=== PATIENT | male | born 1940 | race Caucasian/White ===

== ENCOUNTER 2018-10-04 06:52 | Day surgery (SDC) | payer BC ==
[2018-10-04] VITALS (17 sets, daily range): BP systolic 102–164; BP diastolic 51–99
[~2018-10-04] VITALS: Ht 175.3 cm; Wt 89.5 kg
[2018-10-04] MEDS ORDERED: normal saline 1000ml 1,000 ML IV SCH (07:10)
[2018-10-04] MEDS ORDERED: losartan (07:56)
[2018-10-04] MEDS ORDERED: LEVO150T PO (07:57)
[2018-10-04] MEDS ORDERED: ATOR10TA70 PO (07:58)
[2018-10-04 08:17] LABS: BASOPHILS % (AUTO) 0.3 % (0-1); EOSINOPHILS # (AUTO) 0.1 X10'3 (0-0.9); EOSINOPHILS % (AUTO) 1.5 % (0-6); HEMATOCRIT 40.9 % (42.0-52.0); HEMOGLOBIN 13.9 g/dl (14.0-17.9); LYMPHOCYTES # (AUTO) 0.3 X10'3 (1.1-4.8); LYMPHOCYTES % (AUTO) 6.4 % (21-51); MEAN CORPUSCULAR VOLUME 105.8 FL (78-98); MEAN PLATELET VOLUME 8.4 FL (7.4-10.4); MONOCYTES # (AUTO) 0.4 X10'3 (0-0.9); MONOCYTES % (AUTO) 10.1 % (2-12); NEUTROPHILS # (AUTO) 3.4 X10'3 (1.8-7.7); NEUTROPHILS % (AUTO) 81.7 % (42-75); PLATELET COUNT 233 X10'3 (140-440); RED BLOOD COUNT 3.86 X10'6 (4.70-6.10); WHITE BLOOD COUNT 4.1 X10'3 (4.5-11.0)
[2018-10-04] MEDS ORDERED: midazolam 2 mg/2 ml injection ONE (09:05)
[2018-10-04] MEDS ORDERED: fentaNYL/PF 50MCG/1 ML 2ML syringe ONE ×2 (09:05→09:12)
[2018-10-04] MEDS ORDERED: LIDOcaine 1%/PF 5ML 10 MG/ML VIAL SQ ONE (09:45)
[2018-10-04] MEDS ORDERED: fentaNYL/PF 50MCG/1 ML 2ML syringe IV PRN (09:45)
[2018-10-04 09:49] LABS: ALBUMIN 4.6 G/DL (3.4-5.0); ANION GAP 13 (8-16); BLOOD UREA NITROGEN 21 MG/DL (7-18); CALCIUM 10.5 MG/DL (8.5-10.1); CHLORIDE 98 MMOL/L (99-107); CREATININE 1.05 MG/DL (0.60-1.10); GLUCOSE 103 MG/DL (70-104); POTASSIUM 4.2 MMOL/L (3.5-5.1); SODIUM 135 MMOL/L (135-145); TOTAL CARBON DIOXIDE 23.7 MMOL/L (24-32); eGFR 68 ML/MIN
== END 2018-10-04 11:20 | disposition home or self-care (01) ==
LOC: SSTAY O 06:52
PROVIDERS: ATTEND Radiology Vascular & Interventional Radiology
DX: M89.8X8 Other specified disorders of bone, other site (principal); Z85.46 Personal history of malignant neoplasm of prostate; Z98.890 Other specified postprocedural states; Z98.49 Cataract extraction status, unspecified eye
CPT/HCPCS: 20225; 36415; 77012; 80048; 85025; 87070; J2250; J3010; J7030

== ENCOUNTER 2018-10-13 08:33 | Emergency (ER) | payer BC ==
[~2018-10-13] VITALS: Ht 175.3 cm; Wt 72.4 kg
[~2018-10-13 08:33] MED LIST: ATOR10TA70 PO; LEVO150T PO; losartan
[2018-10-13 08:43] VITALS: BP 135/84
[2018-10-13] MEDS ORDERED: METH4TAB81 PO (09:55)
[2018-10-13] MEDS ORDERED: DOXY100C43 PO (09:55)
== END 2018-10-13 10:09 | disposition home or self-care (01) ==
LOC: ER 08:33
DX: M79.672 Pain in left foot (principal); R22.42 Localized swelling, mass and lump, left lower limb; I10 Essential (primary) hypertension; G89.29 Other chronic pain; Z85.46 Personal history of malignant neoplasm of prostate; Z98.890 Other specified postprocedural states; Z79.899 Other long term (current) drug therapy
CPT/HCPCS: 73610; 99283

== ENCOUNTER 2019-02-02 09:19 | Emergency (ER) | payer BC, MEDICARE ==
[~2019-02-02] VITALS: Ht 175.3 cm; Wt 73.5 kg
[~2019-02-02 09:19] MED LIST changes: +METH4TAB81 PO
[2019-02-02] MEDS ORDERED: morphine 4 MG/ML inj SYRINge IV PRN (09:25)
[2019-02-02] MEDS ORDERED: normal saline 1000ML IV soln IVB ONE (09:25)
[2019-02-02] MEDS ORDERED: ondansetron/PF 4mg/2ml inj IV ONE (09:25)
[2019-02-02 10:06] LABS: CLARITY,URINE CLEAR (Clear); COLOR,URINE YELLOW (Yellow); GLUCOSE, URINE NEGATIVE (Neg); KETONES,URINE TRACE mg/dl (Neg); LEUKOCYTE ESTERASE ,URINE NEGATIVE (Neg); NITRITES, URINE NEGATIVE (Neg); OCCULT BLOOD,URINE NEGATIVE (Neg); PROTEIN,URINE TRACE mg/dl (Neg); UROBILINOGEN,URINE 0.2 E.U/dL (0.2-1.0)
[2019-02-02 10:08] LABS: UA COLLECTION TYPE CLN CATCH MIDSTREAM
[2019-02-02 10:11] LABS: BASOPHILS % (AUTO) 0.3 % (0-1); EOSINOPHILS % (AUTO) 0.4 % (0-6); HEMATOCRIT 38.1 % (42.0-52.0); HEMOGLOBIN 13.1 g/dl (14.0-17.9); LYMPHOCYTES # (AUTO) 0.3 X10'3 (1.1-4.8); LYMPHOCYTES % (AUTO) 5.2 % (21-51); MEAN CORPUSCULAR HEMOGLOBIN 36.2 PG (27.0-31.0); MEAN CORPUSCULAR HGB CONC 34.3 g/dL (33.0-36.5); MEAN CORPUSCULAR VOLUME 105.3 FL (78-98); MEAN PLATELET VOLUME 8.6 FL (7.4-10.4); MONOCYTES # (AUTO) 0.7 X10'3 (0-0.9); MONOCYTES % (AUTO) 11.1 % (2-12); NEUTROPHILS # (AUTO) 5.2 X10'3 (1.8-7.7); PLATELET COUNT 241 X10'3 (140-440); RED BLOOD COUNT 3.62 X10'6 (4.70-6.10); RED CELL DISTRIBUTION WIDTH 13.6 % (11.5-14.5); WHITE BLOOD COUNT 6.3 X10'3 (4.5-11.0)
[2019-02-02 10:17] LABS: HYALINE CASTS 0-3 /LPF (NEGATIVE)
[2019-02-02 10:18] LABS: BACTERIA,URINE FEW /HPF (Neg); RBC,URINE 0-2 /HPF (0-2); SQUAMOUS EPITHELIAL CELL,UR FEW /LPF (FEW); WBC,URINE 0-4 /HPF (0-4)
--- NOTE | 2019-02-02 10:22 | NUR ---
Covering Primary RN for break. Pt complains of tight spots in his chest over the last couple of minutes. EKG performed and Dr Ross notified. No new orders at this time.
[2019-02-02 10:24] LABS: ALANINE AMINOTRANSFERASE 30 U/L (12-78); ALBUMIN/GLOBULIN RATIO 1.2 (1.1-1.5); ALKALINE PHOSPHATASE 72 IU/L (46-116); ANION GAP 9 (8-16); ASPARTATE AMINO TRANSFERASE 20 U/L (10-37); BILIRUBIN,TOTAL 1.5 MG/DL (0.1-1.0); BLOOD UREA NITROGEN 20 MG/DL (7-18); BUN/CREATININE RATIO 17.1 (5.4-32.0); CHLORIDE 96 MMOL/L (99-107); CREATININE 1.17 MG/DL (0.60-1.10); GLUCOSE 105 MG/DL (70-104); LIPASE 85 U/L (73-393); POTASSIUM 4.1 MMOL/L (3.5-5.1); SODIUM 129 MMOL/L (135-145); TOTAL CARBON DIOXIDE 24.1 MMOL/L (24-32); TOTAL PROTEIN 7.4 G/DL (6.4-8.2); eGFR 60 ML/MIN
[2019-02-02 10:25] VITALS: BP 147/105
--- NOTE | 2019-02-02 10:26 | NUR ---
Pt states he is not having chest tightness at this time.
== END 2019-02-02 10:41 | disposition home or self-care (01) ==
LOC: ER 09:19
DX: E87.1 Hypo-osmolality and hyponatremia (principal); R10.9 Unspecified abdominal pain; M54.9 Dorsalgia, unspecified; I10 Essential (primary) hypertension; G89.29 Other chronic pain; Z98.890 Other specified postprocedural states; Z79.899 Other long term (current) drug therapy
CPT/HCPCS: 36415; 74176; 80053; 81001; 83690; 85025; 93005; 99284; J7030

== ENCOUNTER 2019-04-14 07:52 | Day surgery (SDC) | payer BC, MEDICARE ==
[~2019-04-14] VITALS: Ht 175.3 cm; Wt 88.9 kg
[2019-04-14] VITALS (8 sets, daily range): BP systolic 118–144; BP diastolic 56–77
[2019-04-14] MEDS ORDERED: normal saline 1000ml 1,000 ML IV PRN (08:20)
[2019-04-14] MEDS ORDERED: AMLO10TA13 PO (08:35)
[2019-04-14] MEDS ORDERED: DULO30CA52 PO (08:35)
[2019-04-14] MEDS ORDERED: FLO0.4C PO (08:35)
[2019-04-14] MEDS ORDERED: CLON0.5T5 PO (08:35)
[2019-04-14] MEDS ORDERED: ALEN70TA37 PO (08:35)
[2019-04-14 09:09] LABS: BASOPHILS % (AUTO) 0.3 % (0-1); EOSINOPHILS % (AUTO) 0.5 % (0-6); HEMATOCRIT 45.1 % (42.0-52.0); HEMOGLOBIN 15.6 g/dl (14.0-17.9); LYMPHOCYTES # (AUTO) 0.3 X10'3 (1.1-4.8); LYMPHOCYTES % (AUTO) 6.6 % (21-51); MEAN CORPUSCULAR HGB CONC 34.6 g/dL (33.0-36.5); MEAN CORPUSCULAR VOLUME 104.2 FL (78-98); MEAN PLATELET VOLUME 8.1 FL (7.4-10.4); MONOCYTES # (AUTO) 0.5 X10'3 (0-0.9); MONOCYTES % (AUTO) 11.9 % (2-12); NEUTROPHILS # (AUTO) 3.6 X10'3 (1.8-7.7); NEUTROPHILS % (AUTO) 80.7 % (42-75); PLATELET COUNT 254 X10'3 (140-440); RED BLOOD COUNT 4.32 X10'6 (4.70-6.10); RED CELL DISTRIBUTION WIDTH 13.9 % (11.5-14.5); WHITE BLOOD COUNT 4.5 X10'3 (4.5-11.0)
[2019-04-14 09:22] LABS: ALBUMIN 4.6 G/DL (3.4-5.0); ANION GAP 8 (8-16); BLOOD UREA NITROGEN 18 MG/DL (7-18); BUN/CREATININE RATIO 15.9 (5.4-32.0); CALCIUM 9.8 MG/DL (8.5-10.1); CHLORIDE 99 MMOL/L (99-107); CREATININE 1.13 MG/DL (0.60-1.10); GLUCOSE 114 MG/DL (70-104); POTASSIUM 4.4 MMOL/L (3.5-5.1); SODIUM 134 MMOL/L (135-145); TOTAL CARBON DIOXIDE 27.2 MMOL/L (24-32); eGFR 63 ML/MIN
[2019-04-14] MEDS ORDERED: LIDOcaine 1%/PF 5ML 10 MG/ML VIAL SQ ONE (10:10)
[2019-04-14] MEDS ORDERED: fentaNYL/PF 50MCG/1 ML 2ML syringe IV PRN (10:10)
[2019-04-14] MEDS ORDERED: fentaNYL/PF 50MCG/1 ML 2ML syringe ONE ×2 (10:13→10:34)
[2019-04-14] MEDS ORDERED: LIDOcaine 1%/PF 5ML 10 MG/ML VIAL ONE (10:15)
[2019-04-14] MEDS ORDERED: LIDOcaine 1% 30ml preserv. free vial SQ ONE (10:40)
[2019-04-14] MEDS ORDERED: midazolam 2 mg/2 ml injection ONE (10:52)
[2019-04-14] MEDS ORDERED: normal saline 1000ml 1,000 ML IV SCH (12:06)
[2019-04-14] MEDS ORDERED: HYDROcodone/acetaminophen 5mg/325mg tablet PO PRN (12:10)
[2019-04-14] MEDS ORDERED: morphine 4 MG/ML inj SYRINge IV PRN (12:10)
== END 2019-04-14 13:00 | disposition home or self-care (01) ==
LOC: SSTAY O 07:52
PROVIDERS: ATTEND Radiology Diagnostic Radiology
DX: R93.89 Abnormal findings on diagnostic imaging of other specified body structures (principal); E03.9 Hypothyroidism, unspecified; E78.00 Pure hypercholesterolemia, unspecified; I10 Essential (primary) hypertension; Z85.46 Personal history of malignant neoplasm of prostate; Z98.890 Other specified postprocedural states; Z98.1 Arthrodesis status; Z79.899 Other long term (current) drug therapy
CPT/HCPCS: 20225; 36415; 77002; 80048; 85025; 99152; 99153; J2250; J3010; J7030

== ENCOUNTER 2019-12-15 08:18 | Emergency (ER) | payer BC ==
[~2019-12-15] VITALS: Ht 175.3 cm; Wt 87.7 kg
[~2019-12-15 08:18] MED LIST changes: +ALEN70TA37 PO; +AMLO10TA13 PO; +CLON0.5T5 PO; +DULO30CA52 PO; +FLO0.4C PO; -METH4TAB81 PO
[2019-12-15 09:31] VITALS: BP 149/98
[2019-12-15] MEDS ORDERED: ketorolac tromethamine 15mg/ml inj. IM ONE (09:35)
[2019-12-15] MEDS ORDERED: orphenadrine citrate 60mg/2ml inj. IM ONE (09:35)
[2019-12-15] MEDS ORDERED: GABA300C PO (09:36)
[2019-12-15] MEDS ORDERED: METH-360 PO (09:36)
== END 2019-12-15 09:55 | disposition home or self-care (01) ==
LOC: ER 08:19
DX: M54.31 Sciatica, right side (principal); M54.32 Sciatica, left side; I10 Essential (primary) hypertension; G89.29 Other chronic pain; Z85.9 Personal history of malignant neoplasm, unspecified; Z98.890 Other specified postprocedural states; Z79.899 Other long term (current) drug therapy
CPT/HCPCS: 96372; 99284; J1885; J2360

== ENCOUNTER 2019-12-19 07:03 | Emergency (ER) | payer BC ==
[~2019-12-19] VITALS: Ht 175.3 cm; Wt 70.0 kg
[~2019-12-19 07:03] MED LIST changes: +GABA300C PO; +METH-360 PO
[2019-12-19 07:06] VITALS: BP 116/68
[2019-12-19] MEDS ORDERED: LIDOcaine 2% 10ml TOPICAL JELLY (Urojet) TP ONE (07:30)
--- NOTE | 2019-12-19 08:05 | NUR ---
PT STATES HE WOULD NOT LIKE TO HAVE THE F/C AT THIS TIME AND WOULD LIKE TO ATTEMPT IN THE URINAL. UNABLE TO VOID AT THIS TIME. MD NOTIFED AND OKAY FOR PT TO WAIT UNTIL AFTER MRI BUT ADVISE HIM HE WILL HAVE TO VOID PRIOR TO D/C. PT ADVISED. WAITING MRI.
--- NOTE | 2019-12-19 08:44 | NUR ---
TO CT VIA W/C
[2019-12-19 08:45] LABS: CLARITY,URINE CLEAR (Clear); COLOR,URINE YELLOW (Yellow); GLUCOSE, URINE NEGATIVE (Neg); KETONES,URINE 15 mg/dl (Neg); LEUKOCYTE ESTERASE ,URINE NEGATIVE (Neg); NITRITES, URINE NEGATIVE (Neg); OCCULT BLOOD,URINE NEGATIVE (Neg); PROTEIN,URINE 30 mg/dl (Neg)
[2019-12-19 08:54] LABS: UA COLLECTION TYPE CLN CATCH MIDSTREAM
[2019-12-19 08:55] LABS: BACTERIA,URINE NONE SEEN /HPF (Neg); COARSE GRANULAR CAST 0-3 /LPF (NEGATIVE); MUCUS STRANDS FEW /LPF (Neg); RBC,URINE NONE SEEN /HPF (0-2); SQUAMOUS EPITHELIAL CELL,UR FEW /LPF (FEW); WBC,URINE 0-4 /HPF (0-4)
--- NOTE | 2019-12-19 10:22 | NUR ---
PT IS ABLE TO URINATE INTO URINAL AT FREQUENT INTERVALS WITH @100CC AT A TIME. PT VERBALIZING HE IS READY TO GO HOME TO HAVE BREAKFAST AND FEED HIS ANIMALS. ADVISED.
[2019-12-19] MEDS ORDERED: SENN-263 PO (10:41)
== END 2019-12-19 10:49 | disposition home or self-care (01) ==
LOC: ER 07:03
DX: M54.5 Low back pain (principal); K59.00 Constipation, unspecified; G89.29 Other chronic pain; R33.9 Retention of urine, unspecified; I10 Essential (primary) hypertension; Z98.890 Other specified postprocedural states; Z79.899 Other long term (current) drug therapy
CPT/HCPCS: 72148; 81001; 99284

== ENCOUNTER 2019-12-27 01:17 | Emergency (ER) | payer BC ==
[~2019-12-27] VITALS: Ht 175.3 cm; Wt 85.9 kg
[~2019-12-27 01:17] MED LIST changes: +SENN-263 PO
[2019-12-27 01:21] VITALS: BP 101/60
[2019-12-27 01:47] LABS: BASOPHILS % (AUTO) 0.3 % (0-1); EOSINOPHILS # (AUTO) 0.1 X10'3 (0-0.9); EOSINOPHILS % (AUTO) 0.8 % (0-6); HEMATOCRIT 36.4 % (42.0-52.0); HEMOGLOBIN 12.2 g/dl (14.0-17.9); LYMPHOCYTES # (AUTO) 0.3 X10'3 (1.1-4.8); LYMPHOCYTES % (AUTO) 3.7 % (21-51); MEAN CORPUSCULAR HEMOGLOBIN 35.7 PG (27.0-31.0); MEAN CORPUSCULAR HGB CONC 33.6 g/dL (33.0-36.5); MEAN CORPUSCULAR VOLUME 106.3 FL (78-98); MEAN PLATELET VOLUME 7.9 FL (7.4-10.4); MONOCYTES # (AUTO) 0.7 X10'3 (0-0.9); MONOCYTES % (AUTO) 10.3 % (2-12); NEUTROPHILS % (AUTO) 84.9 % (42-75); PLATELET COUNT 338 X10'3 (140-440); RED BLOOD COUNT 3.42 X10'6 (4.70-6.10); RED CELL DISTRIBUTION WIDTH 13.6 % (11.5-14.5)
[2019-12-27 02:09] LABS: CLARITY,URINE CLEAR (Clear); COLOR,URINE YELLOW (Yellow); GLUCOSE, URINE NEGATIVE (Neg); KETONES,URINE NEGATIVE (Neg); LEUKOCYTE ESTERASE ,URINE NEGATIVE (Neg); NITRITES, URINE NEGATIVE (Neg); OCCULT BLOOD,URINE TRACE-INTACT (Neg); PH,URINE 6.5 (4.8-8.0); PROTEIN,URINE NEGATIVE (Neg); UROBILINOGEN,URINE 0.2 E.U/dL (0.2-1.0)
[2019-12-27 02:14] LABS: UA COLLECTION TYPE CLN CATCH MIDSTREAM
[2019-12-27 02:15] LABS: BACTERIA,URINE NONE SEEN /HPF (Neg); RBC,URINE 0-2 /HPF (0-2); SQUAMOUS EPITHELIAL CELL,UR FEW /LPF (FEW); WBC,URINE NONE SEEN /HPF (0-4)
[2019-12-27 02:19] LABS: ALANINE AMINOTRANSFERASE 23 U/L (12-78); ALBUMIN 3.3 G/DL (3.4-5.0); ALBUMIN/GLOBULIN RATIO 0.9 (1.1-1.5); ALKALINE PHOSPHATASE 105 IU/L (46-116); ANION GAP 9 (8-16); ASPARTATE AMINO TRANSFERASE 19 U/L (10-37); BILIRUBIN,TOTAL 0.7 MG/DL (0.1-1.0); BLOOD UREA NITROGEN 12 MG/DL (7-18); BUN/CREATININE RATIO 9.2 (5.4-32.0); CALCIUM 8.7 MG/DL (8.5-10.1); CHLORIDE 99 MMOL/L (99-107); GLUCOSE 136 MG/DL (70-104); POTASSIUM 4.3 MMOL/L (3.5-5.1); SODIUM 133 MMOL/L (135-145); TOTAL CARBON DIOXIDE 24.8 MMOL/L (24-32); TOTAL PROTEIN 6.8 G/DL (6.4-8.2); eGFR 53 ML/MIN
[2019-12-27] MEDS ORDERED: dexamethasone sod phosphate 10mg/ml inj IM STA (02:33)
--- NOTE | 2019-12-27 02:43 | NUR ---
CALLED [facility] FOR ROUND TRIP TO [facility] AND BACK FOR MRI AT 02:43. ETA FOR PAUL 15 MINS
--- NOTE | 2019-12-27 03:06 | NUR ---
PT PICKED UP BY [facility] FOR TRANSPORT TO [facility] MRI.
== END 2019-12-27 04:09 | disposition short-term general hospital (02) ==
LOC: ER 01:18
DX: R33.9 Retention of urine, unspecified (principal); R10.2 Pelvic and perineal pain; K59.00 Constipation, unspecified; I10 Essential (primary) hypertension; G89.29 Other chronic pain; Z85.9 Personal history of malignant neoplasm, unspecified; Z98.890 Other specified postprocedural states; Z79.899 Other long term (current) drug therapy
CPT/HCPCS: 36415; 51702; 80053; 81001; 85025; 96372; 99285; J1100; 99284

== ENCOUNTER 2020-04-25 21:34 | Emergency (ER) | payer BC ==
[~2020-04-25] VITALS: Ht 175.3 cm; Wt 86.4 kg
[2020-04-25] MEDS ORDERED: LIDOcaine 2% 10ml TOPICAL JELLY (Urojet) TP ONE (22:00)
[2020-04-26 00:26] VITALS: BP 168/93
== END 2020-04-26 00:15 | disposition home or self-care (01) ==
LOC: ER 21:34
DX: T83.011A Breakdown (mechanical) of indwelling urethral catheter, initial encounter (principal); R33.9 Retention of urine, unspecified; N48.89 Other specified disorders of penis; G89.29 Other chronic pain; Z98.890 Other specified postprocedural states; Z79.899 Other long term (current) drug therapy; Y69 Unspecified misadventure during surgical and medical care; Y92.89 Other specified places as the place of occurrence of the external cause
CPT/HCPCS: 51702; 99284

== ENCOUNTER 2020-05-29 10:08 | Inpatient (IN) | payer BC ==
[~2020-05-29] VITALS: Ht 175.3 cm; Wt 81.0 kg
[2020-05-29] MEDS ORDERED: nitroGLYCERIN 0.4mg/hour patch TD ONE (11:50)
[2020-05-29] MEDS ORDERED: normal saline 1000ML IV soln IVB ONE (11:50)
[2020-05-29 11:56] LABS: BASOPHILS % (AUTO) 0.1 % (0-1); EOSINOPHILS % (AUTO) 0.1 % (0-6); HEMATOCRIT 36.6 % (42.0-52.0); HEMOGLOBIN 12.6 g/dl (14.0-17.9); LYMPHOCYTES # (AUTO) 0.3 X10'3 (1.1-4.8); LYMPHOCYTES % (AUTO) 3.2 % (21-51); MEAN CORPUSCULAR HEMOGLOBIN 35.9 PG (27.0-31.0); MEAN CORPUSCULAR HGB CONC 34.4 g/dL (33.0-36.5); MEAN CORPUSCULAR VOLUME 104.3 FL (78-98); MEAN PLATELET VOLUME 8.5 FL (7.4-10.4); MONOCYTES # (AUTO) 0.7 X10'3 (0-0.9); NEUTROPHILS # (AUTO) 7.2 X10'3 (1.8-7.7); NEUTROPHILS % (AUTO) 88.6 % (42-75); PLATELET COUNT 247 X10'3 (140-440); RED BLOOD COUNT 3.51 X10'6 (4.70-6.10); RED CELL DISTRIBUTION WIDTH 14.8 % (11.5-14.5); WHITE BLOOD COUNT 8.2 X10'3 (4.5-11.0)
[2020-05-29 12:18] LABS: ALANINE AMINOTRANSFERASE 35 U/L (12-78); ALBUMIN 3.6 G/DL (3.4-5.0); ALKALINE PHOSPHATASE 114 IU/L (46-116); ANION GAP 9 (8-16); ASPARTATE AMINO TRANSFERASE 26 U/L (10-37); BILIRUBIN,TOTAL 1.3 MG/DL (0.1-1.0); BLOOD UREA NITROGEN 25 MG/DL (7-18); BUN/CREATININE RATIO 17.7 (5.4-32.0); CALCIUM 9.4 MG/DL (8.5-10.1); CHLORIDE 99 MMOL/L (99-107); CREATININE 1.41 MG/DL (0.60-1.10); GLUCOSE 124 MG/DL (70-104); POTASSIUM 4.1 MMOL/L (3.5-5.1); SODIUM 133 MMOL/L (135-145); TOTAL CARBON DIOXIDE 25.3 MMOL/L (24-32); TOTAL PROTEIN 7.1 G/DL (6.4-8.2); eGFR 48 ML/MIN
[2020-05-29 13:01] LABS: CLARITY,URINE CLEAR (Clear); COLOR,URINE YELLOW (Yellow); GLUCOSE, URINE NEGATIVE (Neg); KETONES,URINE NEGATIVE (Neg); LEUKOCYTE ESTERASE ,URINE NEGATIVE (Neg); NITRITES, URINE NEGATIVE (Neg); OCCULT BLOOD,URINE NEGATIVE (Neg); PROTEIN,URINE NEGATIVE (Neg); UROBILINOGEN,URINE 0.2 E.U/dL (0.2-1.0)
[2020-05-29 13:08] LABS: UA COLLECTION TYPE CLN CATCH MIDSTREAM
[2020-05-29] MEDS ORDERED: ondansetron/PF 4mg/2ml inj IV PRN (15:00)
[2020-05-29] MEDS ORDERED: normal saline 1000ml 1,000 ML IV SCH (15:00)
[2020-05-29] MEDS ORDERED: magnesium 2GM in 50ml NS 50 ML IV PRN (15:00)
[2020-05-29] MEDS ORDERED: potassium CL 10mEq/100ml bag 100 ML IV PRN ×2 (15:00)
[2020-05-29] MEDS ORDERED: magnesium Cl slow-release 64mg tablet PO PRN (15:00)
[2020-05-29] MEDS ORDERED: acetaminophen 325mg tablet PO PRN ×2 (15:00)
[2020-05-29] MEDS ORDERED: magnesium 4gm in 100ml NS 100 ML IV PRN (15:00)
[2020-05-29] MEDS ORDERED: morphine 2 MG/ML inj. syringe IV PRN (15:00)
[2020-05-29] MEDS ORDERED: HYDROcodone/acetaminophen 5mg/325mg tablet PO PRN (15:00)
[2020-05-29] MEDS ORDERED: potassium Cl 20 mEq SR tablet PO PRN ×2 (15:00)
[2020-05-29] MEDS ORDERED: HYDR-3686 PO (15:17)
[2020-05-29] MEDS ORDERED: LOSA100T57 PO (15:17)
[2020-05-29] MEDS ORDERED: ACET-1 PO (15:18)
[2020-05-29] MEDS ORDERED: TRAZ-251 PO (15:18)
[2020-05-29 15:38] LABS: HEMOGLOBIN A1C 5.6 % (4.5-6.2)
[2020-05-29] MEDS ORDERED: DUTA1CPM4 PO (15:52)
[2020-05-29] MEDS ORDERED: LEVO500T89 PO (19:00)
--- NOTE | 2020-05-29 19:01 | NUR ---
Patient in room ED 5. I have received report from Jay PEARSON and had the opportunity to ask questions and assume patient care.
[2020-05-29 19:35] VITALS: BP 141/83
[2020-05-29] MEDS: K and/or MAG REPLACEMENT MC SCH (20:00)
[2020-05-29] MEDS ORDERED: hydrOXYzine 25 MG tablet PO SCH (21:00)
[2020-05-29] MEDS ORDERED: traZODone 50mg tablet PO SCH (21:00)
[2020-05-29] MEDS: docusate sod 100mg capsule PO SCH (21:40)
[2020-05-29] MEDS: heparin, porcine 5000 units/ml vial SQ SCH (21:40)
[2020-05-29 22:00] VITALS: BP 117/60
[2020-05-30 02:00] VITALS: BP 115/70
--- NOTE | 2020-05-30 06:30 | NUR ---
received report from eric james
[2020-05-30 06:51] LABS: BASOPHILS % (AUTO) 0.5 % (0-1); EOSINOPHILS % (AUTO) 0.7 % (0-6); HEMOGLOBIN 10.8 g/dl (14.0-17.9); LYMPHOCYTES # (AUTO) 0.4 X10'3 (1.1-4.8); LYMPHOCYTES % (AUTO) 8.4 % (21-51); MEAN CORPUSCULAR HEMOGLOBIN 35.1 PG (27.0-31.0); MEAN CORPUSCULAR HGB CONC 33.8 g/dL (33.0-36.5); MEAN CORPUSCULAR VOLUME 103.8 FL (78-98); MEAN PLATELET VOLUME 7.9 FL (7.4-10.4); MONOCYTES # (AUTO) 0.6 X10'3 (0-0.9); MONOCYTES % (AUTO) 12.9 % (2-12); NEUTROPHILS # (AUTO) 3.6 X10'3 (1.8-7.7); NEUTROPHILS % (AUTO) 77.5 % (42-75); PLATELET COUNT 205 X10'3 (140-440); RED BLOOD COUNT 3.08 X10'6 (4.70-6.10); RED CELL DISTRIBUTION WIDTH 14.9 % (11.5-14.5); WHITE BLOOD COUNT 4.6 X10'3 (4.5-11.0)
[2020-05-30 06:54] LABS: ALANINE AMINOTRANSFERASE 27 U/L (12-78); ALKALINE PHOSPHATASE 95 IU/L (46-116); ANION GAP 8 (8-16); ASPARTATE AMINO TRANSFERASE 18 U/L (10-37); BILIRUBIN,TOTAL 0.9 MG/DL (0.1-1.0); BLOOD UREA NITROGEN 20 MG/DL (7-18); BUN/CREATININE RATIO 19.4 (5.4-32.0); CALCIUM 8.1 MG/DL (8.5-10.1); CHLORIDE 104 MMOL/L (99-107); CHOL/HDL RATIO 1.3 (0.00-4.99); CHOLESTEROL 161 MG/DL (0-200); CREATININE 1.03 MG/DL (0.60-1.10); GLUCOSE 92 MG/DL (70-104); HDL CHOLESTEROL 122 MG/DL (35-60); LDL CHOLESTEROL 36 MG/DL (50-100); POTASSIUM 3.8 MMOL/L (3.5-5.1); SODIUM 136 MMOL/L (135-145); TOTAL CARBON DIOXIDE 23.8 MMOL/L (24-32); TRIGLYCERIDES 52 MG/DL (20-135); eGFR 69 ML/MIN
[2020-05-30 07:00] VITALS: BP 119/65
[2020-05-30] MEDS ORDERED: amLODIPine 5mg tablet PO SCH (08:00)
[2020-05-30] MEDS ORDERED: dutasteride 0.5 MG capsule PO SCH (08:00)
[2020-05-30] MEDS ORDERED: atorvastatin 20mg tablet PO SCH (08:00)
[2020-05-30] MEDS: K and/or MAG REPLACEMENT MC SCH (08:00)
[2020-05-30] MEDS ORDERED: sennosides 8.6mg tablet PO SCH (08:00)
[2020-05-30] MEDS ORDERED: tamsulosin 0.4mg capsule PO SCH (08:00)
[2020-05-30] MEDS ORDERED: losartan 50mg tablet PO SCH (08:00)
[2020-05-30] MEDS ORDERED: levoFLOXACIN 250mg tablet PO SCH (08:00)
[2020-05-30] MEDS ORDERED: levoTHYROXINE 75mcg tablet PO SCH (08:00)
[2020-05-30] MEDS: docusate sod 100mg capsule PO SCH (09:28)
[2020-05-30] MEDS: heparin, porcine 5000 units/ml vial SQ SCH (09:32)
[2020-05-30 10:00] VITALS: BP 146/75
--- NOTE | 2020-05-30 13:00 | NUR ---
pt d/c with instructions, understanding of instructions and w/all belongings in wheelchair accompanied by nursing staff to private vehicle to go home and f/u w/pcp
== END 2020-05-30 13:33 | disposition home or self-care (01) | DRG 948 ==
LOC: ER 10:08 → ED HOLD 14:58 → ORTHO 4S 19:25
PROVIDERS: ADMIT Internal Medicine; ATTEND Internal Medicine
DX: R53.1 Weakness (principal); E03.9 Hypothyroidism, unspecified; E78.00 Pure hypercholesterolemia, unspecified; E78.5 Hyperlipidemia, unspecified; G89.4 Chronic pain syndrome; I12.9 Hypertensive chronic kidney disease with stage 1 through stage 4 chronic kidney disease, or unspecified chronic kidney disease; M19.90 Unspecified osteoarthritis, unspecified site; N18.30 Chronic kidney disease, stage 3 unspecified; M54.9 Dorsalgia, unspecified; Z91.81 History of falling; Z87.891 Personal history of nicotine dependence
CPT/HCPCS: 36415; 70450; 70544; 70551; 71045; 80053; 80061; 81003; 83036; 83735; 84443; 84484; 85025; 85610; 87081; 93005; 93306; 93880; 97161; 97530; G0378; J1644; J7030; Q0177

== ENCOUNTER → 2020-09-26 | Emergency (ER) | payer BC ==
[~2020-09-26] VITALS: Ht 177.8 cm; Wt 90.0 kg
[~2020-09-26] MED LIST changes: -CLON0.5T5 PO; +DUTA1CPM4 PO; +FINA5TAB12 PO; +HYDR-3686 PO; +LIDOcaine 2% 10ml TOPICAL JELLY (Urojet) TP ONE; +LOSA100T57 PO; -METH-360 PO; +TRAZ-251 PO; -losartan; +normal saline 1000ml 1,000 ML IV ONE
[2020-09-26 07:40] VITALS: BP 162/74
[2020-09-26 10:15] LABS: BASOPHILS % (AUTO) 0.3 % (0-1); EOSINOPHILS % (AUTO) 0.8 % (0-6); HEMATOCRIT 37.2 % (42.0-52.0); HEMOGLOBIN 12.5 g/dl (14.0-17.9); LYMPHOCYTES # (AUTO) 0.3 X10'3 (1.1-4.8); LYMPHOCYTES % (AUTO) 10.5 % (21-51); MEAN CORPUSCULAR HGB CONC 33.5 g/dL (33.0-36.5); MEAN CORPUSCULAR VOLUME 104.4 FL (78-98); MEAN PLATELET VOLUME 8.6 FL (7.4-10.4); MONOCYTES # (AUTO) 0.4 X10'3 (0-0.9); MONOCYTES % (AUTO) 12.9 % (2-12); NEUTROPHILS # (AUTO) 2.4 X10'3 (1.8-7.7); NEUTROPHILS % (AUTO) 75.5 % (42-75); PLATELET COUNT 222 X10'3 (140-440); RED BLOOD COUNT 3.56 X10'6 (4.70-6.10); RED CELL DISTRIBUTION WIDTH 14.2 % (11.5-14.5); WHITE BLOOD COUNT 3.1 X10'3 (4.5-11.0)
[2020-09-26 10:25] LABS: ALANINE AMINOTRANSFERASE 35 U/L (12-78); ALBUMIN 3.9 G/DL (3.4-5.0); ALBUMIN/GLOBULIN RATIO 1.1 (1.1-1.5); ALKALINE PHOSPHATASE 101 IU/L (46-116); ANION GAP 7 (8-16); ASPARTATE AMINO TRANSFERASE 39 U/L (10-37); BILIRUBIN,TOTAL 0.5 MG/DL (0.1-1.0); BLOOD UREA NITROGEN 14 MG/DL (7-18); BUN/CREATININE RATIO 16.1 (5.4-32.0); CALCIUM 9.2 MG/DL (8.5-10.1); CHLORIDE 97 MMOL/L (99-107); CREATININE 0.87 MG/DL (0.60-1.10); GLUCOSE 115 MG/DL (70-104); POTASSIUM 4.6 MMOL/L (3.5-5.1); SODIUM 131 MMOL/L (135-145); TOTAL CARBON DIOXIDE 26.7 MMOL/L (24-32); TOTAL PROTEIN 7.4 G/DL (6.4-8.2); eGFR 84 ML/MIN
== END | disposition home or self-care (01) ==
LOC: ER 07:38
DX: R34 Anuria and oliguria (principal); R33.9 Retention of urine, unspecified; E78.00 Pure hypercholesterolemia, unspecified; I10 Essential (primary) hypertension; E03.9 Hypothyroidism, unspecified; M19.90 Unspecified osteoarthritis, unspecified site; G89.29 Other chronic pain; Z72.89 Other problems related to lifestyle; Z98.890 Other specified postprocedural states; Z79.899 Other long term (current) drug therapy
CPT/HCPCS: 36415; 80053; 85025; 99283

== ENCOUNTER 2020-09-27 03:47 | Emergency (ER) | payer BC ==
[~2020-09-27] VITALS: Ht 175.3 cm; Wt 87.3 kg
[~2020-09-27 03:47] MED LIST changes: -FINA5TAB12 PO; -FLO0.4C PO; -LIDOcaine 2% 10ml TOPICAL JELLY (Urojet) TP ONE; -normal saline 1000ml 1,000 ML IV ONE
[2020-09-27 03:57] VITALS: BP 126/70
[2020-09-27] MEDS ORDERED: LIDOcaine 2% 10ml TOPICAL JELLY (Urojet) TP ONE (04:10)
--- NOTE | 2020-09-27 05:46 | NUR ---
Bladder scan reveals 628 mls urine in bladder with Renae in place. Approx. 300 ml yellow, cloudy urine in leg bag. Pt Renae DC'd per MD order. 5 mls fluid drawn out of balloon and Renae removed. Pt was able to void approx 400 ml urine w/ gross hematuria and clots into urinal. Pt stated relief of pain after Renae removal. Pt refused to have another Renae placed. MD discussed risks and benefits w/ patient.
[2020-09-28] MEDS ORDERED: FLO0.4C PO ×2 (13:24→16:24)
[2020-09-28] MEDS ORDERED: FINA5TAB12 PO (13:24)
== END 2020-09-27 05:59 | disposition left against medical advice (07) ==
LOC: ER 03:48
DX: Z53.29 Procedure and treatment not carried out because of patient's decision for other reasons (principal); R33.9 Retention of urine, unspecified; R10.30 Lower abdominal pain, unspecified; R31.0 Gross hematuria; E78.00 Pure hypercholesterolemia, unspecified; I10 Essential (primary) hypertension; E03.9 Hypothyroidism, unspecified; M19.90 Unspecified osteoarthritis, unspecified site; G89.29 Other chronic pain; Z87.440 Personal history of urinary (tract) infections; Z85.9 Personal history of malignant neoplasm, unspecified; Z98.890 Other specified postprocedural states; Z72.89 Other problems related to lifestyle; Z79.899 Other long term (current) drug therapy
CPT/HCPCS: 99284

== ENCOUNTER 2020-09-28 09:07 | Inpatient (IN) | payer BC ==
[~2020-09-28] VITALS: Ht 182.9 cm; Wt 94.0 kg
--- NOTE | 2020-09-28 09:20 | NUR ---
Respond to stroke alert bed 4, pt has stroke sympoms of left arm, and leg weakness. He is unable to remember when this started. He was in our ed yesterday for urine retention and left ama. I have call in to caregiver Guillermo who found him this morning. Left message. Pt is has multiple abrasions on right side, and under both arms. Will go to CT as soon as it is available.
[2020-09-28] MEDS ORDERED: iohexol 350MG/ML 100ml bottle IV ONE (09:32)
[2020-09-28 09:34] LABS: BASOPHILS % (AUTO) 0.1 % (0-1); EOSINOPHILS % (AUTO) 0 % (0-6); HEMATOCRIT 36.4 % (42.0-52.0); HEMOGLOBIN 12.2 g/dl (14.0-17.9); LYMPHOCYTES # (AUTO) 0.2 X10'3 (1.1-4.8); LYMPHOCYTES % (AUTO) 0.9 % (21-51); MEAN CORPUSCULAR HEMOGLOBIN 34.9 PG (27.0-31.0); MEAN CORPUSCULAR HGB CONC 33.5 g/dL (33.0-36.5); MEAN CORPUSCULAR VOLUME 104.4 FL (78-98); MEAN PLATELET VOLUME 9.1 FL (7.4-10.4); MONOCYTES # (AUTO) 0.6 X10'3 (0-0.9); MONOCYTES % (AUTO) 2.4 % (2-12); NEUTROPHILS # (AUTO) 25.5 X10'3 (1.8-7.7); NEUTROPHILS % (AUTO) 96.6 % (42-75); PLATELET COUNT 125 X10'3 (140-440); RED BLOOD COUNT 3.48 X10'6 (4.70-6.10); RED CELL DISTRIBUTION WIDTH 14.7 % (11.5-14.5)
[2020-09-28] MEDS ORDERED: normal saline 1000ML IV soln IVB ONE (09:35)
[2020-09-28 09:37] LABS: WHITE BLOOD COUNT 26.4 X10'3 (4.5-11.0)
[2020-09-28] MEDS ORDERED: levoFLOXACIN-Levaquin 750MG/D5 150 ML IV ONE (09:40)
[2020-09-28 09:51] LABS: PARTIAL THROMBOPLASTIN TIME 35 SECONDS (22-32)
[2020-09-28 09:54] LABS: PLATELET ESTIMATE DECREASED; TOTAL CELLS COUNTED 100
--- NOTE | 2020-09-28 09:57 | NUR ---
CRITICAL FROM LAB, LACTIC ACID 4.6, NOTIFIED
--- NOTE | 2020-09-28 10:00 | NUR ---
Pt back from CT, Dr. wilcox via SOC for telemedicine consult. NIHSS 9
[2020-09-28 10:02] LABS: ALANINE AMINOTRANSFERASE 255 U/L (12-78); ALBUMIN/GLOBULIN RATIO 0.8 (1.1-1.5); ALKALINE PHOSPHATASE 96 IU/L (46-116); ANION GAP 14 (8-16); ASPARTATE AMINO TRANSFERASE 903 U/L (10-37); BILIRUBIN,TOTAL 1.6 MG/DL (0.1-1.0); BLOOD UREA NITROGEN 33 MG/DL (7-18); BUN/CREATININE RATIO 16.2 (5.4-32.0); CALCIUM 8.3 MG/DL (8.5-10.1); CHLORIDE 92 MMOL/L (99-107); CREATININE 2.04 MG/DL (0.60-1.10); ETHANOL < 0.010 GM/DL (0.0-0.010); GLUCOSE 139 MG/DL (70-104); SODIUM 126 MMOL/L (135-145); TROPONIN I < 0.04 NG/ML (0.0-0.05); eGFR 32 ML/MIN
[2020-09-28 10:03] LABS: POTASSIUM 6.2 MMOL/L (3.5-5.1)
[2020-09-28] MEDS ORDERED: insulin regular, human U-100 3ml vial - multi-dose IV ONE (10:20)
[2020-09-28] MEDS ORDERED: CALCIUM GLUC 1gm/50ml NACL,iso 100 ML IV ONE (10:20)
[2020-09-28] MEDS ORDERED: dextrose 50%-water 50ml dispensing syringe IV ONE (10:20)
[2020-09-28] MEDS ORDERED: albuterol 2.5 MG/3 ML nebule NEB ONE (10:20)
[2020-09-28] MEDS ORDERED: normal saline 1000ML IV soln IV ONE (10:25)
--- NOTE | 2020-09-28 10:30 | NUR ---
Guillermo client care representative returns call, he discovered pt wedged between bed and wall this morning, he saw him last at 5pm yesterday. Dr. Soriano and Dr. De Los Santos updated. Dr. Soriano aware of labs, GFR and potential renal impairment. CTA ordered to rule out LVO .
--- NOTE | 2020-09-28 11:00 | NUR ---
Pt does now report he remembers falling to floor due to weakness, this was some time prior to midnight.
--- NOTE | 2020-09-28 11:08 | NUR ---
rn attempted to place muñoz for urine. cannot get past prostate. md notified.
[2020-09-28] MEDS ORDERED: TETanus/Pertussis (Acell)/Diphther VAC/PF (Tdap-Adult) 0.5ml syringe IMVAC ONE (11:50)
--- NOTE | 2020-09-28 12:00 | NUR ---
Pt is currently in CT for CTA head and neck.
[2020-09-28] MEDS ORDERED: LIDOcaine 2% 10ml TOPICAL JELLY (Urojet) MM ONE (12:05)
[2020-09-28] MEDS ORDERED: mag hydrox/Alum hydrox/simeth 30ml oral suspension PO PRN (12:20)
[2020-09-28] MEDS: normal saline 1000ml 1,000 ML IV SCH ×2 (12:20→23:17)
[2020-09-28] MEDS ORDERED: magnesium hydroxide 30ml (MOM) UD suspension PO PRN (12:20)
[2020-09-28] MEDS ORDERED: acetaminophen 325mg tablet PO PRN ×2 (12:20)
[2020-09-28] MEDS ORDERED: morphine 2 MG/ML inj. syringe IV PRN (12:20)
[2020-09-28 12:59] LABS: CHOL/HDL RATIO 1.3 (0.00-4.99); CHOLESTEROL 181 MG/DL (0-200); HDL CHOLESTEROL 135 MG/DL (35-60); LDL CHOLESTEROL 28 MG/DL (50-100); TRIGLYCERIDES 97 MG/DL (20-135)
--- NOTE | 2020-09-28 13:00 | NUR ---
REPORT CALLED TO MICHEL MINER
--- NOTE | 2020-09-28 13:02 | NUR ---
Patient in room . I have received report from Katie PEARSON and had the opportunity to ask questions and assume patient care.
--- NOTE | 2020-09-28 13:19 | NUR ---
PER EMS PATIENT LIVING IN VERY POOR CONDITIONS. PATIENT COVERED IN DIRT LIKE HE FELL OUTSIDE. PER EMS PATIENT WAS INSIDE. PATIENT BEING TAKEN UPSTAIRS AND REPORTS HE WOULD LIKE TO LEAVE. RN TRIED TO EXPLAIN PATIETN TOO SICK TO LEAVE AND NOT APPROPRIATE LIVING CONDITIONS.
[2020-09-28] MEDS ORDERED: FLO0.4C PO ×2 (13:24→16:24)
[2020-09-28] MEDS ORDERED: FINA5TAB12 PO (13:24)
[2020-09-28 13:45] LABS: URINE AMPHETAMINE SCREEN NEGATIVE (Neg); URINE BARBITUATE SCREEN NEGATIVE (Neg); URINE BENZODIAZEPINES SCREEN NEGATIVE (Neg); URINE CANNABINOID SCREEN NEGATIVE (Neg); URINE COCAINE SCREEN NEGATIVE (Neg); URINE METHADONE SCREEN NEGATIVE (Neg); URINE OPIATE SCREEN NEGATIVE (Neg); URINE PHENCYCLIDINE SCREEN NEGATIVE (Neg)
[2020-09-28 13:47] LABS: CLARITY,URINE BLOODY (Clear); COLOR,URINE RED (Yellow); UA COLLECTION TYPE FOLEY CATH
[2020-09-28 13:53] LABS: BACTERIA,URINE 3+ /HPF (Neg); RBC,URINE TNTC /HPF (0-2)
[2020-09-28 13:54] LABS: MUCUS STRANDS MODERATE /LPF (Neg); SQUAMOUS EPITHELIAL CELL,UR FEW /LPF (FEW); TRANSITIONAL EPI CELLS,URINE MANY /HPF
[2020-09-28 13:55] LABS: HYALINE CASTS 0-3 /LPF (NEGATIVE)
[2020-09-28 13:56] LABS: WBC,URINE 50-100 /HPF (0-4)
[2020-09-28 14:02] LABS: POTASSIUM 4.4 MMOL/L (3.5-5.1)
[2020-09-28 14:15] LABS: WBC CLUMPS,URINE MANY /HPF (NEGATIVE)
--- NOTE | 2020-09-28 14:16 | NUR ---
PAGER ID: [phone] MESSAGE: [phone] Doni Thomas. His left upper arm is more swollen than the right and his sensation is decrease. Do you want a vascular study? also has 3+ bacteria in urine only on Zosyn. Alessandra ext [phone]
[2020-09-28 14:25] VITALS: BP 106/67
[2020-09-28 15:03] LABS: CREATINE KINASE 92568 U/L (39-308)
--- NOTE | 2020-09-28 15:18 | NUR ---
promotional table spacer PAGER ID: [phone] MESSAGE: [place] [id number]. Alessandra ext [phone]
--- NOTE | 2020-09-28 16:15 | NUR ---
PAGER ID: [phone] MESSAGE: [phone] William concern for compartment syndrome secondary to rhabdo. ZAIN [phone]
--- NOTE | 2020-09-28 16:20 | NUR ---
Spoke with Dr. Martinez about possibility of compartment syndrome in the patients left arm due to decreased pulse in his left radius and the need to doppler it with increased upper extremity swelling. He asked to make sure a CPK is ordered for the next couple of days and that he will consult ortho. Addendum: 09/28/20 at 1637 by Alessandra Gresham RN Spoke to Dr. Martinez and he consulted Dr. Nuno Silverio and he said to keep an eye on his Left upper extremity and if it is soft swelling it is OK. But if it becomes rock hard than to page him or call Dr. Nuno Silverio
[2020-09-28] MEDS ORDERED: aspirin 300mg supp.rect RC ONE (16:40)
[2020-09-28] MEDS: piperacillin/tazo 4.5gm/100ml 100 ML IV SCH ×2 (16:47→23:14)
[2020-09-28] MEDS: morphine 2 MG/ML inj. syringe IV PRN ×2 (17:38→21:14)
--- NOTE | 2020-09-28 17:51 | NUR ---
patient is being transported to mri
--- NOTE | 2020-09-28 18:32 | NUR ---
Patient in room ORTHO 4006. I have received report from Theresa PEARSON and had the opportunity to ask questions and assume patient care. Addendum: 09/28/20 at 1832 by Alessandra Gresham RN Problems reprioritized. Patient report given, Theresa PEARSON questions answered & plan of care reviewed with .
[2020-09-28] MEDS: finasteride 5mg tablet PO SCH (21:00)
[2020-09-28] MEDS: traZODone 50mg tablet PO SCH (21:04)
[2020-09-28] MEDS: duloxetine 30mg CAPSULE.DR PO SCH (21:04)
[2020-09-28 22:00] VITALS: BP 96/56
[2020-09-29] VITALS (7 sets, daily range): BP systolic 88–120; BP diastolic 47–62
--- NOTE | 2020-09-29 06:36 | NUR ---
Problems reprioritized. Patient report given, questions answered & plan of care reviewed with MICHEL GALVAN AND MICHEL SANCHEZ.
--- NOTE | 2020-09-29 06:38 | NUR ---
Patient in room ORTHO 4006. I have received report from Alvina PEARSON and had the opportunity to ask questions and assume patient care.
[2020-09-29 06:55] LABS: BASOPHILS % (AUTO) 0.3 % (0-1); EOSINOPHILS # (AUTO) 0.1 X10'3 (0-0.9); EOSINOPHILS % (AUTO) 0.4 % (0-6); HEMATOCRIT 38.8 % (42.0-52.0); HEMOGLOBIN 12.9 g/dl (14.0-17.9); LYMPHOCYTES # (AUTO) 0.1 X10'3 (1.1-4.8); LYMPHOCYTES % (AUTO) 0.8 % (21-51); MEAN CORPUSCULAR HEMOGLOBIN 35.4 PG (27.0-31.0); MEAN CORPUSCULAR HGB CONC 33.2 g/dL (33.0-36.5); MEAN CORPUSCULAR VOLUME 106.6 FL (78-98); MEAN PLATELET VOLUME 9.3 FL (7.4-10.4); MONOCYTES # (AUTO) 0.7 X10'3 (0-0.9); MONOCYTES % (AUTO) 4.6 % (2-12); NEUTROPHILS # (AUTO) 13.3 X10'3 (1.8-7.7); NEUTROPHILS % (AUTO) 93.9 % (42-75); PLATELET COUNT 79 X10'3 (140-440); RED BLOOD COUNT 3.64 X10'6 (4.70-6.10); RED CELL DISTRIBUTION WIDTH 15.1 % (11.5-14.5); WHITE BLOOD COUNT 14.2 X10'3 (4.5-11.0)
--- NOTE | 2020-09-29 06:57 | NUR ---
Patient in room ORTHO 4006. I have received report from MICHEL Cardenas and had the opportunity to ask questions and assume patient care. Gema Harkins RN will provide care for pt. I will monitor all care and assist when needed.
[2020-09-29] MEDS: normal saline 1000ml 1,000 ML IV SCH ×2 (08:20→20:01)
[2020-09-29 08:46] LABS: TOTAL CELLS COUNTED 100
[2020-09-29 08:47] LABS: PLATELET ESTIMATE DECREASED
[2020-09-29 09:03] LABS: ALANINE AMINOTRANSFERASE 654 U/L (12-78); ALBUMIN 2.2 G/DL (3.4-5.0); ALBUMIN/GLOBULIN RATIO 0.6 (1.1-1.5); ALKALINE PHOSPHATASE 73 IU/L (46-116); ANION GAP 15 (8-16); BILIRUBIN,TOTAL 1.2 MG/DL (0.1-1.0); BLOOD UREA NITROGEN 48 MG/DL (7-18); CALCIUM 6.8 MG/DL (8.5-10.1); CHLORIDE 98 MMOL/L (99-107); CREATININE 2.53 MG/DL (0.60-1.10); GLUCOSE 111 MG/DL (70-104); POTASSIUM 5.6 MMOL/L (3.5-5.1); SODIUM 129 MMOL/L (135-145); TOTAL PROTEIN 5.9 G/DL (6.4-8.2); eGFR 25 ML/MIN
[2020-09-29] MEDS: levoTHYROXINE 75mcg tablet PO SCH (09:31)
[2020-09-29] MEDS: duloxetine 30mg CAPSULE.DR PO SCH ×2 (09:31→20:02)
[2020-09-29] MEDS: piperacillin/tazo 4.5gm/100ml 100 ML IV SCH ×3 (09:47→23:48)
[2020-09-29 09:50] LABS: ASPARTATE AMINO TRANSFERASE 3212 U/L (10-37); CREATINE KINASE > 100000 U/L (39-308)
[2020-09-29] MEDS: atorvastatin 10mg tablet PO SCH (09:52)
--- NOTE | 2020-09-29 11:07 | NUR ---
Cj Consult: Cj Anne; skin intact per EMR. Addendum: 09/29/20 at [address] Amended: Links added.
--- NOTE | 2020-09-29 11:55 | NUR ---
Page Sent PAGER ID: [phone] MESSAGE: LAURA PEARSON [phone] RE: GAIL CADE 4006... POSITIVE BLOOD CULTURE, 09/28/20 [id number] ANEROBIC GRAM - SUHAS
[2020-09-29] MEDS: sodium bicarbonate (8.4%) inj. 50 MEQ in dextrose 5%-water 1,000 ML IV SCH ×2 (12:52→23:48)
[2020-09-29] MEDS: morphine 2 MG/ML inj. syringe IV PRN (13:08)
--- NOTE | 2020-09-29 13:08 | NUR ---
PT C/O PAIN 03/25. SPOKE WITH MD WHO RECOMMENDED 2MG MORPHINE. PULL MEDICATIONS OUT OF OMNICELL AND PT REFUSED MORPHINE. PT STATED HE WANTED NORCO INSTEAD. RETURNED MORPHINE AND PULLED NORCO OUT OF OMNICELL. PT THEN CHANGED HIS MIND AND STATED HE WANTED THE MORPHINE AND NOT THE NORCO. RETURNED THE NORCO AND PULLED MORPHINE OUT OF OMNICELL. ADMINISTERED MORPHINE PER MD ORDER.
--- NOTE | 2020-09-29 18:30 | NUR ---
Patient in room ORTHO 4006. I have received report from Shahana PEARSON & Vale RN and had the opportunity to ask questions and assume patient care. 1800 VS not done, pt was in imaging
--- NOTE | 2020-09-29 18:46 | NUR ---
Problems reprioritized. Patient report given, questions answered & plan of care reviewed with Maria D PEARSON.
--- NOTE | 2020-09-29 18:48 | NUR ---
Orientee documentation: I have reviewed and agree with all interventions, assessments performed and documented by Hanna Harkins.
--- NOTE | 2020-09-29 18:49 | NUR ---
Orientee documentation: I have reviewed and agree with all interventions, assessments performed and documented by Hanna Harkins.
[2020-09-29] MEDS: finasteride 5mg tablet PO SCH (20:02)
[2020-09-29] MEDS: traZODone 50mg tablet PO SCH (20:02)
[2020-09-29] MEDS: lactobacillus rhamnosus 10,000 MMU CELLS/CAPSULE PO SCH (20:02)
[2020-09-30] VITALS (7 sets, daily range): BP systolic 100–118; BP diastolic 50–62
[2020-09-30] MEDS: normal saline 1000ml 1,000 ML IV SCH ×2 (04:20→14:20)
--- NOTE | 2020-09-30 06:38 | NUR ---
Problems reprioritized. Patient report given, questions answered & plan of care reviewed with Maritza PEARSON & Robin Student RN.
--- NOTE | 2020-09-30 06:59 | NUR ---
Patient in room ORTHO 4006. I have received report from Andi PEARSON and had the opportunity to ask questions and assume patient care.
[2020-09-30] MEDS: levoTHYROXINE 75mcg tablet PO SCH (07:15)
[2020-09-30] MEDS: duloxetine 30mg CAPSULE.DR PO SCH ×2 (07:56→21:12)
[2020-09-30] MEDS: atorvastatin 10mg tablet PO SCH (07:57)
[2020-09-30] MEDS: lactobacillus rhamnosus 10,000 MMU CELLS/CAPSULE PO SCH ×2 (07:57→21:12)
[2020-09-30] MEDS: piperacillin/tazo 4.5gm/100ml 100 ML IV SCH ×2 (07:57→16:40)
[2020-09-30 08:37] LABS: BASOPHILS % (AUTO) 0.2 % (0-1); EOSINOPHILS % (AUTO) 0.2 % (0-6); HEMATOCRIT 31.5 % (42.0-52.0); HEMOGLOBIN 10.6 g/dl (14.0-17.9); LYMPHOCYTES # (AUTO) 0.2 X10'3 (1.1-4.8); LYMPHOCYTES % (AUTO) 1.2 % (21-51); MEAN CORPUSCULAR HEMOGLOBIN 34.9 PG (27.0-31.0); MEAN CORPUSCULAR HGB CONC 33.7 g/dL (33.0-36.5); MEAN CORPUSCULAR VOLUME 103.7 FL (78-98); MEAN PLATELET VOLUME 9.6 FL (7.4-10.4); MONOCYTES # (AUTO) 0.5 X10'3 (0-0.9); MONOCYTES % (AUTO) 2.7 % (2-12); NEUTROPHILS # (AUTO) 17.9 X10'3 (1.8-7.7); NEUTROPHILS % (AUTO) 95.7 % (42-75); PLATELET COUNT 85 X10'3 (140-440); RED BLOOD COUNT 3.04 X10'6 (4.70-6.10); RED CELL DISTRIBUTION WIDTH 14.7 % (11.5-14.5); WHITE BLOOD COUNT 18.7 X10'3 (4.5-11.0)
[2020-09-30 08:47] LABS: ALBUMIN 1.9 G/DL (3.4-5.0); BLOOD UREA NITROGEN 61 MG/DL (7-18); BUN/CREATININE RATIO 15.1 (5.4-32.0); CALCIUM 6.2 MG/DL (8.5-10.1); CREATININE 4.05 MG/DL (0.60-1.10); GLUCOSE 150 MG/DL (70-104); eGFR 14 ML/MIN
[2020-09-30 08:48] LABS: ANION GAP 15 (8-16); CHLORIDE 91 MMOL/L (99-107); POTASSIUM 5.1 MMOL/L (3.5-5.1); SODIUM 123 MMOL/L (135-145); TOTAL CARBON DIOXIDE 17.3 MMOL/L (24-32)
[2020-09-30 09:37] LABS: ALANINE AMINOTRANSFERASE 555 U/L (12-78); ALBUMIN/GLOBULIN RATIO 0.5 (1.1-1.5); ALKALINE PHOSPHATASE 97 IU/L (46-116); BILIRUBIN,TOTAL 0.8 MG/DL (0.1-1.0); TOTAL PROTEIN 5.7 G/DL (6.4-8.2)
[2020-09-30 09:39] LABS: ASPARTATE AMINO TRANSFERASE 1977 U/L (10-37)
[2020-09-30] MEDS: sodium bicarbonate (8.4%) inj. 50 MEQ in dextrose 5%-water 1,000 ML IV SCH (09:43)
[2020-09-30] MEDS: sodium bicarbonate (8.4%) inj. 150 MEQ in dextrose 5%-water 1,000 ML IV SCH ×2 (10:00→19:54)
[2020-09-30 10:13] LABS: PLATELET ESTIMATE DECREASED; TOTAL CELLS COUNTED 100; TOXIC GRANULATION 1+; TOXIC VACUOLATION FEW
[2020-09-30 10:35] LABS: CREATINE KINASE 73225 U/L (39-308)
[2020-09-30] MEDS: linezolid 600mg/300ml PREMIX 300 ML IV SCH ×2 (11:32→19:54)
--- NOTE | 2020-09-30 12:00 | NUR ---
observed patients urine output of only 75 mls, paged Juan RYAN and apprised him of the situation.
[2020-09-30] MEDS: HYDROcodone/acetaminophen 5mg/325mg tablet PO PRN (13:10)
[2020-09-30 15:07] LABS: CLARITY,URINE TURBID (Clear); COLOR,URINE YELLOW (Yellow); GLUCOSE, URINE NEGATIVE (Neg); KETONES,URINE TRACE mg/dl (Neg); LEUKOCYTE ESTERASE ,URINE SMALL (Neg); NITRITES, URINE NEGATIVE (Neg); OCCULT BLOOD,URINE LARGE (Neg); PH,URINE 6.5 (4.8-8.0); PROTEIN,URINE >=300 mg/dl (Neg)
--- NOTE | 2020-09-30 15:19 | NUR ---
PAGER ID: [phone] MESSAGE: Robin larios [phone] PT William, 4009 clarifying if Bicarb and NS should both be running at 100mls an hour, both ordered in eMAR...OK to D/C NS?
[2020-09-30 15:44] LABS: UA COLLECTION TYPE FOLEY CATH
[2020-09-30 15:48] LABS: MUCUS STRANDS FEW /LPF (Neg); SQUAMOUS EPITHELIAL CELL,UR FEW /LPF (FEW); TRANSITIONAL EPI CELLS,URINE FEW /HPF
[2020-09-30 15:49] LABS: BACTERIA,URINE FEW /HPF (Neg)
[2020-09-30 15:50] LABS: RBC,URINE 20-50 /HPF (0-2)
[2020-09-30 15:51] LABS: AMORPHOUS URATES 3+
[2020-09-30 16:13] LABS: UA EOSINOPHILS NO EOS /HPF
[2020-09-30 16:22] LABS: WBC,URINE 50-100 /HPF (0-4)
--- NOTE | 2020-09-30 18:15 | NUR ---
Patient in room ORTHO 4006. I have received report from MICHEL Salas and had the opportunity to ask questions and assume patient care.
--- NOTE | 2020-09-30 18:32 | NUR ---
patient seen by Dr Huynh, made aware of patients low urinary out put of 75mls. Order given to increase bicarb. Bladder scanned 8mls observed. Patient otherwise appears stable. Report given to Amber PEARSON
[2020-09-30] MEDS: finasteride 5mg tablet PO SCH (21:12)
[2020-09-30] MEDS: traZODone 50mg tablet PO SCH (21:12)
--- NOTE | 2020-09-30 23:00 | NUR ---
Informed Antonio Fernandes RN about need for NIH scale.
[2020-10-01] MEDS: normal saline 1000ml 1,000 ML IV SCH (00:20)
[2020-10-01] MEDS: piperacillin/tazo 4.5gm/100ml 100 ML IV SCH ×2 (00:24→10:49)
[2020-10-01] MEDS: sodium bicarbonate (8.4%) inj. 150 MEQ in dextrose 5%-water 1,000 ML IV SCH ×3 (03:33→19:36)
--- NOTE | 2020-10-01 04:12 | NUR ---
Bladder scan zero
[2020-10-01 06:00] VITALS: BP 107/62
--- NOTE | 2020-10-01 06:38 | NUR ---
Problems reprioritized. Patient report given, questions answered & plan of care reviewed with MICHEL Saldaña.
--- NOTE | 2020-10-01 06:51 | NUR ---
Patient in room ORTHO 4014. I have received report from Amber and had the opportunity to ask questions and assume patient care.
--- NOTE | 2020-10-01 06:53 | NUR ---
Patient in room ORTHO 4014. I have received report from Amber and had the opportunity to ask questions and assume patient care.
[2020-10-01 07:18] LABS: BASOPHILS % (AUTO) 0.1 % (0-1); EOSINOPHILS # (AUTO) 0.1 X10'3 (0-0.9); EOSINOPHILS % (AUTO) 0.6 % (0-6); HEMATOCRIT 29.6 % (42.0-52.0); LYMPHOCYTES # (AUTO) 0.3 X10'3 (1.1-4.8); LYMPHOCYTES % (AUTO) 1.7 % (21-51); MEAN CORPUSCULAR HGB CONC 33.9 g/dL (33.0-36.5); MEAN CORPUSCULAR VOLUME 103.3 FL (78-98); MEAN PLATELET VOLUME 10.1 FL (7.4-10.4); MONOCYTES # (AUTO) 0.4 X10'3 (0-0.9); MONOCYTES % (AUTO) 2.9 % (2-12); NEUTROPHILS # (AUTO) 14.3 X10'3 (1.8-7.7); NEUTROPHILS % (AUTO) 94.7 % (42-75); PLATELET COUNT 73 X10'3 (140-440); RED BLOOD COUNT 2.86 X10'6 (4.70-6.10); RED CELL DISTRIBUTION WIDTH 14.5 % (11.5-14.5); WHITE BLOOD COUNT 15.1 X10'3 (4.5-11.0)
[2020-10-01] MEDS: ondansetron/PF 4mg/2ml inj IV PRN (07:25)
[2020-10-01] MEDS: atorvastatin 10mg tablet PO SCH (07:30)
[2020-10-01] MEDS: levoTHYROXINE 75mcg tablet PO SCH (07:31)
[2020-10-01] MEDS: duloxetine 30mg CAPSULE.DR PO SCH ×2 (07:31→19:36)
[2020-10-01] MEDS: lactobacillus rhamnosus 10,000 MMU CELLS/CAPSULE PO SCH ×2 (07:31→19:36)
[2020-10-01] MEDS: linezolid 600mg/300ml PREMIX 300 ML IV SCH ×2 (07:36→19:35)
[2020-10-01 07:48] LABS: ALANINE AMINOTRANSFERASE 501 U/L (12-78); ALBUMIN 1.8 G/DL (3.4-5.0); ALBUMIN/GLOBULIN RATIO 0.5 (1.1-1.5); ALKALINE PHOSPHATASE 175 IU/L (46-116); ANION GAP 16 (8-16); BILIRUBIN,TOTAL 0.9 MG/DL (0.1-1.0); BLOOD UREA NITROGEN 63 MG/DL (7-18); BUN/CREATININE RATIO 12.7 (5.4-32.0); CHLORIDE 85 MMOL/L (99-107); CREATININE 4.96 MG/DL (0.60-1.10); GLUCOSE 130 MG/DL (70-104); POTASSIUM 4.9 MMOL/L (3.5-5.1); SODIUM 121 MMOL/L (135-145); TOTAL CARBON DIOXIDE 19.8 MMOL/L (24-32); TOTAL PROTEIN 5.5 G/DL (6.4-8.2); eGFR 11 ML/MIN
[2020-10-01 07:53] LABS: ASPARTATE AMINO TRANSFERASE 1459 U/L (10-37)
--- NOTE | 2020-10-01 08:23 | NUR ---
Patient has critical lab Calcium 6.0 this am. Discussed with Dr Martinez on the floor and no action to be taken at this time.
[2020-10-01 08:37] LABS: CREATINE KINASE 39383 U/L (39-308)
[2020-10-01] MEDS: HYDROcodone/acetaminophen 5mg/325mg tablet PO PRN ×3 (09:05→19:36)
[2020-10-01 10:00] VITALS: BP 123/64
[2020-10-01] MEDS ORDERED: levoFLOXACIN-Levaquin 250mg/D5 50 ML IV SCH (14:30)
--- NOTE | 2020-10-01 15:09 | NUR ---
Pt receiving routine Zyvox, will f/u for low tyramine nutrition therapy education. Will continue to follow. Addendum: 10/01/20 at [address] Amended: Links added.
--- NOTE | 2020-10-01 18:32 | NUR ---
Orientee documentation: I have reviewed and agree with all interventions, assessments performed and documented by MICHEL Gonzalez . Orientee Medication Administration: For this medication-pass time frame, all medication were reviewed, dispensed, administered and documented per hospital policy by MICHEL Gonzalez.
--- NOTE | 2020-10-01 18:46 | NUR ---
Problems reprioritized. Patient report given, questions answered & plan of care reviewed with MICHEL Carbajal.
[2020-10-01] MEDS: traZODone 50mg tablet PO SCH (19:36)
[2020-10-01] MEDS: finasteride 5mg tablet PO SCH (19:36)
[2020-10-01 22:00] VITALS: BP 109/60
[2020-10-02] MEDS: sodium bicarbonate (8.4%) inj. 150 MEQ in dextrose 5%-water 1,000 ML IV SCH (02:35)
[2020-10-02 06:00] VITALS: BP 98/66
[2020-10-02 06:25] LABS: BASOPHILS % (AUTO) 0.1 % (0-1); EOSINOPHILS # (AUTO) 0.1 X10'3 (0-0.9); EOSINOPHILS % (AUTO) 1.1 % (0-6); HEMATOCRIT 28.7 % (42.0-52.0); LYMPHOCYTES # (AUTO) 0.3 X10'3 (1.1-4.8); LYMPHOCYTES % (AUTO) 2.3 % (21-51); MEAN CORPUSCULAR HEMOGLOBIN 34.9 PG (27.0-31.0); MEAN CORPUSCULAR HGB CONC 34.8 g/dL (33.0-36.5); MEAN CORPUSCULAR VOLUME 100.4 FL (78-98); MEAN PLATELET VOLUME 10.2 FL (7.4-10.4); MONOCYTES # (AUTO) 0.4 X10'3 (0-0.9); MONOCYTES % (AUTO) 3.4 % (2-12); NEUTROPHILS # (AUTO) 10.5 X10'3 (1.8-7.7); NEUTROPHILS % (AUTO) 93.1 % (42-75); PLATELET COUNT 79 X10'3 (140-440); RED BLOOD COUNT 2.85 X10'6 (4.70-6.10); RED CELL DISTRIBUTION WIDTH 14.5 % (11.5-14.5); WHITE BLOOD COUNT 11.3 X10'3 (4.5-11.0)
--- NOTE | 2020-10-02 06:40 | NUR ---
Patient in room ORTHO 4014. I have received report from Solomon PEARSON and had the opportunity to ask questions and assume patient care.
[2020-10-02] MEDS: HYDROcodone/acetaminophen 5mg/325mg tablet PO PRN ×3 (06:53→21:46)
[2020-10-02 06:56] LABS: ALANINE AMINOTRANSFERASE 458 U/L (12-78); ALBUMIN 1.7 G/DL (3.4-5.0); ALBUMIN/GLOBULIN RATIO 0.5 (1.1-1.5); ALKALINE PHOSPHATASE 183 IU/L (46-116); ANION GAP 12 (8-16); BILIRUBIN,TOTAL 0.8 MG/DL (0.1-1.0); BLOOD UREA NITROGEN 68 MG/DL (7-18); BUN/CREATININE RATIO 11.7 (5.4-32.0); CHLORIDE 81 MMOL/L (99-107); CREATININE 5.82 MG/DL (0.60-1.10); GLUCOSE 119 MG/DL (70-104); POTASSIUM 4.5 MMOL/L (3.5-5.1); TOTAL CARBON DIOXIDE 26.9 MMOL/L (24-32); TOTAL PROTEIN 5.3 G/DL (6.4-8.2); eGFR 9 ML/MIN
[2020-10-02 07:05] LABS: ASPARTATE AMINO TRANSFERASE 1212 U/L (10-37)
[2020-10-02 07:11] LABS: CREATINE KINASE 28939 U/L (39-308)
[2020-10-02 07:13] LABS: CALCIUM 5.8 MG/DL (8.5-10.1); SODIUM 120 MMOL/L (135-145)
--- NOTE | 2020-10-02 07:23 | NUR ---
PAGER ID: [phone] MESSAGE: Brad Suggs [phone] [id number] William Marion. Patient labs came back with Na 120 and Calcium 5.8 thanks
[2020-10-02] MEDS: duloxetine 30mg CAPSULE.DR PO SCH ×2 (07:39→20:52)
[2020-10-02] MEDS: lactobacillus rhamnosus 10,000 MMU CELLS/CAPSULE PO SCH ×2 (07:39→20:52)
[2020-10-02] MEDS: levoTHYROXINE 75mcg tablet PO SCH (07:40)
[2020-10-02] MEDS: atorvastatin 10mg tablet PO SCH (07:41)
[2020-10-02] MEDS: linezolid 600mg/300ml PREMIX 300 ML IV SCH (07:46)
[2020-10-02] MEDS ORDERED: calcium chloride inj. 1,000 MG in normal saline 100ml IV soln 100 ML IV ONE (08:30)
[2020-10-02] MEDS: morphine 2 MG/ML inj. syringe IV PRN ×2 (09:01→22:20)
[2020-10-02] MEDS ORDERED: furosemide 40mg/4ml inj IV ONE (09:15)
[2020-10-02 10:00] VITALS: BP 112/59
[2020-10-02] MEDS: TOLVAPTAN 30 MG TABLET PO SCH (11:02)
--- NOTE | 2020-10-02 15:21 | NUR ---
Initial: Pt admit for possible CVA, which has now been ruled out. Pt with rhabdomyolysis, TRACIE, hyponatremia, transaminitis, and sepsis secondary to UTI per MD note. MD notified by RN of low serum Na per RN notes. Electrical Assistant following. Pt s/p BSS with ST recs minced and moist food with thin liquids. Pt with fluctuating PO intake, documented with 50% and 100% PO intake with meal refusals, down to 0% PO intake x 2 meals today. Pt seen at bedside for written and verbal low tyramine nutrition therapy education, though noted that pt now no longer receiving Zyvox. Pt reports a low appetite since admit and denies any food preferences at this time. RD encouraged PO intake. Pt denies food allergies. Pt with c/o constipation with LBM 09/28, currently not receiving any bowel care. Pt agrees to prune juice with next meal, d/w dietary. Pt provided with RD contact information and encouraged to reach out for food preferences. Constipation likely impacting appetite and PO intake. RD d/w RN regarding recommendation for bowel care and mag/phos lab draws with MD approval since no mag/phos lab draws since admit. Will continue to follow closely and make recommendations as appropriate. Recommendations: 1) Continue MM5 diet with thin liquids per ST recs 2) Encourage PO intake; monitor need for ONS 3) Monitor renal labs 4) Routine bowel care 5) Scaled weights per rx Addendum: 10/02/20 at [address] Amended: Links added.
[2020-10-02 18:00] VITALS: BP 130/67
--- NOTE | 2020-10-02 18:00 | NUR ---
Patient in room ORTHO 4014. I have received report from MICHEL Salinas and had the opportunity to ask questions and assume patient care.
--- NOTE | 2020-10-02 18:30 | NUR ---
Patient in room ORTHO 4014. I have received report from MICHEL Salinas and had the opportunity to ask questions and assume patient care.
[2020-10-02] MEDS: ondansetron/PF 4mg/2ml inj IV PRN (18:53)
--- NOTE | 2020-10-02 19:07 | NUR ---
Problems reprioritized. Patient report given, questions answered & plan of care reviewed with Litzy PEARSON.
[2020-10-02] MEDS: traZODone 50mg tablet PO SCH (20:52)
[2020-10-02] MEDS: furosemide 40mg/4ml inj IV SCH (21:34)
[2020-10-02] MEDS: finasteride 5mg tablet PO SCH (21:40)
[2020-10-02 22:00] VITALS: BP 110/45
[2020-10-02] MEDS: heparin, porcine 5000 units/ml vial SQ SCH (23:40)
[2020-10-03 03:53] LABS: BASOPHILS % (AUTO) 0.1 % (0-1); EOSINOPHILS # (AUTO) 0.1 X10'3 (0-0.9); EOSINOPHILS % (AUTO) 0.5 % (0-6); HEMATOCRIT 27.7 % (42.0-52.0); HEMOGLOBIN 9.6 g/dl (14.0-17.9); LYMPHOCYTES # (AUTO) 0.2 X10'3 (1.1-4.8); LYMPHOCYTES % (AUTO) 1.8 % (21-51); MEAN CORPUSCULAR HGB CONC 34.4 g/dL (33.0-36.5); MEAN CORPUSCULAR VOLUME 101.7 FL (78-98); MEAN PLATELET VOLUME 9.7 FL (7.4-10.4); MONOCYTES # (AUTO) 0.1 X10'3 (0-0.9); MONOCYTES % (AUTO) 0.5 % (2-12); NEUTROPHILS # (AUTO) 10.2 X10'3 (1.8-7.7); NEUTROPHILS % (AUTO) 97.1 % (42-75); PLATELET COUNT 72 X10'3 (140-440); RED BLOOD COUNT 2.73 X10'6 (4.70-6.10); RED CELL DISTRIBUTION WIDTH 14.3 % (11.5-14.5); WHITE BLOOD COUNT 10.5 X10'3 (4.5-11.0)
[2020-10-03 04:51] LABS: ALANINE AMINOTRANSFERASE 345 U/L (12-78); ALBUMIN 1.3 G/DL (3.4-5.0); ALBUMIN/GLOBULIN RATIO 0.5 (1.1-1.5); ALKALINE PHOSPHATASE 151 IU/L (46-116); ANION GAP 14 (8-16); ASPARTATE AMINO TRANSFERASE 779 U/L (10-37); BILIRUBIN,TOTAL 0.7 MG/DL (0.1-1.0); BLOOD UREA NITROGEN 58 MG/DL (7-18); BUN/CREATININE RATIO 11.4 (5.4-32.0); CHLORIDE 94 MMOL/L (99-107); CREATININE 5.07 MG/DL (0.60-1.10); GLUCOSE 71 MG/DL (70-104); POTASSIUM 3.8 MMOL/L (3.5-5.1); SODIUM 130 MMOL/L (135-145); TOTAL CARBON DIOXIDE 22.5 MMOL/L (24-32); TOTAL PROTEIN 4.1 G/DL (6.4-8.2); eGFR 11 ML/MIN
[2020-10-03 05:04] LABS: CALCIUM < 5.0 MG/DL (8.5-10.1)
[2020-10-03 05:20] LABS: PLATELET ESTIMATE DECREASED; TOTAL CELLS COUNTED 100
[2020-10-03] MEDS ORDERED: calcium chloride inj. 1,000 MG in normal saline 100ml IV soln 100 ML IV ONE (05:25)
[2020-10-03] MEDS ORDERED: calcium chloride inj. 1,000 MG in normal saline 100ml IV soln 90 ML IV ONE (05:30)
[2020-10-03 05:33] LABS: CREATINE KINASE 16115 U/L (39-308)
[2020-10-03] MEDS: morphine 2 MG/ML inj. syringe IV PRN ×3 (05:42→15:16)
[2020-10-03 05:54] VITALS: BP 119/56
[2020-10-03 06:00] VITALS: BP 98/48
--- NOTE | 2020-10-03 06:00 | NUR ---
Problems reprioritized. Patient report given, questions answered & plan of care reviewed with MICHEL Salinas.
--- NOTE | 2020-10-03 06:30 | NUR ---
Patient in room ORTHO 4014. I have received report from Dena PEARSON and had the opportunity to ask questions and assume patient care.
[2020-10-03] MEDS: levoFLOXACIN-Levaquin 250mg/D5 50 ML IV SCH (08:34)
[2020-10-03] MEDS: levoTHYROXINE 75mcg tablet PO SCH (08:37)
[2020-10-03] MEDS: duloxetine 30mg CAPSULE.DR PO SCH ×2 (08:37→20:38)
[2020-10-03] MEDS: lactobacillus rhamnosus 10,000 MMU CELLS/CAPSULE PO SCH ×2 (08:37→20:38)
[2020-10-03] MEDS: atorvastatin 10mg tablet PO SCH (08:38)
[2020-10-03] MEDS: TOLVAPTAN 30 MG TABLET PO SCH (08:39)
[2020-10-03] MEDS: heparin, porcine 5000 units/ml vial SQ SCH (08:40)
[2020-10-03] MEDS: furosemide 40mg/4ml inj IV SCH ×2 (08:40→20:51)
[2020-10-03 10:00] VITALS: BP 122/47
--- NOTE | 2020-10-03 10:51 | NUR ---
Brad Suggs 4014b William, Brandin patient had another draw of the Na and it was 119 again. Critical result Thanks Brad.
[2020-10-03 12:14] LABS: HBSAG SCREEN Negative (Negative); HEP B CORE AB, TOT Negative (Negative)
--- NOTE | 2020-10-03 15:48 | NUR ---
CRITICAL SODIUM 120, DR GARTH AWAITING CALL BACK
[2020-10-03 18:00] VITALS: BP 123/54
--- NOTE | 2020-10-03 18:04 | NUR ---
Dressing changed with wound care photo taken.
--- NOTE | 2020-10-03 18:48 | NUR ---
Problems reprioritized. Patient report given, questions answered & plan of care reviewed with SYLVIE PEARSON.
[2020-10-03 20:30] VITALS: BP 103/54
[2020-10-03] MEDS: traZODone 50mg tablet PO SCH (20:38)
[2020-10-03 22:00] VITALS: BP 107/47
--- NOTE | 2020-10-03 22:06 | NUR ---
MD Thayer notified of Critical Lab result received for NA of 120. No new orders at this time.
[2020-10-03] MEDS: finasteride 5mg tablet PO SCH (22:53)
[2020-10-04] MEDS: morphine 2 MG/ML inj. syringe IV PRN ×4 (01:12→20:30)
[2020-10-04 06:46] LABS: SODIUM 122 MMOL/L (135-145)
[2020-10-04 07:09] VITALS: BP 145/52
[2020-10-04] MEDS: levoTHYROXINE 75mcg tablet PO SCH (07:43)
[2020-10-04] MEDS: furosemide 40mg/4ml inj IV SCH ×2 (07:43→20:18)
[2020-10-04] MEDS: duloxetine 30mg CAPSULE.DR PO SCH ×2 (07:43→20:18)
[2020-10-04] MEDS: lactobacillus rhamnosus 10,000 MMU CELLS/CAPSULE PO SCH ×2 (07:43→20:18)
[2020-10-04] MEDS: atorvastatin 10mg tablet PO SCH (07:43)
[2020-10-04] MEDS: levoFLOXACIN-Levaquin 250mg/D5 50 ML IV SCH (07:44)
[2020-10-04] MEDS: TOLVAPTAN 30 MG TABLET PO SCH (07:44)
[2020-10-04 08:01] LABS: ALBUMIN 1.7 G/DL (3.4-5.0); BLOOD UREA NITROGEN 87 MG/DL (7-18); CALCIUM 6.3 MG/DL (8.5-10.1); CREATININE 7.92 MG/DL (0.60-1.10); GLUCOSE 73 MG/DL (70-104); TOTAL CARBON DIOXIDE 20.8 MMOL/L (24-32); eGFR 7 ML/MIN
[2020-10-04 08:07] LABS: CREATINE KINASE 17504 U/L (39-308)
[2020-10-04 08:10] LABS: ANION GAP 20 (8-16); CHLORIDE 80 MMOL/L (99-107); POTASSIUM 5.2 MMOL/L (3.5-5.1)
[2020-10-04 10:00] VITALS: BP 122/56
[2020-10-04] MEDS ORDERED: heparin 1,000unit/ml 10ml vial 10 ML IV ONE (10:15)
[2020-10-04] MEDS ORDERED: epoetin 20,000 units/ml inj IV ONE (10:15)
[2020-10-04] MEDS ORDERED: heparin 1,000 units/ml 10ml inj HE ONE ×2 (10:15)
[2020-10-04] MEDS ORDERED: LIDOcaine 1%/PF 5ML 10 MG/ML VIAL ONE (11:29)
[2020-10-04] MEDS ORDERED: fentaNYL/PF 50MCG/1 ML 2ML syringe ONE ×2 (11:43→12:01)
[2020-10-04] MEDS ORDERED: heparin 1,000unit/ml 10ml vial 10 ML ONE (11:50)
[2020-10-04 18:00] VITALS: BP 137/68
[2020-10-04] MEDS: finasteride 5mg tablet PO SCH (20:18)
[2020-10-04] MEDS: traZODone 50mg tablet PO SCH (20:18)
[2020-10-04 22:00] VITALS: BP 114/58
--- NOTE | 2020-10-05 06:46 | NUR ---
Patient in room ORTHO 4014. I have received report from MICHEL Stein and had the opportunity to ask questions and assume patient care.
[2020-10-05 06:49] VITALS: BP 131/56
[2020-10-05 07:09] LABS: CREATINE KINASE 14728 U/L (39-308)
[2020-10-05] MEDS: duloxetine 30mg CAPSULE.DR PO SCH ×2 (07:20→21:20)
[2020-10-05] MEDS: atorvastatin 10mg tablet PO SCH (07:20)
[2020-10-05] MEDS: levoFLOXACIN-Levaquin 250mg/D5 50 ML IV SCH (07:20)
[2020-10-05] MEDS: TOLVAPTAN 30 MG TABLET PO SCH (07:20)
[2020-10-05] MEDS: lactobacillus rhamnosus 10,000 MMU CELLS/CAPSULE PO SCH ×2 (07:20→21:20)
[2020-10-05] MEDS: levoTHYROXINE 75mcg tablet PO SCH (07:20)
[2020-10-05] MEDS: furosemide 40mg/4ml inj IV SCH ×2 (07:20→21:19)
[2020-10-05] MEDS: HYDROcodone/acetaminophen 5mg/325mg tablet PO PRN (07:26)
[2020-10-05 07:32] LABS: ALBUMIN 1.8 G/DL (3.4-5.0); ANION GAP 19 (8-16); BLOOD UREA NITROGEN 85 MG/DL (7-18); BUN/CREATININE RATIO 10.7 (5.4-32.0); CALCIUM 6.9 MG/DL (8.5-10.1); CHLORIDE 88 MMOL/L (99-107); CREATININE 7.94 MG/DL (0.60-1.10); GLUCOSE 94 MG/DL (70-104); POTASSIUM 4.5 MMOL/L (3.5-5.1); SODIUM 127 MMOL/L (135-145); TOTAL CARBON DIOXIDE 19.7 MMOL/L (24-32); eGFR 7 ML/MIN
[2020-10-05] MEDS ORDERED: epoetin 20,000 units/ml inj IV ONE (08:00)
[2020-10-05] MEDS ORDERED: heparin 1,000unit/ml 10ml vial 10 ML IV ONE (08:00)
[2020-10-05] MEDS ORDERED: heparin 1,000 units/ml 10ml inj HE ONE ×2 (08:00)
[2020-10-05] MEDS ORDERED: normal saline 1000ml 250 ML IV PRN (08:00)
[2020-10-05] MEDS: morphine 2 MG/ML inj. syringe IV PRN ×2 (09:33→21:22)
[2020-10-05 10:56] VITALS: BP 110/48
[2020-10-05 12:07] LABS: BASOPHILS % (AUTO) 0.1 % (0-1); EOSINOPHILS % (AUTO) 0.1 % (0-6); HEMATOCRIT 29.1 % (42.0-52.0); LYMPHOCYTES # (AUTO) 0.2 X10'3 (1.1-4.8); LYMPHOCYTES % (AUTO) 1.4 % (21-51); MEAN CORPUSCULAR HEMOGLOBIN 34.9 PG (27.0-31.0); MEAN CORPUSCULAR HGB CONC 34.2 g/dL (33.0-36.5); MEAN PLATELET VOLUME 9.5 FL (7.4-10.4); MONOCYTES # (AUTO) 0.3 X10'3 (0-0.9); MONOCYTES % (AUTO) 2.5 % (2-12); NEUTROPHILS # (AUTO) 11.4 X10'3 (1.8-7.7); NEUTROPHILS % (AUTO) 95.9 % (42-75); PLATELET COUNT 121 X10'3 (140-440); RED BLOOD COUNT 2.86 X10'6 (4.70-6.10); RED CELL DISTRIBUTION WIDTH 14.7 % (11.5-14.5); WHITE BLOOD COUNT 11.9 X10'3 (4.5-11.0)
[2020-10-05] MEDS ORDERED: EPOETIN ALFA-EPBX 20,000 UNIT/ML 1 ML MDV IV ONE (12:50)
[2020-10-05 13:00] LABS: HBSAG SCREEN Negative (Negative)
--- NOTE | 2020-10-05 14:26 | NUR ---
multiple launch rocket system crewmember at bedside.
--- NOTE | 2020-10-05 16:24 | NUR ---
Consult re:"new renal". Pt s/p TDC placement and started on dialysis. Pt to get dialysis tomorrow or the next day if necessary and rhabdomyolysis improving per MD note. Pt with hyponatremia, serum K WNL, and unknown Phos, renal education not appropriate at this time. Pt average PO intake is 0-25% on MM5/dry try, not meeting estimated nutrient needs. Pt on dialysis when RD training intern met with patient at bedside for food preferences. Encouraged pt to focus on protein to meet demands of dialysis. Pt denied Nepro but agreeable to cottage cheese, d/w dietary. Last BM 10/05. Will continue to monitor closely. Recommendations: 1) Continue MM5 diet with thin liquids per ST recs; dry tray per diet order 2) Encourage PO intake; honor pt food preferences; monitor for ONS acceptance, pt declined at this time 3) Monitor renal labs 4) Routine bowel care 5) Scaled weights per rx Addendum: 10/05/20 at [address] Amended: Links added. Addendum: 10/05/20 at [address] I have reviewed and agree with note by Micrographics Services Supervisor. Rosanna Iqbal RD
[2020-10-05 18:05] VITALS: BP 119/60
[2020-10-05] MEDS: ondansetron/PF 4mg/2ml inj IV PRN (18:11)
--- NOTE | 2020-10-05 18:49 | NUR ---
Problems reprioritized. Patient report given, questions answered & plan of care reviewed with MICHEL Ding.
[2020-10-05] MEDS: traZODone 50mg tablet PO SCH (21:20)
[2020-10-05] MEDS: finasteride 5mg tablet PO SCH (21:21)
[2020-10-05 22:00] VITALS: BP 134/62
[2020-10-06 06:06] VITALS: BP 106/51
--- NOTE | 2020-10-06 06:38 | NUR ---
Problems reprioritized. Patient report given, questions answered & plan of care reviewed with Tee PEARSON
[2020-10-06] MEDS: levoTHYROXINE 75mcg tablet PO SCH (07:14)
[2020-10-06 07:58] LABS: CREATINE KINASE 17651 U/L (39-308)
[2020-10-06] MEDS ORDERED: heparin 1,000unit/ml 10ml vial 10 ML IV ONE (08:00)
[2020-10-06] MEDS ORDERED: EPOETIN ALFA-EPBX 20,000 UNIT/ML 1 ML MDV IV ONE (08:00)
[2020-10-06] MEDS: furosemide 40mg/4ml inj IV SCH ×2 (08:00→20:18)
[2020-10-06] MEDS ORDERED: heparin 1,000 units/ml 10ml inj HE ONE ×2 (08:00)
[2020-10-06] MEDS: atorvastatin 20mg tablet PO SCH (08:28)
[2020-10-06] MEDS: lactobacillus rhamnosus 10,000 MMU CELLS/CAPSULE PO SCH ×2 (08:28→20:18)
[2020-10-06] MEDS: duloxetine 30mg CAPSULE.DR PO SCH ×2 (08:28→20:18)
[2020-10-06] MEDS: HYDROcodone/acetaminophen 5mg/325mg tablet PO PRN ×3 (09:15→17:18)
[2020-10-06 10:10] VITALS: BP 130/57
[2020-10-06 10:20] VITALS: BP 119/50
[2020-10-06 12:22] LABS: ALANINE AMINOTRANSFERASE 306 U/L (12-78); ALBUMIN 1.7 G/DL (3.4-5.0); ALBUMIN/GLOBULIN RATIO 0.5 (1.1-1.5); ALKALINE PHOSPHATASE 229 IU/L (46-116); ANION GAP 15 (8-16); ASPARTATE AMINO TRANSFERASE 492 U/L (10-37); BILIRUBIN,TOTAL 0.5 MG/DL (0.1-1.0); BLOOD UREA NITROGEN 67 MG/DL (7-18); BUN/CREATININE RATIO 9.6 (5.4-32.0); CALCIUM 7.2 MG/DL (8.5-10.1); CHLORIDE 97 MMOL/L (99-107); CREATININE 6.98 MG/DL (0.60-1.10); GLUCOSE 129 MG/DL (70-104); PHOSPHORUS 6.3 MG/DL (2.3-4.5); SODIUM 136 MMOL/L (135-145); TOTAL CARBON DIOXIDE 24.1 MMOL/L (24-32); TOTAL PROTEIN 5.1 G/DL (6.4-8.2); eGFR 8 ML/MIN
[2020-10-06 18:00] VITALS: BP 130/59
[2020-10-06] MEDS: traZODone 50mg tablet PO SCH (20:18)
[2020-10-06] MEDS: finasteride 5mg tablet PO SCH (20:21)
[2020-10-06 22:00] VITALS: BP 119/56
[2020-10-06] MEDS: morphine 2 MG/ML inj. syringe IV PRN (23:58)
--- NOTE | 2020-10-07 01:28 | NUR ---
Page Sent-PAGER ID: [phone] [facility] #[id number]-Doni Thomas-new cough, pink sputum, on 2L 97% #[phone] Toña
[2020-10-07 06:00] VITALS: BP 128/59
[2020-10-07 06:26] LABS: BASOPHILS % (AUTO) 0.2 % (0-1); EOSINOPHILS # (AUTO) 0.1 X10'3 (0-0.9); EOSINOPHILS % (AUTO) 0.4 % (0-6); HEMATOCRIT 30.5 % (42.0-52.0); HEMOGLOBIN 10.2 g/dl (14.0-17.9); LYMPHOCYTES # (AUTO) 0.4 X10'3 (1.1-4.8); LYMPHOCYTES % (AUTO) 2.3 % (21-51); MEAN CORPUSCULAR HEMOGLOBIN 34.3 PG (27.0-31.0); MEAN CORPUSCULAR HGB CONC 33.6 g/dL (33.0-36.5); MEAN CORPUSCULAR VOLUME 102.2 FL (78-98); MEAN PLATELET VOLUME 8.9 FL (7.4-10.4); MONOCYTES # (AUTO) 0.7 X10'3 (0-0.9); MONOCYTES % (AUTO) 4.6 % (2-12); NEUTROPHILS % (AUTO) 92.5 % (42-75); PLATELET COUNT 170 X10'3 (140-440); RED BLOOD COUNT 2.98 X10'6 (4.70-6.10); RED CELL DISTRIBUTION WIDTH 14.5 % (11.5-14.5); WHITE BLOOD COUNT 16.2 X10'3 (4.5-11.0)
[2020-10-07 06:47] LABS: ALANINE AMINOTRANSFERASE 320 U/L (12-78); ALBUMIN 1.9 G/DL (3.4-5.0); ALBUMIN/GLOBULIN RATIO 0.5 (1.1-1.5); ALKALINE PHOSPHATASE 224 IU/L (46-116); ANION GAP 12 (8-16); ASPARTATE AMINO TRANSFERASE 546 U/L (10-37); BILIRUBIN,TOTAL 0.8 MG/DL (0.1-1.0); BLOOD UREA NITROGEN 50 MG/DL (7-18); BUN/CREATININE RATIO 8.4 (5.4-32.0); CALCIUM 8.5 MG/DL (8.5-10.1); CHLORIDE 99 MMOL/L (99-107); CREATININE 5.98 MG/DL (0.60-1.10); GLUCOSE 111 MG/DL (70-104); PHOSPHORUS 5.1 MG/DL (2.3-4.5); SODIUM 137 MMOL/L (135-145); TOTAL CARBON DIOXIDE 26.1 MMOL/L (24-32); TOTAL PROTEIN 5.4 G/DL (6.4-8.2); eGFR 9 ML/MIN
[2020-10-07 07:14] LABS: CREATINE KINASE 7498 U/L (39-308)
[2020-10-07 09:41] LABS: LARGE PLATELETS FEW; PLATELET ESTIMATE NORMAL
[2020-10-07] MEDS: levoTHYROXINE 75mcg tablet PO SCH (09:47)
[2020-10-07] MEDS: duloxetine 30mg CAPSULE.DR PO SCH ×2 (09:48→21:15)
[2020-10-07] MEDS: atorvastatin 20mg tablet PO SCH (09:48)
[2020-10-07] MEDS: lactobacillus rhamnosus 10,000 MMU CELLS/CAPSULE PO SCH ×2 (09:48→21:15)
[2020-10-07 10:00] VITALS: BP 129/61
[2020-10-07] MEDS: furosemide 40mg/4ml inj IV SCH ×2 (10:12→20:00)
[2020-10-07] MEDS: levoFLOXACIN 250mg tablet PO SCH (11:51)
--- NOTE | 2020-10-07 12:24 | NUR ---
Report given to MICHEL Du with opportunity to ask questions. Patient report exchanged with Kim FINNEGAN Student and instructor Radha. Addendum: 10/07/20 at [address]26 [address]UDENT [address] Amended: Links added.
--- NOTE | 2020-10-07 16:34 | NUR ---
Renae care provided, and dennis care cleansed, and dry flows replaced. Addendum: 10/07/20 at 1636 by Kim GALAN Amended: Links added.
--- NOTE | 2020-10-07 18:29 | NUR ---
Student documentation: I have reviewed and agree with all interventions, assessments performed and documented by Kim- student services counselor. Report given to Ana Laura PEARSON. Addendum: 10/07/20 at 1829 by Kim Roach [address]UDENT [facility] Amended: Links added.
--- NOTE | 2020-10-07 18:30 | NUR ---
Patient in room ORTHO 4014. I have received report from Jay PEARSON and had the opportunity to ask questions and assume patient care. Addendum: 10/07/20 at 1831 by Nancy Davies RN Entered under wrong patient.
--- NOTE | 2020-10-07 18:35 | NUR ---
Patient in room ORTHO 4014. I have received report from ELVIA PEARSON and had the opportunity to ask questions and assume patient care.
[2020-10-07 19:00] VITALS: BP 155/56
[2020-10-07] MEDS: finasteride 5mg tablet PO SCH (21:15)
[2020-10-07] MEDS: traZODone 50mg tablet PO SCH (21:15)
[2020-10-08] VITALS: BP 134/56
[2020-10-08] MEDS: furosemide 40mg/4ml inj IV SCH ×3 (00:26→21:38)
[2020-10-08 06:00] VITALS: BP 118/54
--- NOTE | 2020-10-08 06:13 | NUR ---
Problems reprioritized. Patient report given, questions answered & plan of care reviewed with ELVIA PEARSON.
[2020-10-08] MEDS ORDERED: heparin 1,000 units/ml 10ml inj HE ONE ×2 (08:00)
[2020-10-08] MEDS ORDERED: heparin 1,000unit/ml 10ml vial 10 ML IV ONE (08:00)
[2020-10-08] MEDS ORDERED: normal saline 1000ml 250 ML IV PRN (08:00)
[2020-10-08] MEDS ORDERED: EPOETIN ALFA-EPBX 20,000 UNIT/ML 1 ML MDV IV ONE (08:00)
[2020-10-08] MEDS: duloxetine 30mg CAPSULE.DR PO SCH ×2 (08:33→21:31)
[2020-10-08] MEDS: lactobacillus rhamnosus 10,000 MMU CELLS/CAPSULE PO SCH ×2 (08:33→21:34)
[2020-10-08] MEDS: levoTHYROXINE 75mcg tablet PO SCH (08:33)
[2020-10-08] MEDS: atorvastatin 20mg tablet PO SCH (08:33)
[2020-10-08] MEDS: HYDROcodone/acetaminophen 5mg/325mg tablet PO PRN (08:34)
[2020-10-08 10:00] VITALS: BP 105/51
[2020-10-08 15:24] LABS: BASOPHILS % (AUTO) 0.2 % (0-1); EOSINOPHILS # (AUTO) 0.1 X10'3 (0-0.9); EOSINOPHILS % (AUTO) 0.4 % (0-6); HEMATOCRIT 29.1 % (42.0-52.0); HEMOGLOBIN 9.5 g/dl (14.0-17.9); LYMPHOCYTES # (AUTO) 0.3 X10'3 (1.1-4.8); MEAN CORPUSCULAR HGB CONC 32.8 g/dL (33.0-36.5); MEAN CORPUSCULAR VOLUME 103.5 FL (78-98); MEAN PLATELET VOLUME 9.6 FL (7.4-10.4); MONOCYTES % (AUTO) 6.3 % (2-12); NEUTROPHILS # (AUTO) 14.9 X10'3 (1.8-7.7); NEUTROPHILS % (AUTO) 91.1 % (42-75); PLATELET COUNT 198 X10'3 (140-440); RED BLOOD COUNT 2.81 X10'6 (4.70-6.10); RED CELL DISTRIBUTION WIDTH 14.7 % (11.5-14.5); WHITE BLOOD COUNT 16.4 X10'3 (4.5-11.0)
[2020-10-08 15:33] LABS: ALANINE AMINOTRANSFERASE 253 U/L (12-78); ALBUMIN 1.9 G/DL (3.4-5.0); ALBUMIN/GLOBULIN RATIO 0.6 (1.1-1.5); ALKALINE PHOSPHATASE 159 IU/L (46-116); ANION GAP 13 (8-16); ASPARTATE AMINO TRANSFERASE 385 U/L (10-37); BILIRUBIN,TOTAL 0.8 MG/DL (0.1-1.0); BLOOD UREA NITROGEN 66 MG/DL (7-18); BUN/CREATININE RATIO 9.2 (5.4-32.0); CALCIUM 8.3 MG/DL (8.5-10.1); CHLORIDE 99 MMOL/L (99-107); CREATININE 7.16 MG/DL (0.60-1.10); GLUCOSE 100 MG/DL (70-104); MAGNESIUM 1.9 MG/DL (1.5-2.4); PHOSPHORUS 5.2 MG/DL (2.3-4.5); POTASSIUM 3.5 MMOL/L (3.5-5.1); SODIUM 138 MMOL/L (135-145); TOTAL CARBON DIOXIDE 25.8 MMOL/L (24-32); TOTAL PROTEIN 5.2 G/DL (6.4-8.2); eGFR 7 ML/MIN
--- NOTE | 2020-10-08 16:15 | NUR ---
Reassessment: Pt PO intake 0-25% with 75% intake of carbohydrate this lunch on MM5/thin dry tray. Pt is not meeting estimated nutrient needs. RD civil engineering intern unable to visit pt to obtain food preferences given AOx1 and confused. Pt documented with a sitter at bedside and receiving assistance with meals. Recommend Nepro TIDWM to optimize PO intake, pending MD approval in EMR. May benefit from enteral nutrition given prolonged poor PO intake for 10 days. Last BM 10/08. Noted Phos 5.2H, may benefit from a phosphate binder with MD approval. Will continue to monitor closely. Recommendations: 1) Continue MM5 diet with thin liquids per ST recs; dry tray per diet order 2) Encourage PO intake; recommend Nepro TIDWM pending MD approval in EMR 3) Monitor renal labs, Phosphate binder if MD agreeable 4) Routine bowel care 5) Scaled weights per rx 6) Consider nutrition support given prolonged poor PO intake Addendum: 10/08/20 at [address] Amended: Links added. Addendum: 10/08/20 at [address] I have reviewed and agree with note by Big Data Analytics Lead. Rosanna Iqbal RD
[2020-10-08 16:17] LABS: HYPERSEGMENTED NEUTROPHILS FEW; PLATELET ESTIMATE NORMAL; POLYCHROMASIA 1+; TOTAL CELLS COUNTED 100
[2020-10-08 16:35] LABS: CREATINE KINASE 3635 U/L (39-308)
[2020-10-08 18:00] VITALS: BP 131/52
[2020-10-08] MEDS: finasteride 5mg tablet PO SCH (21:34)
[2020-10-08] MEDS: traZODone 50mg tablet PO SCH (21:34)
[2020-10-09 03:56] LABS: CLARITY,URINE SLIGHTLY CLOUDY (Clear); COLOR,URINE YELLOW (Yellow); GLUCOSE, URINE NEGATIVE (Neg); KETONES,URINE NEGATIVE (Neg); LEUKOCYTE ESTERASE ,URINE NEGATIVE (Neg); NITRITES, URINE NEGATIVE (Neg); OCCULT BLOOD,URINE LARGE (Neg); PH,URINE 5.5 (4.8-8.0); PROTEIN,URINE 100 mg/dl (Neg); UROBILINOGEN,URINE 0.2 E.U/dL (0.2-1.0)
[2020-10-09 04:02] LABS: UA COLLECTION TYPE FOLEY CATH
[2020-10-09 04:03] LABS: WBC,URINE 0-4 /HPF (0-4)
[2020-10-09 04:04] LABS: BACTERIA,URINE FEW /HPF (Neg); RENAL CELLS, URINE FEW /HPF; SQUAMOUS EPITHELIAL CELL,UR MODERATE /LPF (FEW)
[2020-10-09 04:05] LABS: AMORPHOUS URATES 1+
[2020-10-09 06:00] VITALS: BP 141/55
--- NOTE | 2020-10-09 06:34 | NUR ---
Problems reprioritized. Patient report given, questions answered & plan of care reviewed with ELVIA PEARSON.
[2020-10-09 07:06] LABS: BASOPHILS % (AUTO) 0.2 % (0-1); EOSINOPHILS # (AUTO) 0.1 X10'3 (0-0.9); EOSINOPHILS % (AUTO) 0.4 % (0-6); HEMATOCRIT 29.2 % (42.0-52.0); HEMOGLOBIN 9.7 g/dl (14.0-17.9); LYMPHOCYTES # (AUTO) 0.3 X10'3 (1.1-4.8); LYMPHOCYTES % (AUTO) 2.4 % (21-51); MEAN CORPUSCULAR HEMOGLOBIN 34.5 PG (27.0-31.0); MEAN CORPUSCULAR HGB CONC 33.3 g/dL (33.0-36.5); MEAN CORPUSCULAR VOLUME 103.5 FL (78-98); MEAN PLATELET VOLUME 9.3 FL (7.4-10.4); MONOCYTES # (AUTO) 1.4 X10'3 (0-0.9); MONOCYTES % (AUTO) 9.8 % (2-12); NEUTROPHILS # (AUTO) 12.1 X10'3 (1.8-7.7); NEUTROPHILS % (AUTO) 87.2 % (42-75); PLATELET COUNT 228 X10'3 (140-440); RED BLOOD COUNT 2.82 X10'6 (4.70-6.10); RED CELL DISTRIBUTION WIDTH 14.7 % (11.5-14.5); WHITE BLOOD COUNT 13.9 X10'3 (4.5-11.0)
[2020-10-09 07:36] LABS: ALBUMIN 1.9 G/DL (3.4-5.0); ANION GAP 14 (8-16); BLOOD UREA NITROGEN 45 MG/DL (7-18); BUN/CREATININE RATIO 8.8 (5.4-32.0); CALCIUM 8.6 MG/DL (8.5-10.1); CHLORIDE 107 MMOL/L (99-107); CREATININE 5.11 MG/DL (0.60-1.10); GLUCOSE 99 MG/DL (70-104); PHOSPHORUS 4.5 MG/DL (2.3-4.5); POTASSIUM 3.6 MMOL/L (3.5-5.1); SODIUM 146 MMOL/L (135-145); TOTAL CARBON DIOXIDE 25.1 MMOL/L (24-32); eGFR 11 ML/MIN
[2020-10-09 07:55] LABS: CREATINE KINASE 1694 U/L (39-308)
[2020-10-09] MEDS: furosemide 40mg/4ml inj IV SCH ×2 (08:11→21:00)
[2020-10-09] MEDS: levoTHYROXINE 75mcg tablet PO SCH (08:11)
[2020-10-09] MEDS: duloxetine 30mg CAPSULE.DR PO SCH ×2 (08:11→21:02)
[2020-10-09] MEDS: lactobacillus rhamnosus 10,000 MMU CELLS/CAPSULE PO SCH ×2 (08:11→21:01)
[2020-10-09] MEDS: atorvastatin 20mg tablet PO SCH (08:11)
[2020-10-09 08:40] VITALS: BP 147/80
[2020-10-09 10:00] VITALS: BP 133/57
[2020-10-09] MEDS: levoFLOXACIN 250mg tablet PO SCH (11:19)
[2020-10-09] MEDS: HYDROcodone/acetaminophen 5mg/325mg tablet PO PRN (11:28)
[2020-10-09] MEDS: NUT.TX.IMP.RENAL FXN,LAC-REDUC (Nepro) 237 ML VANILLA PO SCH ×2 (12:52→18:01)
--- NOTE | 2020-10-09 12:58 | NUR ---
PAGER ID: [phone] MESSAGE: Ana Laura [id number] carlos Doni Thomas- I gave Larimer 5 for spine pain, it was ineffective. Can I give him something else? Morphine? LFT's elevated, switch existing Larimer to oxy IR 5 and 10 to avoid Tylenol? Please advise, thanks Addendum: 10/09/20 at 1307 by Katy Palmer RN MD Martinez returned my call, orders received.
--- NOTE | 2020-10-09 13:01 | NUR ---
Pt has become more confused throughout the day. He is alert and appropriate to self, place, and reason he is here, knows it is September but not the year. However he has been saying that he wants "to be buried in [place] with his son" and that we are "going to kill him today". Wants to know what position he will be in when he dies. I have reassured him multiple times that we are not trying to kill him and we are trying to heal him. I asked if he believed me and he said, "no".
[2020-10-09] MEDS: morphine 2 MG/ML inj. syringe IV PRN (15:33)
[2020-10-09 18:00] VITALS: BP 115/54
--- NOTE | 2020-10-09 18:57 | NUR ---
Patient in room ORTHO 4009. I have received report from ELVIA PEARSON and had the opportunity to ask questions and assume patient care.
[2020-10-09] MEDS: traZODone 50mg tablet PO SCH (21:01)
[2020-10-09] MEDS: oxyCODONE IR 5mg (immed. release) tablet PO PRN (21:01)
[2020-10-09] MEDS: finasteride 5mg tablet PO SCH (21:02)
[2020-10-09 22:04] VITALS: BP 132/65
[2020-10-10 06:00] VITALS: BP 130/64
--- NOTE | 2020-10-10 06:28 | NUR ---
Problems reprioritized. Patient report given, questions answered & plan of care reviewed with EUSEBIO PEARSON.
--- NOTE | 2020-10-10 06:28 | NUR ---
Patient in room ORTHO 4009. I have received report from MICHEL Donaldson and had the opportunity to ask questions and assume patient care.
[2020-10-10] MEDS: furosemide 40mg/4ml inj IV SCH ×2 (07:16→19:52)
[2020-10-10] MEDS: atorvastatin 20mg tablet PO SCH (07:17)
[2020-10-10] MEDS: levoTHYROXINE 75mcg tablet PO SCH (07:17)
[2020-10-10] MEDS: lactobacillus rhamnosus 10,000 MMU CELLS/CAPSULE PO SCH ×2 (07:17→19:52)
[2020-10-10] MEDS: duloxetine 30mg CAPSULE.DR PO SCH ×2 (07:18→19:53)
[2020-10-10 07:21] LABS: BASOPHILS % (AUTO) 0.2 % (0-1); EOSINOPHILS # (AUTO) 0.2 X10'3 (0-0.9); EOSINOPHILS % (AUTO) 1.4 % (0-6); HEMATOCRIT 27.1 % (42.0-52.0); HEMOGLOBIN 8.9 g/dl (14.0-17.9); LYMPHOCYTES # (AUTO) 0.3 X10'3 (1.1-4.8); LYMPHOCYTES % (AUTO) 2.3 % (21-51); MEAN CORPUSCULAR HEMOGLOBIN 34.2 PG (27.0-31.0); MEAN CORPUSCULAR HGB CONC 32.8 g/dL (33.0-36.5); MEAN CORPUSCULAR VOLUME 104.3 FL (78-98); MEAN PLATELET VOLUME 8.9 FL (7.4-10.4); MONOCYTES # (AUTO) 1.4 X10'3 (0-0.9); MONOCYTES % (AUTO) 10.5 % (2-12); NEUTROPHILS # (AUTO) 11.2 X10'3 (1.8-7.7); NEUTROPHILS % (AUTO) 85.6 % (42-75); PLATELET COUNT 227 X10'3 (140-440); RED CELL DISTRIBUTION WIDTH 14.9 % (11.5-14.5); WHITE BLOOD COUNT 13.1 X10'3 (4.5-11.0)
[2020-10-10] MEDS: oxyCODONE IR 5mg (immed. release) tablet PO PRN ×2 (07:25→12:23)
[2020-10-10 07:49] LABS: ALBUMIN 1.8 G/DL (3.4-5.0); ANION GAP 11 (8-16); BLOOD UREA NITROGEN 56 MG/DL (7-18); BUN/CREATININE RATIO 9.2 (5.4-32.0); CALCIUM 8.2 MG/DL (8.5-10.1); CHLORIDE 106 MMOL/L (99-107); CREATININE 6.09 MG/DL (0.60-1.10); GLUCOSE 104 MG/DL (70-104); MAGNESIUM 1.9 MG/DL (1.5-2.4); PHOSPHORUS 4.4 MG/DL (2.3-4.5); POTASSIUM 3.5 MMOL/L (3.5-5.1); SODIUM 143 MMOL/L (135-145); eGFR 9 ML/MIN
[2020-10-10] MEDS: NUT.TX.IMP.RENAL FXN,LAC-REDUC (Nepro) 237 ML VANILLA PO SCH ×3 (08:00→18:00)
[2020-10-10] MEDS: morphine 2 MG/ML inj. syringe IV PRN ×3 (09:14→19:53)
[2020-10-10 11:00] VITALS: BP 118/51
[2020-10-10 13:24] LABS: ALANINE AMINOTRANSFERASE 172 U/L (12-78); ALBUMIN/GLOBULIN RATIO 0.6 (1.1-1.5); ALKALINE PHOSPHATASE 138 IU/L (46-116); ASPARTATE AMINO TRANSFERASE 209 U/L (10-37); BILIRUBIN,DIRECT 0.2 MG/DL (0-0.3); BILIRUBIN,TOTAL 0.7 MG/DL (0.1-1.0)
[2020-10-10 18:00] VITALS: BP 127/57
--- NOTE | 2020-10-10 18:21 | NUR ---
Problems reprioritized. Patient report given, questions answered & plan of care reviewed with MICHEL Cardenas.
--- NOTE | 2020-10-10 18:30 | NUR ---
Patient in room ORTHO 4009. I have received report from MICHEL KAPLAN and had the opportunity to ask questions and assume patient care.
[2020-10-10] MEDS: heparin, porcine 5000 units/ml vial SQ SCH (19:52)
[2020-10-10] MEDS: traZODone 50mg tablet PO SCH (19:52)
[2020-10-10] MEDS: finasteride 5mg tablet PO SCH (19:53)
[2020-10-10 22:00] VITALS: BP 94/55
--- NOTE | 2020-10-11 06:35 | NUR ---
Problems reprioritized. Patient report given, questions answered & plan of care reviewed with MICHEL HAGER.
[2020-10-11] MEDS ORDERED: heparin 1,000 units/ml 10ml inj HE ONE ×2 (08:00)
[2020-10-11] MEDS ORDERED: EPOETIN ALFA-EPBX 20,000 UNIT/ML 1 ML MDV IV ONE (08:00)
[2020-10-11] MEDS ORDERED: normal saline 1000ml 250 ML IV PRN (08:00)
[2020-10-11] MEDS ORDERED: heparin 1,000unit/ml 10ml vial 10 ML IV ONE (08:00)
[2020-10-11] MEDS: NUT.TX.IMP.RENAL FXN,LAC-REDUC (Nepro) 237 ML VANILLA PO SCH ×3 (08:19→17:27)
[2020-10-11] MEDS: levoTHYROXINE 75mcg tablet PO SCH (08:27)
[2020-10-11] MEDS: atorvastatin 20mg tablet PO SCH (08:27)
[2020-10-11] MEDS: duloxetine 30mg CAPSULE.DR PO SCH ×2 (08:27→20:13)
[2020-10-11] MEDS: furosemide 40mg/4ml inj IV SCH ×2 (08:27→20:12)
[2020-10-11] MEDS: lactobacillus rhamnosus 10,000 MMU CELLS/CAPSULE PO SCH ×2 (08:27→20:13)
[2020-10-11] MEDS: oxyCODONE IR 5mg (immed. release) tablet PO PRN ×3 (08:28→20:15)
[2020-10-11] MEDS: heparin, porcine 5000 units/ml vial SQ SCH ×2 (08:30→20:12)
[2020-10-11 09:30] LABS: BASOPHILS # (AUTO) 0.1 X10'3 (0-0.2); BASOPHILS % (AUTO) 0.4 % (0-1); EOSINOPHILS # (AUTO) 0.2 X10'3 (0-0.9); EOSINOPHILS % (AUTO) 1.3 % (0-6); HEMATOCRIT 27.8 % (42.0-52.0); LYMPHOCYTES # (AUTO) 0.3 X10'3 (1.1-4.8); LYMPHOCYTES % (AUTO) 1.7 % (21-51); MEAN CORPUSCULAR HEMOGLOBIN 33.5 PG (27.0-31.0); MEAN CORPUSCULAR HGB CONC 32.2 g/dL (33.0-36.5); MEAN CORPUSCULAR VOLUME 103.9 FL (78-98); MEAN PLATELET VOLUME 8.8 FL (7.4-10.4); MONOCYTES # (AUTO) 1.4 X10'3 (0-0.9); MONOCYTES % (AUTO) 8.5 % (2-12); NEUTROPHILS # (AUTO) 14.5 X10'3 (1.8-7.7); NEUTROPHILS % (AUTO) 88.1 % (42-75); PLATELET COUNT 228 X10'3 (140-440); RED BLOOD COUNT 2.68 X10'6 (4.70-6.10); RED CELL DISTRIBUTION WIDTH 14.7 % (11.5-14.5); WHITE BLOOD COUNT 16.5 X10'3 (4.5-11.0)
[2020-10-11 09:40] LABS: ALANINE AMINOTRANSFERASE 142 U/L (12-78); ALBUMIN 1.8 G/DL (3.4-5.0); ALBUMIN/GLOBULIN RATIO 0.5 (1.1-1.5); ALKALINE PHOSPHATASE 136 IU/L (46-116); ANION GAP 11 (8-16); ASPARTATE AMINO TRANSFERASE 157 U/L (10-37); BILIRUBIN,TOTAL 0.7 MG/DL (0.1-1.0); BLOOD UREA NITROGEN 43 MG/DL (7-18); BUN/CREATININE RATIO 10.2 (5.4-32.0); CALCIUM 8.4 MG/DL (8.5-10.1); CHLORIDE 107 MMOL/L (99-107); GLUCOSE 105 MG/DL (70-104); MAGNESIUM 1.8 MG/DL (1.5-2.4); PHOSPHORUS 3.1 MG/DL (2.3-4.5); POTASSIUM 3.6 MMOL/L (3.5-5.1); SODIUM 146 MMOL/L (135-145); TOTAL CARBON DIOXIDE 28.2 MMOL/L (24-32); TOTAL PROTEIN 5.2 G/DL (6.4-8.2); eGFR 14 ML/MIN
[2020-10-11 10:00] VITALS: BP 126/53
[2020-10-11] MEDS: levoFLOXACIN 250mg tablet PO SCH (13:26)
--- NOTE | 2020-10-11 14:26 | NUR ---
Reassessment: Pt PO intake fluctuating 25-50% at meals on a renal diet and Nepro 50-75% TIDWM past two days; refused breakfast/ONS today and prior PO 0-25% meals with 50% at times. Meeting 70% of estimated nutrient needs past two days. Overall partially meeting needs this admit. Continuing MM5 diet texture modification per MACHINE OPERATOR TRANSPLANTER recs. Last BM 10/09 with no PRN or routine bowel care available. Will continue with current interventions and continue to monitor closely. Recommendations: 1) Continue renal diet, MM5 texture modifications per MACHINE OPERATOR TRANSPLANTER recs 2) Nepro TIDWM; Encourage PO intake 3) Monitor renal labs and need for Phosphate binder; if MD agreeable 4) Routine bowel care 5) Wts with HD Addendum: 10/11/20 at [address] Amended: Links added. Addendum: 10/11/20 at [address] AYAH wade w/ audit intern note.
[2020-10-11 18:00] VITALS: BP 100/47
--- NOTE | 2020-10-11 18:18 | NUR ---
Patient in room ORTHO 4009. I have received report from MICHEL HAGER and had the opportunity to ask questions and assume patient care.
[2020-10-11] MEDS: finasteride 5mg tablet PO SCH (20:12)
[2020-10-11] MEDS: traZODone 50mg tablet PO SCH (20:13)
[2020-10-11 22:00] VITALS: BP 103/47
[2020-10-12] MEDS: oxyCODONE IR 5mg (immed. release) tablet PO PRN ×2 (05:40→10:05)
[2020-10-12 06:00] VITALS: BP 116/53
--- NOTE | 2020-10-12 06:38 | NUR ---
Problems reprioritized. Patient report given, questions answered & plan of care reviewed with MICHEL MERCADO.
[2020-10-12 07:19] LABS: BASOPHILS # (AUTO) 0.1 X10'3 (0-0.2); BASOPHILS % (AUTO) 0.8 % (0-1); EOSINOPHILS # (AUTO) 0.2 X10'3 (0-0.9); EOSINOPHILS % (AUTO) 1.8 % (0-6); HEMATOCRIT 26.6 % (42.0-52.0); HEMOGLOBIN 8.9 g/dl (14.0-17.9); LYMPHOCYTES # (AUTO) 0.3 X10'3 (1.1-4.8); LYMPHOCYTES % (AUTO) 3.4 % (21-51); MEAN CORPUSCULAR HEMOGLOBIN 34.5 PG (27.0-31.0); MEAN CORPUSCULAR HGB CONC 33.3 g/dL (33.0-36.5); MEAN CORPUSCULAR VOLUME 103.6 FL (78-98); MEAN PLATELET VOLUME 8.9 FL (7.4-10.4); MONOCYTES # (AUTO) 1.2 X10'3 (0-0.9); MONOCYTES % (AUTO) 13.1 % (2-12); NEUTROPHILS # (AUTO) 7.6 X10'3 (1.8-7.7); NEUTROPHILS % (AUTO) 80.9 % (42-75); PLATELET COUNT 225 X10'3 (140-440); RED BLOOD COUNT 2.56 X10'6 (4.70-6.10); RED CELL DISTRIBUTION WIDTH 14.6 % (11.5-14.5); WHITE BLOOD COUNT 9.4 X10'3 (4.5-11.0)
[2020-10-12] MEDS: levoTHYROXINE 75mcg tablet PO SCH (07:29)
[2020-10-12] MEDS: lactobacillus rhamnosus 10,000 MMU CELLS/CAPSULE PO SCH ×2 (07:30→19:30)
[2020-10-12] MEDS: duloxetine 30mg CAPSULE.DR PO SCH ×2 (07:31→19:30)
[2020-10-12] MEDS: atorvastatin 20mg tablet PO SCH (07:31)
[2020-10-12] MEDS: heparin, porcine 5000 units/ml vial SQ SCH ×2 (07:34→19:26)
--- NOTE | 2020-10-12 07:42 | NUR ---
Patient in room ORTHO 4009. I have received report from Nuria PEARSON and had the opportunity to ask questions and assume patient care.
[2020-10-12 07:48] LABS: ALANINE AMINOTRANSFERASE 120 U/L (12-78); ALBUMIN 1.8 G/DL (3.4-5.0); ALBUMIN/GLOBULIN RATIO 0.5 (1.1-1.5); ALKALINE PHOSPHATASE 167 IU/L (46-116); ANION GAP 12 (8-16); ASPARTATE AMINO TRANSFERASE 127 U/L (10-37); BILIRUBIN,TOTAL 0.6 MG/DL (0.1-1.0); BLOOD UREA NITROGEN 46 MG/DL (7-18); BUN/CREATININE RATIO 10.1 (5.4-32.0); CALCIUM 8.6 MG/DL (8.5-10.1); CHLORIDE 111 MMOL/L (99-107); CREATININE 4.56 MG/DL (0.60-1.10); GLUCOSE 107 MG/DL (70-104); MAGNESIUM 1.8 MG/DL (1.5-2.4); PHOSPHORUS 3.6 MG/DL (2.3-4.5); POTASSIUM 3.8 MMOL/L (3.5-5.1); SODIUM 150 MMOL/L (135-145); TOTAL CARBON DIOXIDE 26.8 MMOL/L (24-32); TOTAL PROTEIN 5.2 G/DL (6.4-8.2); eGFR 12 ML/MIN
[2020-10-12] MEDS: NUT.TX.IMP.RENAL FXN,LAC-REDUC (Nepro) 237 ML VANILLA PO SCH ×3 (08:00→18:02)
--- NOTE | 2020-10-12 08:48 | NUR ---
SCANNER ON COMPUTER NOT SCANNING MEDS INTO [employer]. CHECKED ALL MEDS PRIOR TO ADMINISTRATION.
[2020-10-12 09:08] VITALS: BP 106/48
[2020-10-12] MEDS: furosemide 40mg/4ml inj IV SCH ×2 (09:25→19:30)
[2020-10-12 10:00] VITALS: BP 91/49
--- NOTE | 2020-10-12 10:31 | NUR ---
acting as clinical instructor, i reviewed certified nursing assistant documentation
--- NOTE | 2020-10-12 11:52 | NUR ---
Reported off to Holly PEARSON. Pt currently sleeping.
[2020-10-12] MEDS: morphine 2 MG/ML inj. syringe IV PRN ×2 (12:24→19:26)
[2020-10-12 18:00] VITALS: BP 121/57
--- NOTE | 2020-10-12 18:23 | NUR ---
Problems reprioritized. Patient report given, questions answered & plan of care reviewed with MICHEL MERCADO.
[2020-10-12] MEDS: traZODone 50mg tablet PO SCH (21:09)
[2020-10-12] MEDS: finasteride 5mg tablet PO SCH (21:09)
[2020-10-12 22:00] VITALS: BP 142/46
[2020-10-13] MEDS: oxyCODONE IR 5mg (immed. release) tablet PO PRN ×4 (05:19→21:46)
[2020-10-13 06:00] VITALS: BP 120/57
--- NOTE | 2020-10-13 06:25 | NUR ---
Problems reprioritized. Patient report given, questions answered & plan of care reviewed with MICHEL PAGE.
[2020-10-13 06:50] LABS: BASOPHILS % (AUTO) 0.5 % (0-1); EOSINOPHILS # (AUTO) 0.2 X10'3 (0-0.9); EOSINOPHILS % (AUTO) 2.6 % (0-6); HEMATOCRIT 25.3 % (42.0-52.0); HEMOGLOBIN 8.5 g/dl (14.0-17.9); LYMPHOCYTES # (AUTO) 0.3 X10'3 (1.1-4.8); LYMPHOCYTES % (AUTO) 3.5 % (21-51); MEAN CORPUSCULAR HEMOGLOBIN 34.9 PG (27.0-31.0); MEAN CORPUSCULAR HGB CONC 33.6 g/dL (33.0-36.5); MEAN CORPUSCULAR VOLUME 103.8 FL (78-98); MEAN PLATELET VOLUME 8.9 FL (7.4-10.4); MONOCYTES # (AUTO) 0.9 X10'3 (0-0.9); MONOCYTES % (AUTO) 11.9 % (2-12); NEUTROPHILS # (AUTO) 6.5 X10'3 (1.8-7.7); NEUTROPHILS % (AUTO) 81.5 % (42-75); PLATELET COUNT 223 X10'3 (140-440); RED BLOOD COUNT 2.44 X10'6 (4.70-6.10); RED CELL DISTRIBUTION WIDTH 14.8 % (11.5-14.5)
[2020-10-13 07:16] LABS: ALANINE AMINOTRANSFERASE 107 U/L (12-78); ALBUMIN 1.8 G/DL (3.4-5.0); ALBUMIN/GLOBULIN RATIO 0.5 (1.1-1.5); ALKALINE PHOSPHATASE 189 IU/L (46-116); ANION GAP 11 (8-16); ASPARTATE AMINO TRANSFERASE 110 U/L (10-37); BILIRUBIN,TOTAL 0.8 MG/DL (0.1-1.0); BLOOD UREA NITROGEN 59 MG/DL (7-18); BUN/CREATININE RATIO 12.1 (5.4-32.0); CALCIUM 8.9 MG/DL (8.5-10.1); CHLORIDE 109 MMOL/L (99-107); CREATININE 4.89 MG/DL (0.60-1.10); GLUCOSE 118 MG/DL (70-104); MAGNESIUM 1.9 MG/DL (1.5-2.4); PHOSPHORUS 4.3 MG/DL (2.3-4.5); POTASSIUM 3.6 MMOL/L (3.5-5.1); SODIUM 147 MMOL/L (135-145); TOTAL CARBON DIOXIDE 27.5 MMOL/L (24-32); TOTAL PROTEIN 5.4 G/DL (6.4-8.2); eGFR 12 ML/MIN
[2020-10-13] MEDS: duloxetine 30mg CAPSULE.DR PO SCH ×2 (07:53→21:45)
[2020-10-13] MEDS: atorvastatin 20mg tablet PO SCH (07:53)
[2020-10-13] MEDS: lactobacillus rhamnosus 10,000 MMU CELLS/CAPSULE PO SCH ×2 (07:53→21:45)
[2020-10-13] MEDS: levoTHYROXINE 75mcg tablet PO SCH (07:53)
[2020-10-13] MEDS: heparin, porcine 5000 units/ml vial SQ SCH ×2 (07:54→21:45)
[2020-10-13] MEDS: furosemide 40mg/4ml inj IV SCH ×2 (07:54→21:45)
[2020-10-13] MEDS: NUT.TX.IMP.RENAL FXN,LAC-REDUC (Nepro) 237 ML VANILLA PO SCH ×3 (08:00→18:40)
--- NOTE | 2020-10-13 09:42 | NUR ---
Daughter, Bethany, called in and requested a change in visitor list. She asked to change list to Bethany Randhawa, and Mehran Estrada. RN called front line supervisor security and had them make the change.
[2020-10-13 10:00] VITALS: BP 119/53
[2020-10-13] MEDS ORDERED: EPOETIN ALFA-EPBX 20,000 UNIT/ML 1 ML MDV IV ONE (10:25)
[2020-10-13] MEDS ORDERED: heparin 1,000unit/ml 10ml vial 10 ML IV ONE (10:25)
[2020-10-13] MEDS ORDERED: heparin 1,000 units/ml 10ml inj HE ONE ×2 (10:30)
[2020-10-13] MEDS: morphine 2 MG/ML inj. syringe IV PRN ×2 (10:48→13:57)
[2020-10-13 18:00] VITALS: BP 104/50
--- NOTE | 2020-10-13 18:15 | NUR ---
Patient in room ORTHO 4016. I have received report from Lam PEARSON and had the opportunity to ask questions and assume patient care.
[2020-10-13 21:45] VITALS: BP 108/56
[2020-10-13] MEDS: traZODone 50mg tablet PO SCH (21:45)
[2020-10-13] MEDS: finasteride 5mg tablet PO SCH (21:46)
[2020-10-14] MEDS: morphine 2 MG/ML inj. syringe IV PRN ×4 (01:08→14:59)
[2020-10-14] MEDS: ondansetron/PF 4mg/2ml inj IV PRN (02:30)
[2020-10-14 02:44] VITALS: BP 106/49
[2020-10-14] MEDS: oxyCODONE IR 5mg (immed. release) tablet PO PRN ×4 (03:45→22:24)
[2020-10-14 06:00] VITALS: BP 94/49
--- NOTE | 2020-10-14 06:13 | NUR ---
Problems reprioritized. Patient report given, questions answered & plan of care reviewed with Lam PEARSON.
[2020-10-14 06:22] LABS: BASOPHILS # (AUTO) 0.1 X10'3 (0-0.2); BASOPHILS % (AUTO) 0.7 % (0-1); EOSINOPHILS # (AUTO) 0.1 X10'3 (0-0.9); HEMATOCRIT 27.2 % (42.0-52.0); HEMOGLOBIN 9.1 g/dl (14.0-17.9); LYMPHOCYTES # (AUTO) 0.3 X10'3 (1.1-4.8); LYMPHOCYTES % (AUTO) 3.5 % (21-51); MEAN CORPUSCULAR HEMOGLOBIN 34.6 PG (27.0-31.0); MEAN CORPUSCULAR HGB CONC 33.4 g/dL (33.0-36.5); MEAN CORPUSCULAR VOLUME 103.7 FL (78-98); MEAN PLATELET VOLUME 9.3 FL (7.4-10.4); MONOCYTES # (AUTO) 0.9 X10'3 (0-0.9); MONOCYTES % (AUTO) 12.1 % (2-12); NEUTROPHILS # (AUTO) 6.2 X10'3 (1.8-7.7); NEUTROPHILS % (AUTO) 81.7 % (42-75); PLATELET COUNT 221 X10'3 (140-440); RED BLOOD COUNT 2.62 X10'6 (4.70-6.10); RED CELL DISTRIBUTION WIDTH 14.8 % (11.5-14.5); WHITE BLOOD COUNT 7.5 X10'3 (4.5-11.0)
[2020-10-14 06:35] LABS: ALANINE AMINOTRANSFERASE 118 U/L (12-78); ALBUMIN 1.9 G/DL (3.4-5.0); ALBUMIN/GLOBULIN RATIO 0.5 (1.1-1.5); ALKALINE PHOSPHATASE 255 IU/L (46-116); ANION GAP 8 (8-16); ASPARTATE AMINO TRANSFERASE 133 U/L (10-37); BILIRUBIN,TOTAL 0.8 MG/DL (0.1-1.0); BLOOD UREA NITROGEN 33 MG/DL (7-18); CALCIUM 8.9 MG/DL (8.5-10.1); CHLORIDE 106 MMOL/L (99-107); CREATININE 3.29 MG/DL (0.60-1.10); GLUCOSE 111 MG/DL (70-104); MAGNESIUM 1.7 MG/DL (1.5-2.4); PHOSPHORUS 3.9 MG/DL (2.3-4.5); POTASSIUM 3.9 MMOL/L (3.5-5.1); SODIUM 143 MMOL/L (135-145); TOTAL CARBON DIOXIDE 28.8 MMOL/L (24-32); TOTAL PROTEIN 5.8 G/DL (6.4-8.2); eGFR 18 ML/MIN
[2020-10-14] MEDS: duloxetine 30mg CAPSULE.DR PO SCH ×2 (07:20→22:22)
[2020-10-14] MEDS: levoTHYROXINE 75mcg tablet PO SCH (07:20)
[2020-10-14] MEDS: lactobacillus rhamnosus 10,000 MMU CELLS/CAPSULE PO SCH ×2 (07:20→22:22)
[2020-10-14] MEDS: furosemide 40mg/4ml inj IV SCH ×2 (07:20→20:00)
[2020-10-14] MEDS: heparin, porcine 5000 units/ml vial SQ SCH ×2 (07:20→22:23)
[2020-10-14] MEDS: atorvastatin 20mg tablet PO SCH (07:20)
[2020-10-14] MEDS: NUT.TX.IMP.RENAL FXN,LAC-REDUC (Nepro) 237 ML VANILLA PO SCH ×3 (08:00→18:00)
[2020-10-14 10:00] VITALS: BP 94/43
--- NOTE | 2020-10-14 14:43 | NUR ---
Reassessment: Pt PO continues to fluctuate. slightly improving 25-50% avg meals; with occasional 0% and 100% meals. Noted 75-100% breakfast and lunch today. PO intake ONS average 75-100%. Partially meeting estimated nutrient needs. Last BM 10/12. Will continue current interventions and continue to monitor. Recommendations: 1) Continue renal diet, MM5 texture modifications per INDUSTRIAL CONTROLS TECHNICIAN recs 2) Nepro TIDWM; Encourage PO intake 3) Routine bowel care 4) Wts with HD Addendum: 10/14/20 at [address] Amended: Links added. Addendum: 10/14/20 at [address] AYAH agrees w/ above music industry internship note.
--- NOTE | 2020-10-14 15:10 | NUR ---
Pt states that he usually gets prednisone shots in his back usually about every six months for back pain. 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
[2020-10-14 18:00] VITALS: BP 107/46
--- NOTE | 2020-10-14 18:45 | NUR ---
Patient in room ORTHO 4016. I have received report from Lam PEARSON and had the opportunity to ask questions and assume patient care.
[2020-10-14 22:00] VITALS: BP 100/45
[2020-10-14] MEDS: finasteride 5mg tablet PO SCH (22:22)
[2020-10-14] MEDS: traZODone 50mg tablet PO SCH (22:22)
[2020-10-15] MEDS: morphine 2 MG/ML inj. syringe IV PRN (01:01)
[2020-10-15 02:00] VITALS: BP 96/43
[2020-10-15 05:30] VITALS: BP 82/37
--- NOTE | 2020-10-15 06:15 | NUR ---
Patient in room ORTHO 4016. I have received report from MICHEL Cruz and had the opportunity to ask questions and assume patient care.
--- NOTE | 2020-10-15 06:34 | NUR ---
Problems reprioritized. Patient report given, questions answered & plan of care reviewed with Radha RN.
[2020-10-15 07:06] LABS: BASOPHILS % (AUTO) 0.4 % (0-1); EOSINOPHILS # (AUTO) 0.1 X10'3 (0-0.9); EOSINOPHILS % (AUTO) 2.2 % (0-6); HEMATOCRIT 27.7 % (42.0-52.0); HEMOGLOBIN 9.1 g/dl (14.0-17.9); LYMPHOCYTES # (AUTO) 0.3 X10'3 (1.1-4.8); LYMPHOCYTES % (AUTO) 4.1 % (21-51); MEAN CORPUSCULAR HEMOGLOBIN 34.3 PG (27.0-31.0); MEAN CORPUSCULAR VOLUME 103.9 FL (78-98); MEAN PLATELET VOLUME 9.4 FL (7.4-10.4); MONOCYTES # (AUTO) 0.7 X10'3 (0-0.9); MONOCYTES % (AUTO) 10.6 % (2-12); NEUTROPHILS # (AUTO) 5.2 X10'3 (1.8-7.7); NEUTROPHILS % (AUTO) 82.7 % (42-75); PLATELET COUNT 211 X10'3 (140-440); RED BLOOD COUNT 2.67 X10'6 (4.70-6.10); RED CELL DISTRIBUTION WIDTH 14.6 % (11.5-14.5); WHITE BLOOD COUNT 6.3 X10'3 (4.5-11.0)
[2020-10-15 07:38] LABS: ALANINE AMINOTRANSFERASE 123 U/L (12-78); ALBUMIN 1.8 G/DL (3.4-5.0); ALBUMIN/GLOBULIN RATIO 0.5 (1.1-1.5); ALKALINE PHOSPHATASE 324 IU/L (46-116); ANION GAP 9 (8-16); ASPARTATE AMINO TRANSFERASE 156 U/L (10-37); BILIRUBIN,TOTAL 0.8 MG/DL (0.1-1.0); BLOOD UREA NITROGEN 48 MG/DL (7-18); BUN/CREATININE RATIO 11.7 (5.4-32.0); CALCIUM 9.1 MG/DL (8.5-10.1); CHLORIDE 105 MMOL/L (99-107); CREATININE 4.11 MG/DL (0.60-1.10); GLUCOSE 110 MG/DL (70-104); MAGNESIUM 1.7 MG/DL (1.5-2.4); PHOSPHORUS 4.7 MG/DL (2.3-4.5); POTASSIUM 3.7 MMOL/L (3.5-5.1); SODIUM 144 MMOL/L (135-145); TOTAL CARBON DIOXIDE 30.5 MMOL/L (24-32); TOTAL PROTEIN 5.8 G/DL (6.4-8.2); eGFR 14 ML/MIN
[2020-10-15] MEDS: furosemide 40mg/4ml inj IV SCH ×2 (07:41→20:19)
[2020-10-15] MEDS: NUT.TX.IMP.RENAL FXN,LAC-REDUC (Nepro) 237 ML VANILLA PO SCH ×3 (07:42→18:24)
[2020-10-15] MEDS ORDERED: heparin 1,000 units/ml 10ml inj IV ONE (08:00)
[2020-10-15] MEDS ORDERED: albumin (human) 25% 100ml IV 100 ML IV PRN (08:00)
[2020-10-15] MEDS ORDERED: EPOETIN ALFA-EPBX 20,000 UNIT/ML 1 ML MDV IV ONE (08:00)
[2020-10-15] MEDS ORDERED: heparin 1,000unit/ml 10ml vial 10 ML IV ONE (08:00)
[2020-10-15] MEDS ORDERED: heparin 1,000 units/ml 10ml inj HE ONE ×2 (08:00)
[2020-10-15] MEDS: lactobacillus rhamnosus 10,000 MMU CELLS/CAPSULE PO SCH ×2 (08:38→20:19)
[2020-10-15] MEDS: duloxetine 30mg CAPSULE.DR PO SCH ×2 (08:38→20:19)
[2020-10-15] MEDS: atorvastatin 20mg tablet PO SCH (08:38)
[2020-10-15] MEDS: levoTHYROXINE 75mcg tablet PO SCH (08:38)
[2020-10-15] MEDS: bisacodyl 10mg suppository rectal RC PRN (08:38)
[2020-10-15] MEDS: heparin, porcine 5000 units/ml vial SQ SCH ×2 (08:39→20:19)
[2020-10-15 10:00] VITALS: BP 111/53
[2020-10-15] MEDS: oxyCODONE IR 5mg (immed. release) tablet PO PRN ×3 (10:34→22:18)
[2020-10-15 18:00] VITALS: BP 86/56
--- NOTE | 2020-10-15 18:15 | NUR ---
Problems reprioritized. Patient report given, questions answered & plan of care reviewed with MICHEL Donaldson.
--- NOTE | 2020-10-15 18:48 | NUR ---
Patient in room ORTHO 4016. I have received report from Radha PEARSON and had the opportunity to ask questions and assume patient care.
[2020-10-15] MEDS: finasteride 5mg tablet PO SCH (20:18)
[2020-10-15] MEDS: traZODone 50mg tablet PO SCH (20:19)
[2020-10-15 22:00] VITALS: BP 94/45
--- NOTE | 2020-10-15 22:27 | NUR ---
Problems reprioritized. Patient report given, questions answered & plan of care reviewed with ZOILA PEARSON.
[2020-10-16 02:00] VITALS: BP 89/44
[2020-10-16] MEDS: oxyCODONE IR 5mg (immed. release) tablet PO PRN ×3 (03:11→15:33)
[2020-10-16 06:00] VITALS: BP 86/56
--- NOTE | 2020-10-16 06:16 | NUR ---
Problems reprioritized. Patient report given, questions answered & plan of care reviewed with MICHEL Du.
[2020-10-16 06:41] LABS: BASOPHILS % (AUTO) 0.6 % (0-1); EOSINOPHILS # (AUTO) 0.2 X10'3 (0-0.9); EOSINOPHILS % (AUTO) 2.6 % (0-6); HEMATOCRIT 24.1 % (42.0-52.0); LYMPHOCYTES # (AUTO) 0.3 X10'3 (1.1-4.8); LYMPHOCYTES % (AUTO) 4.1 % (21-51); MEAN CORPUSCULAR HEMOGLOBIN 34.3 PG (27.0-31.0); MEAN CORPUSCULAR HGB CONC 33.2 g/dL (33.0-36.5); MEAN CORPUSCULAR VOLUME 103.3 FL (78-98); MEAN PLATELET VOLUME 9.8 FL (7.4-10.4); MONOCYTES # (AUTO) 0.8 X10'3 (0-0.9); MONOCYTES % (AUTO) 11.2 % (2-12); NEUTROPHILS # (AUTO) 5.6 X10'3 (1.8-7.7); NEUTROPHILS % (AUTO) 81.5 % (42-75); PLATELET COUNT 200 X10'3 (140-440); RED BLOOD COUNT 2.33 X10'6 (4.70-6.10); RED CELL DISTRIBUTION WIDTH 14.4 % (11.5-14.5); WHITE BLOOD COUNT 6.9 X10'3 (4.5-11.0)
[2020-10-16 06:53] LABS: ALANINE AMINOTRANSFERASE 102 U/L (12-78); ALBUMIN/GLOBULIN RATIO 0.5 (1.1-1.5); ALKALINE PHOSPHATASE 313 IU/L (46-116); ANION GAP 8 (8-16); ASPARTATE AMINO TRANSFERASE 123 U/L (10-37); BILIRUBIN,TOTAL 0.9 MG/DL (0.1-1.0); BLOOD UREA NITROGEN 33 MG/DL (7-18); BUN/CREATININE RATIO 11.2 (5.4-32.0); CALCIUM 9.2 MG/DL (8.5-10.1); CHLORIDE 104 MMOL/L (99-107); CREATININE 2.94 MG/DL (0.60-1.10); GLUCOSE 106 MG/DL (70-104); MAGNESIUM 1.8 MG/DL (1.5-2.4); PHOSPHORUS 3.9 MG/DL (2.3-4.5); POTASSIUM 3.9 MMOL/L (3.5-5.1); SODIUM 142 MMOL/L (135-145); TOTAL PROTEIN 5.8 G/DL (6.4-8.2); eGFR 21 ML/MIN
[2020-10-16] MEDS: levoTHYROXINE 75mcg tablet PO SCH (08:28)
[2020-10-16] MEDS: atorvastatin 20mg tablet PO SCH (08:28)
[2020-10-16] MEDS: lactobacillus rhamnosus 10,000 MMU CELLS/CAPSULE PO SCH ×2 (08:28→20:31)
[2020-10-16] MEDS: furosemide 40mg/4ml inj IV SCH ×2 (08:28→20:31)
[2020-10-16] MEDS: duloxetine 30mg CAPSULE.DR PO SCH ×2 (08:28→20:31)
[2020-10-16] MEDS: heparin, porcine 5000 units/ml vial SQ SCH ×2 (08:29→20:31)
[2020-10-16] MEDS: NUT.TX.IMP.RENAL FXN,LAC-REDUC (Nepro) 237 ML VANILLA PO SCH ×3 (08:29→18:08)
[2020-10-16 08:30] VITALS: BP 103/70
[2020-10-16 10:00] VITALS: BP 92/38
[2020-10-16] MEDS: morphine 2 MG/ML inj. syringe IV PRN (12:17)
[2020-10-16 18:00] VITALS: BP 101/45
[2020-10-16] MEDS: traZODone 50mg tablet PO SCH (20:31)
[2020-10-16] MEDS: finasteride 5mg tablet PO SCH (20:31)
[2020-10-16 22:00] VITALS: BP 119/57
[2020-10-17] MEDS: morphine 2 MG/ML inj. syringe IV PRN ×2 (02:46→07:15)
--- NOTE | 2020-10-17 06:35 | NUR ---
Patient in room ORTHO 4016. I have received report from Anika PEARSON and had the opportunity to ask questions and assume patient care.
--- NOTE | 2020-10-17 06:40 | NUR ---
Problems reprioritized. Patient report given, questions answered & plan of care reviewed with JAMIE PEARSON.
[2020-10-17 06:43] LABS: BASOPHILS % (AUTO) 0.4 % (0-1); EOSINOPHILS # (AUTO) 0.2 X10'3 (0-0.9); EOSINOPHILS % (AUTO) 2.9 % (0-6); HEMATOCRIT 23.8 % (42.0-52.0); LYMPHOCYTES # (AUTO) 0.2 X10'3 (1.1-4.8); LYMPHOCYTES % (AUTO) 4.2 % (21-51); MEAN CORPUSCULAR HEMOGLOBIN 34.3 PG (27.0-31.0); MEAN CORPUSCULAR HGB CONC 33.7 g/dL (33.0-36.5); MEAN CORPUSCULAR VOLUME 101.8 FL (78-98); MEAN PLATELET VOLUME 9.3 FL (7.4-10.4); MONOCYTES # (AUTO) 0.7 X10'3 (0-0.9); MONOCYTES % (AUTO) 12.5 % (2-12); NEUTROPHILS # (AUTO) 4.5 X10'3 (1.8-7.7); PLATELET COUNT 225 X10'3 (140-440); RED BLOOD COUNT 2.34 X10'6 (4.70-6.10); RED CELL DISTRIBUTION WIDTH 14.4 % (11.5-14.5); WHITE BLOOD COUNT 5.6 X10'3 (4.5-11.0)
[2020-10-17 06:53] VITALS: BP 110/45
--- NOTE | 2020-10-17 06:54 | NUR ---
not done by noc shift Addendum: 10/17/20 at 0654 by Alessandra Gresham RN Amended: Links added.
[2020-10-17 07:06] LABS: ALANINE AMINOTRANSFERASE 90 U/L (12-78); ALBUMIN 1.9 G/DL (3.4-5.0); ALBUMIN/GLOBULIN RATIO 0.5 (1.1-1.5); ALKALINE PHOSPHATASE 352 IU/L (46-116); ANION GAP 9 (8-16); ASPARTATE AMINO TRANSFERASE 99 U/L (10-37); BILIRUBIN,TOTAL 0.7 MG/DL (0.1-1.0); BLOOD UREA NITROGEN 45 MG/DL (7-18); BUN/CREATININE RATIO 14.2 (5.4-32.0); CALCIUM 9.7 MG/DL (8.5-10.1); CHLORIDE 105 MMOL/L (99-107); CREATININE 3.16 MG/DL (0.60-1.10); GLUCOSE 117 MG/DL (70-104); MAGNESIUM 1.7 MG/DL (1.5-2.4); PHOSPHORUS 4.6 MG/DL (2.3-4.5); POTASSIUM 3.7 MMOL/L (3.5-5.1); SODIUM 145 MMOL/L (135-145); TOTAL PROTEIN 5.8 G/DL (6.4-8.2); eGFR 19 ML/MIN
[2020-10-17] MEDS: furosemide 40mg/4ml inj IV SCH ×3 (08:00→20:00)
[2020-10-17] MEDS: levoTHYROXINE 75mcg tablet PO SCH (08:20)
[2020-10-17] MEDS: duloxetine 30mg CAPSULE.DR PO SCH ×2 (08:20→20:45)
[2020-10-17] MEDS: oxyCODONE IR 5mg (immed. release) tablet PO PRN ×4 (08:20→20:45)
[2020-10-17] MEDS: atorvastatin 20mg tablet PO SCH (08:21)
[2020-10-17] MEDS: lactobacillus rhamnosus 10,000 MMU CELLS/CAPSULE PO SCH ×2 (08:21→20:45)
[2020-10-17] MEDS: NUT.TX.IMP.RENAL FXN,LAC-REDUC (Nepro) 237 ML VANILLA PO SCH ×3 (08:23→18:00)
[2020-10-17] MEDS: heparin, porcine 5000 units/ml vial SQ SCH ×2 (08:24→20:46)
--- NOTE | 2020-10-17 10:30 | NUR ---
Patient was crying out in pain. Unable to give pain medications at this time as he has had IV morphine and oxy IR. Patient was put back to bed and pain is considerably less at this time.
--- NOTE | 2020-10-17 11:04 | NUR ---
F/u 10/17: Pt PO continues fluctuating 50% and 75% today and yesterday breakfasts but refusing all meals in between w/ PO ~0-25% meals overall. PO 75-100% Nepros TIDWM helping w/ protein/kcal needs on HD. Noted LBM 10/12 w/ anay since 10/09; RD d/w RN regarding routine bowel care and Phos binder if MD agreeable since on HD and likely 7 days constipation. Constipation likely to impact PO; noted pt AOx4 improved from prior intermittent confusion per EMR. Will continue to monitor for additional protein/kcal needs on HD. Recommendations: 1) Continue renal diet, MM5 texture modifications per OIL BURNER JOURNEYMAN recs; encourage PO 2) Nepro TIDWM; Encourage PO intake 3) Routine bowel care 4) Wts with HD Addendum: 10/17/20 at [address] Amended: Links added.
[2020-10-17 11:28] VITALS: BP 119/57
--- NOTE | 2020-10-17 13:53 | NUR ---
Wound care pictures taken and placed in the chart. Met by Dr. Lamas at the bedside and asked if he wanted the patient on a phosphate binder per quality control microbiology supervisor reccomendations. He said he would look into it as he is a new dialysis patient.
[2020-10-17 17:20] VITALS: BP 131/66
--- NOTE | 2020-10-17 18:16 | NUR ---
Problems reprioritized. Patient report given, questions answered & plan of care reviewed with Anika PEARSON.
--- NOTE | 2020-10-17 18:50 | NUR ---
Patient in room ORTHO 4016. I have received report from JAMIE PEARSON and had the opportunity to ask questions and assume patient care.
[2020-10-17 19:05] LABS: TOTAL PROTEIN,URINE RANDOM 327.9 MG/DL
[2020-10-17] MEDS: traZODone 50mg tablet PO SCH (20:45)
[2020-10-17] MEDS: finasteride 5mg tablet PO SCH (20:45)
[2020-10-17 22:00] VITALS: BP 109/49
[2020-10-18] MEDS: oxyCODONE IR 5mg (immed. release) tablet PO PRN ×3 (05:40→14:10)
--- NOTE | 2020-10-18 06:15 | NUR ---
Patient in room ORTHO 4016. I have received report from Anika PEARSON and had the opportunity to ask questions and assume patient care.
[2020-10-18 06:18] VITALS: BP 92/52
--- NOTE | 2020-10-18 06:25 | NUR ---
Problems reprioritized. Patient report given, questions answered & plan of care reviewed with Alessandra PEARSON.
[2020-10-18 06:29] LABS: BASOPHILS % (AUTO) 0.4 % (0-1); EOSINOPHILS # (AUTO) 0.2 X10'3 (0-0.9); HEMATOCRIT 24.6 % (42.0-52.0); HEMOGLOBIN 8.2 g/dl (14.0-17.9); LYMPHOCYTES # (AUTO) 0.3 X10'3 (1.1-4.8); LYMPHOCYTES % (AUTO) 6.5 % (21-51); MEAN CORPUSCULAR HGB CONC 33.5 g/dL (33.0-36.5); MEAN CORPUSCULAR VOLUME 101.5 FL (78-98); MEAN PLATELET VOLUME 9.5 FL (7.4-10.4); MONOCYTES # (AUTO) 0.7 X10'3 (0-0.9); MONOCYTES % (AUTO) 12.6 % (2-12); NEUTROPHILS # (AUTO) 4.1 X10'3 (1.8-7.7); NEUTROPHILS % (AUTO) 76.5 % (42-75); PLATELET COUNT 237 X10'3 (140-440); RED BLOOD COUNT 2.42 X10'6 (4.70-6.10); RED CELL DISTRIBUTION WIDTH 14.6 % (11.5-14.5); WHITE BLOOD COUNT 5.3 X10'3 (4.5-11.0)
[2020-10-18 06:36] LABS: ALANINE AMINOTRANSFERASE 91 U/L (12-78); ALBUMIN/GLOBULIN RATIO 0.5 (1.1-1.5); ALKALINE PHOSPHATASE 396 IU/L (46-116); ANION GAP 9 (8-16); ASPARTATE AMINO TRANSFERASE 108 U/L (10-37); BILIRUBIN,TOTAL 0.7 MG/DL (0.1-1.0); BLOOD UREA NITROGEN 54 MG/DL (7-18); BUN/CREATININE RATIO 16.7 (5.4-32.0); CHLORIDE 105 MMOL/L (99-107); CREATININE 3.23 MG/DL (0.60-1.10); GLUCOSE 108 MG/DL (70-104); MAGNESIUM 1.7 MG/DL (1.5-2.4); POTASSIUM 3.7 MMOL/L (3.5-5.1); SODIUM 144 MMOL/L (135-145); TOTAL CARBON DIOXIDE 30.4 MMOL/L (24-32); TOTAL PROTEIN 6.1 G/DL (6.4-8.2); eGFR 19 ML/MIN
[2020-10-18] MEDS: levoTHYROXINE 75mcg tablet PO SCH (07:02)
[2020-10-18] MEDS: lactobacillus rhamnosus 10,000 MMU CELLS/CAPSULE PO SCH ×2 (07:02→20:10)
[2020-10-18] MEDS: atorvastatin 20mg tablet PO SCH (07:02)
[2020-10-18] MEDS: duloxetine 30mg CAPSULE.DR PO SCH ×2 (07:02→20:11)
[2020-10-18] MEDS: furosemide 40mg/4ml inj IV SCH ×2 (07:02→20:10)
[2020-10-18] MEDS: heparin, porcine 5000 units/ml vial SQ SCH ×2 (07:03→20:11)
[2020-10-18] MEDS: NUT.TX.IMP.RENAL FXN,LAC-REDUC (Nepro) 237 ML VANILLA PO SCH ×3 (08:09→18:00)
[2020-10-18] MEDS: morphine 2 MG/ML inj. syringe IV PRN ×3 (08:25→20:12)
[2020-10-18 09:44] VITALS: BP 121/59
--- NOTE | 2020-10-18 17:56 | NUR ---
Went to give pain medications to patient and he did not want any at this time. Pain is a 2/10.
[2020-10-18 18:00] VITALS: BP 143/66
--- NOTE | 2020-10-18 18:21 | NUR ---
Problems reprioritized. Patient report given, questions answered & plan of care reviewed with Toña PEARSON.
[2020-10-18] MEDS: traZODone 50mg tablet PO SCH (20:11)
[2020-10-18] MEDS: finasteride 5mg tablet PO SCH (20:13)
[2020-10-18 22:00] VITALS: BP 117/60
[2020-10-19] MEDS: oxyCODONE IR 5mg (immed. release) tablet PO PRN ×3 (04:13→15:20)
--- NOTE | 2020-10-19 06:00 | NUR ---
Report to Alessandra PEARSON
[2020-10-19 06:26] VITALS: BP 112/65
--- NOTE | 2020-10-19 06:27 | NUR ---
Patient in room ORTHO 4016. I have received report from Toña PEARSON and had the opportunity to ask questions and assume patient care.
[2020-10-19 06:44] LABS: ALANINE AMINOTRANSFERASE 88 U/L (12-78); ALBUMIN/GLOBULIN RATIO 0.5 (1.1-1.5); ALKALINE PHOSPHATASE 389 IU/L (46-116); ANION GAP 9 (8-16); ASPARTATE AMINO TRANSFERASE 109 U/L (10-37); BILIRUBIN,TOTAL 0.7 MG/DL (0.1-1.0); BLOOD UREA NITROGEN 60 MG/DL (7-18); BUN/CREATININE RATIO 19.7 (5.4-32.0); CALCIUM 9.8 MG/DL (8.5-10.1); CHLORIDE 104 MMOL/L (99-107); CREATININE 3.05 MG/DL (0.60-1.10); GLUCOSE 117 MG/DL (70-104); POTASSIUM 3.3 MMOL/L (3.5-5.1); SODIUM 144 MMOL/L (135-145); TOTAL CARBON DIOXIDE 31.5 MMOL/L (24-32); TOTAL PROTEIN 6.2 G/DL (6.4-8.2); eGFR 20 ML/MIN
[2020-10-19] MEDS: duloxetine 30mg CAPSULE.DR PO SCH ×2 (07:27→20:25)
[2020-10-19] MEDS: lactobacillus rhamnosus 10,000 MMU CELLS/CAPSULE PO SCH ×2 (07:27→20:26)
[2020-10-19] MEDS: atorvastatin 20mg tablet PO SCH (07:27)
[2020-10-19] MEDS: levoTHYROXINE 75mcg tablet PO SCH (07:28)
[2020-10-19] MEDS: furosemide 40mg/4ml inj IV SCH ×2 (07:28→20:29)
[2020-10-19] MEDS: heparin, porcine 5000 units/ml vial SQ SCH ×2 (07:28→20:30)
[2020-10-19] MEDS: NUT.TX.IMP.RENAL FXN,LAC-REDUC (Nepro) 237 ML VANILLA PO SCH ×3 (08:18→18:00)
[2020-10-19 09:40] VITALS: BP 108/60
--- NOTE | 2020-10-19 10:24 | NUR ---
Page Sent promotional table spacer PAGER ID: [phone] MESSAGE: [phone] William, can I get some oral nystatin? he has oral thrush pretty badly. Thanks, Alessandra ext [phone]
[2020-10-19] MEDS ORDERED: LIDOcaine 1%/PF 5ML 10 MG/ML VIAL ONE (10:28)
--- NOTE | 2020-10-19 10:37 | NUR ---
Provided patient with a geomat for sitting in the chair to relieve pressure.
--- NOTE | 2020-10-19 11:13 | NUR ---
Sandro Muro PARTS ASSEMBLER in to remove TDC. Patient tolerated procedure well. Pressure dressing applied to insertion site and needs to stay in place for 48 hours. Will monitor patient for any s/s of bleeding or shortness of breath for the next couple of hours. Resting in a semi fowlers position on his right side at this time.
--- NOTE | 2020-10-19 13:25 | NUR ---
Patient has reached his time necessary for lying flat okay to eat lunch. Occlusive dressings are clean dry and intact. No shortness of breath at this time and not complaining of any pain.
[2020-10-19] MEDS: nystatin 500,000 unit/5ML UD oral suspension PO SCH ×2 (15:20→20:42)
--- NOTE | 2020-10-19 15:29 | NUR ---
Upon my assessment this morning I found the patient to have oral thrush. Oral nystatin ordered and vigorous oral care was provided and first dose of swish and spit given. PT has patient up in the chair. Will get back to bed within the next hour due to the fact that patient has a spot of breakdown to the left buttock assumed to be from sitting up in the chair.
[2020-10-19] MEDS ORDERED: potassium Cl 20 mEq SR tablet PO PRN (16:20)
[2020-10-19] MEDS ORDERED: magnesium Cl slow-release 64mg tablet PO PRN (16:20)
[2020-10-19] MEDS ORDERED: potassium Cl 40MEQ/1/2NS 520ml 520 ML IV PRN (16:20)
[2020-10-19] MEDS ORDERED: magnesium 4gm in 100ml NS 100 ML IV PRN (16:20)
[2020-10-19] MEDS ORDERED: SODIUM CHLORIDE 0.45% IV ONE (16:29)
[2020-10-19] MEDS ORDERED: POTASSIUM CL IV ONE (16:29)
--- NOTE | 2020-10-19 16:30 | NUR ---
Patient placed back in bed from the chair to relieve pressure from his left gluteus.
--- NOTE | 2020-10-19 16:31 | NUR ---
Reassessment: Pt PO intake at meals averages 25% on a renal diet with one refusal since 10/17, and PO intake of Nepro averages 75-100%. Pt partially meeting estimated nutrient needs at this time. Per MD note, dialysis being held. Last BM 10/17 with PRN dulcolax available. Will continue to monitor for further intervention. Recommendations: 1) Continue renal diet, MM5 texture modifications per MANAGER FREELANCE recs; encourage PO 2) Nepro TIDWM; Encourage PO intake 3) Routine bowel care 4) Wts with HD Addendum: 10/19/20 at [address] Amended: Links added. Addendum: 10/19/20 at [address] I have reviewed and agree with note by human resource internship. Rosanna Iqbal RD
[2020-10-19] MEDS ORDERED: potassium Cl 20mEq/100mL bag 100 ML IV ONE (16:35)
[2020-10-19 18:00] VITALS: BP 98/59
--- NOTE | 2020-10-19 18:28 | NUR ---
Problems reprioritized. Patient report given, questions answered & plan of care reviewed with Toña PEARSON.
[2020-10-19] MEDS: K and/or MAG REPLACEMENT MC SCH (20:00)
[2020-10-19] MEDS: traZODone 50mg tablet PO SCH (20:27)
[2020-10-19] MEDS: finasteride 5mg tablet PO SCH (20:28)
[2020-10-19] MEDS ORDERED: nystatin 500,000 unit/5ML UD oral suspension PO SCH (21:00)
--- NOTE | 2020-10-19 21:20 | NUR ---
Received call from [employer] patient had tele lead off. During assessment of tele leads discovered patient had also removed dressing from tunnel catheter removal today to [facility] which was to stay in place for 48hrs. No drainage noted at tunnel cath site to [facility]. New dressing was placed of 4x4 with op-site over. Tele lead was also replaced at this time AYLEEN. Primary care nurse notified of this finding.
[2020-10-19 22:00] VITALS: BP 115/53
[2020-10-20] MEDS: oxyCODONE IR 5mg (immed. release) tablet PO PRN ×3 (01:56→15:42)
[2020-10-20 06:00] VITALS: BP 121/47
--- NOTE | 2020-10-20 06:01 | NUR ---
Report to Nuria Ferreira
[2020-10-20 06:51] LABS: ALANINE AMINOTRANSFERASE 78 U/L (12-78); ALBUMIN 2.1 G/DL (3.4-5.0); ALBUMIN/GLOBULIN RATIO 0.5 (1.1-1.5); ALKALINE PHOSPHATASE 382 IU/L (46-116); ANION GAP 8 (8-16); ASPARTATE AMINO TRANSFERASE 95 U/L (10-37); BILIRUBIN,TOTAL 0.7 MG/DL (0.1-1.0); BLOOD UREA NITROGEN 63 MG/DL (7-18); CALCIUM 10.3 MG/DL (8.5-10.1); CHLORIDE 103 MMOL/L (99-107); CREATININE 2.74 MG/DL (0.60-1.10); GLUCOSE 118 MG/DL (70-104); MAGNESIUM 1.7 MG/DL (1.5-2.4); POTASSIUM 3.3 MMOL/L (3.5-5.1); SODIUM 143 MMOL/L (135-145); TOTAL CARBON DIOXIDE 32.1 MMOL/L (24-32); TOTAL PROTEIN 6.6 G/DL (6.4-8.2); eGFR 22 ML/MIN
[2020-10-20] MEDS: lactobacillus rhamnosus 10,000 MMU CELLS/CAPSULE PO SCH ×2 (07:49→20:28)
[2020-10-20] MEDS: levoTHYROXINE 75mcg tablet PO SCH (07:49)
[2020-10-20] MEDS: duloxetine 30mg CAPSULE.DR PO SCH ×2 (07:51→20:29)
[2020-10-20] MEDS: atorvastatin 20mg tablet PO SCH (07:51)
[2020-10-20] MEDS: furosemide 40mg/4ml inj IV SCH ×2 (07:52→20:28)
[2020-10-20] MEDS: nystatin 500,000 unit/5ML UD oral suspension PO SCH ×3 (07:52→20:35)
[2020-10-20] MEDS: heparin, porcine 5000 units/ml vial SQ SCH ×2 (07:53→20:29)
[2020-10-20] MEDS: K and/or MAG REPLACEMENT MC SCH ×2 (07:53→20:00)
[2020-10-20] MEDS: NUT.TX.IMP.RENAL FXN,LAC-REDUC (Nepro) 237 ML VANILLA PO SCH ×3 (08:02→17:46)
[2020-10-20] MEDS ORDERED: POTASSIUM BICARBONATE/CIT AC 10 MEQ TABLET.EFF PO ONE (08:10)
[2020-10-20] MEDS: morphine 2 MG/ML inj. syringe IV PRN (09:45)
[2020-10-20 10:00] VITALS: BP 109/52
[2020-10-20] MEDS: ondansetron/PF 4mg/2ml inj IV PRN (15:42)
[2020-10-20 18:00] VITALS: BP 127/62
--- NOTE | 2020-10-20 18:30 | NUR ---
Report from Nuria PEARSON
[2020-10-20] MEDS: finasteride 5mg tablet PO SCH (20:28)
[2020-10-20] MEDS: POTASSIUM BICARBONATE/CIT AC 10 MEQ TABLET.EFF PO SCH (20:29)
[2020-10-20] MEDS: traZODone 50mg tablet PO SCH (20:29)
[2020-10-20 22:00] VITALS: BP 102/51
[2020-10-21] MEDS: POTASSIUM BICARBONATE/CIT AC 10 MEQ TABLET.EFF PO SCH ×2 (00:35→04:00)
[2020-10-21 06:00] VITALS: BP 112/59
--- NOTE | 2020-10-21 06:24 | NUR ---
Report to Nuria PEARSON
[2020-10-21 07:52] LABS: ALANINE AMINOTRANSFERASE 79 U/L (12-78); ALBUMIN 2.4 G/DL (3.4-5.0); ALBUMIN/GLOBULIN RATIO 0.5 (1.1-1.5); ALKALINE PHOSPHATASE 395 IU/L (46-116); ANION GAP 11 (8-16); ASPARTATE AMINO TRANSFERASE 101 U/L (10-37); BILIRUBIN,TOTAL 0.8 MG/DL (0.1-1.0); BLOOD UREA NITROGEN 64 MG/DL (7-18); BUN/CREATININE RATIO 25.2 (5.4-32.0); CALCIUM 10.5 MG/DL (8.5-10.1); CHLORIDE 100 MMOL/L (99-107); CREATININE 2.54 MG/DL (0.60-1.10); GLUCOSE 107 MG/DL (70-104); MAGNESIUM 1.7 MG/DL (1.5-2.4); POTASSIUM 3.7 MMOL/L (3.5-5.1); SODIUM 142 MMOL/L (135-145); TOTAL CARBON DIOXIDE 31.3 MMOL/L (24-32); TOTAL PROTEIN 7.7 G/DL (6.4-8.2); eGFR 25 ML/MIN
[2020-10-21] MEDS: nystatin 500,000 unit/5ML UD oral suspension PO SCH ×3 (08:06→21:00)
[2020-10-21] MEDS: NUT.TX.IMP.RENAL FXN,LAC-REDUC (Nepro) 237 ML VANILLA PO SCH ×3 (08:06→17:42)
[2020-10-21] MEDS: duloxetine 30mg CAPSULE.DR PO SCH ×2 (08:07→20:00)
[2020-10-21] MEDS: lactobacillus rhamnosus 10,000 MMU CELLS/CAPSULE PO SCH ×2 (08:07→20:00)
[2020-10-21] MEDS: atorvastatin 20mg tablet PO SCH (08:07)
[2020-10-21] MEDS: levoTHYROXINE 75mcg tablet PO SCH (08:07)
[2020-10-21] MEDS: furosemide 40mg/4ml inj IV SCH ×2 (08:07→20:00)
[2020-10-21] MEDS: K and/or MAG REPLACEMENT MC SCH ×2 (08:08→20:00)
[2020-10-21] MEDS: heparin, porcine 5000 units/ml vial SQ SCH ×2 (08:08→20:00)
[2020-10-21] MEDS: oxyCODONE IR 5mg (immed. release) tablet PO PRN ×2 (08:59→09:04)
[2020-10-21 10:00] VITALS: BP 98/59
[2020-10-21] MEDS ORDERED: LIDOcaine 2% 5ml jelly TOP ONE (15:35)
--- NOTE | 2020-10-21 16:35 | NUR ---
WOUNDS ON RIGHT AXILLA AND LEFT KNEE WITH BLACK ESCHAR, SEEN BY DR TRUJILLO. WOUND DEBRIDEMENT ON RIGHT AXILLA AND LEFT KNEE DONE BY DR TRUJILLO. NO BLEEDING FROM THE AREA, AREA OF GRANULATION AFTER DEBRIDEMENT ON BOTH RIGHT AXILLA AND LEFT KNEE WOUNDS. XEROFORM DRESSING APPLIED.
[2020-10-21 17:00] VITALS: BP 131/63
--- NOTE | 2020-10-21 18:30 | NUR ---
Patient in room ORTHO 4016. I have received report from MICHEL Quiñones and had the opportunity to ask questions and assume patient care.
[2020-10-21] MEDS: traZODone 50mg tablet PO SCH (21:00)
[2020-10-21] MEDS: finasteride 5mg tablet PO SCH (21:00)
[2020-10-21 22:00] VITALS: BP 107/64
[2020-10-22 06:00] VITALS: BP 134/70
--- NOTE | 2020-10-22 06:20 | NUR ---
Problems reprioritized. Patient report given, questions answered & plan of care reviewed with MICHEL Quiñones.
[2020-10-22 07:19] LABS: ALANINE AMINOTRANSFERASE 69 U/L (12-78); ALBUMIN 2.4 G/DL (3.4-5.0); ALBUMIN/GLOBULIN RATIO 0.5 (1.1-1.5); ALKALINE PHOSPHATASE 358 IU/L (46-116); ANION GAP 7 (8-16); ASPARTATE AMINO TRANSFERASE 80 U/L (10-37); BILIRUBIN,TOTAL 0.7 MG/DL (0.1-1.0); BLOOD UREA NITROGEN 60 MG/DL (7-18); BUN/CREATININE RATIO 26.5 (5.4-32.0); CALCIUM 10.2 MG/DL (8.5-10.1); CHLORIDE 100 MMOL/L (99-107); CREATININE 2.26 MG/DL (0.60-1.10); GLUCOSE 106 MG/DL (70-104); MAGNESIUM 1.7 MG/DL (1.5-2.4); POTASSIUM 3.1 MMOL/L (3.5-5.1); SODIUM 144 MMOL/L (135-145); TOTAL CARBON DIOXIDE 36.6 MMOL/L (24-32); TOTAL PROTEIN 7.5 G/DL (6.4-8.2); eGFR 28 ML/MIN
[2020-10-22] MEDS: nystatin 500,000 unit/5ML UD oral suspension PO SCH ×3 (07:45→20:54)
[2020-10-22] MEDS: furosemide 40mg/4ml inj IV SCH ×2 (07:45→20:54)
[2020-10-22] MEDS: NUT.TX.IMP.RENAL FXN,LAC-REDUC (Nepro) 237 ML VANILLA PO SCH ×3 (07:45→18:00)
[2020-10-22] MEDS: duloxetine 30mg CAPSULE.DR PO SCH ×2 (07:46→20:55)
[2020-10-22] MEDS: atorvastatin 20mg tablet PO SCH (07:46)
[2020-10-22] MEDS: levoTHYROXINE 75mcg tablet PO SCH (07:46)
[2020-10-22] MEDS: lactobacillus rhamnosus 10,000 MMU CELLS/CAPSULE PO SCH ×2 (07:46→20:55)
[2020-10-22] MEDS: heparin, porcine 5000 units/ml vial SQ SCH ×2 (07:47→20:54)
[2020-10-22] MEDS: K and/or MAG REPLACEMENT MC SCH ×3 (08:49→21:00)
[2020-10-22] MEDS: potassium Cl 20 mEq SR tablet PO PRN ×4 (09:11→23:10)
[2020-10-22 10:00] VITALS: BP 94/57
[2020-10-22] MEDS: bisacodyl 10mg suppository rectal RC PRN (10:32)
--- NOTE | 2020-10-22 14:00 | NUR ---
PIV ON LEFT AC DISCONTINUED CATHETER INTACT
--- NOTE | 2020-10-22 14:54 | NUR ---
Reassessment: Pt PO intake at meals avg 25-50% at meals on a renal diet, PO intake of Nepro TIDWM is 100%; mostly meeting estimated nutrient needs. HD has been discontinued. Last BM 10/17, received PRN dulcolax suppository today. Will continue to monitor for further intervention. Recommendations: 1) Continue renal diet, MM5 texture modifications per MATERNITY NURSE recs; encourage PO 2) Nepro TIDWM; Encourage PO intake 3) Routine bowel care 4) Weekly wts Addendum: 10/22/20 at [address] Amended: Links added. Addendum: 10/22/20 at [address] I have reviewed and agree with note by Assistant Professor Of Mathematics. Rosanna Iqbal RD
[2020-10-22] MEDS ORDERED: potassium Cl 20 mEq SR tablet PO PRN (17:20)
[2020-10-22] MEDS ORDERED: potassium Cl 40MEQ/1/2NS 520ml 520 ML IV PRN (17:20)
[2020-10-22] MEDS ORDERED: magnesium Cl slow-release 64mg tablet PO PRN (17:20)
[2020-10-22] MEDS ORDERED: magnesium 4gm in 100ml NS 100 ML IV PRN (17:20)
[2020-10-22 18:00] VITALS: BP 124/65
--- NOTE | 2020-10-22 18:43 | NUR ---
Patient in room ORTHO 4016. I have received report from CLARITY RN and had the opportunity to ask questions and assume patient care.
[2020-10-22] MEDS: traZODone 50mg tablet PO SCH (20:55)
[2020-10-22] MEDS: finasteride 5mg tablet PO SCH (20:55)
[2020-10-22 22:00] VITALS: BP 127/69
[2020-10-23] MEDS: potassium Cl 20 mEq SR tablet PO PRN (03:58)
[2020-10-23 06:00] VITALS: BP 149/71
--- NOTE | 2020-10-23 06:26 | NUR ---
Problems reprioritized. Patient report given, questions answered & plan of care reviewed with CLARITY RN.
[2020-10-23 07:00] VITALS: BP_SYST 129; BP_SYST 66; BP_SYST 88; BP_DIAS 34; BP_DIAS 50; BP_DIAS 64
[2020-10-23] MEDS: lactobacillus rhamnosus 10,000 MMU CELLS/CAPSULE PO SCH ×2 (07:52→19:21)
[2020-10-23] MEDS: duloxetine 30mg CAPSULE.DR PO SCH ×2 (07:52→19:21)
[2020-10-23] MEDS: atorvastatin 20mg tablet PO SCH (07:52)
[2020-10-23] MEDS: levoTHYROXINE 75mcg tablet PO SCH (07:52)
[2020-10-23] MEDS: nystatin 500,000 unit/5ML UD oral suspension PO SCH ×3 (07:52→21:00)
[2020-10-23] MEDS: heparin, porcine 5000 units/ml vial SQ SCH ×2 (07:53→19:22)
[2020-10-23] MEDS: NUT.TX.IMP.RENAL FXN,LAC-REDUC (Nepro) 237 ML VANILLA PO SCH ×3 (08:00→19:00)
[2020-10-23] MEDS: K and/or MAG REPLACEMENT MC SCH ×4 (08:00→20:00)
[2020-10-23 08:06] LABS: MAGNESIUM 1.6 MG/DL (1.5-2.4); POTASSIUM 3.7 MMOL/L (3.5-5.1)
--- NOTE | 2020-10-23 08:30 | NUR ---
DR DOAN NOTIFIED OF ORTHOSTATIC PRESSURE AND ALSO INFORMED HIM THAT I HELD THE LASIX AM DOSE.
--- NOTE | 2020-10-23 09:00 | NUR ---
SEEN BY DR DOAN, LASIX DOSE ADJUSTED
[2020-10-23 10:00] VITALS: BP 123/59
[2020-10-23 10:06] LABS: BASOPHILS % (AUTO) 0.7 % (0-1); EOSINOPHILS # (AUTO) 0.1 X10'3 (0-0.9); EOSINOPHILS % (AUTO) 2.6 % (0-6); HEMATOCRIT 29.2 % (42.0-52.0); HEMOGLOBIN 9.7 g/dl (14.0-17.9); LYMPHOCYTES # (AUTO) 0.5 X10'3 (1.1-4.8); LYMPHOCYTES % (AUTO) 10.1 % (21-51); MEAN CORPUSCULAR HEMOGLOBIN 33.2 PG (27.0-31.0); MEAN CORPUSCULAR HGB CONC 33.1 g/dL (33.0-36.5); MEAN CORPUSCULAR VOLUME 100.2 FL (78-98); MEAN PLATELET VOLUME 9.5 FL (7.4-10.4); MONOCYTES # (AUTO) 0.7 X10'3 (0-0.9); NEUTROPHILS # (AUTO) 3.7 X10'3 (1.8-7.7); NEUTROPHILS % (AUTO) 73.6 % (42-75); PLATELET COUNT 400 X10'3 (140-440); RED BLOOD COUNT 2.92 X10'6 (4.70-6.10); RED CELL DISTRIBUTION WIDTH 14.9 % (11.5-14.5)
[2020-10-23 10:22] LABS: ALANINE AMINOTRANSFERASE 59 U/L (12-78); ALBUMIN 2.4 G/DL (3.4-5.0); ALBUMIN/GLOBULIN RATIO 0.5 (1.1-1.5); ALKALINE PHOSPHATASE 301 IU/L (46-116); ANION GAP 9 (8-16); ASPARTATE AMINO TRANSFERASE 68 U/L (10-37); BILIRUBIN,TOTAL 0.6 MG/DL (0.1-1.0); BLOOD UREA NITROGEN 59 MG/DL (7-18); BUN/CREATININE RATIO 28.8 (5.4-32.0); CHLORIDE 100 MMOL/L (99-107); CREATININE 2.05 MG/DL (0.60-1.10); GLUCOSE 104 MG/DL (70-104); SODIUM 143 MMOL/L (135-145); TOTAL CARBON DIOXIDE 34.1 MMOL/L (24-32); TOTAL PROTEIN 7.1 G/DL (6.4-8.2); eGFR 31 ML/MIN
[2020-10-23 18:00] VITALS: BP 148/75
[2020-10-23] MEDS: traZODone 50mg tablet PO SCH (21:00)
[2020-10-23] MEDS: finasteride 5mg tablet PO SCH (21:00)
[2020-10-23 22:00] VITALS: BP 132/77
[2020-10-24] VITALS (7 sets, daily range): BP systolic 105–144; BP diastolic 59–81
[2020-10-24] MEDS: oxyCODONE IR 5mg (immed. release) tablet PO PRN ×2 (02:25→10:54)
--- NOTE | 2020-10-24 06:40 | NUR ---
Problems reprioritized. Patient report given, questions answered & plan of care reviewed with LAURA PEARSON.
[2020-10-24 07:12] LABS: BASOPHILS % (AUTO) 0.4 % (0-1); EOSINOPHILS # (AUTO) 0.1 X10'3 (0-0.9); EOSINOPHILS % (AUTO) 2.5 % (0-6); HEMATOCRIT 29.3 % (42.0-52.0); HEMOGLOBIN 9.5 g/dl (14.0-17.9); LYMPHOCYTES # (AUTO) 0.5 X10'3 (1.1-4.8); LYMPHOCYTES % (AUTO) 10.2 % (21-51); MEAN CORPUSCULAR HEMOGLOBIN 32.8 PG (27.0-31.0); MEAN CORPUSCULAR HGB CONC 32.6 g/dL (33.0-36.5); MEAN CORPUSCULAR VOLUME 100.5 FL (78-98); MEAN PLATELET VOLUME 9.4 FL (7.4-10.4); MONOCYTES # (AUTO) 0.6 X10'3 (0-0.9); MONOCYTES % (AUTO) 13.3 % (2-12); NEUTROPHILS # (AUTO) 3.6 X10'3 (1.8-7.7); NEUTROPHILS % (AUTO) 73.6 % (42-75); PLATELET COUNT 401 X10'3 (140-440); RED BLOOD COUNT 2.91 X10'6 (4.70-6.10); RED CELL DISTRIBUTION WIDTH 14.4 % (11.5-14.5); WHITE BLOOD COUNT 4.9 X10'3 (4.5-11.0)
[2020-10-24 07:21] LABS: ALBUMIN 2.2 G/DL (3.4-5.0); ALBUMIN/GLOBULIN RATIO 0.5 (1.1-1.5); ANION GAP 9 (8-16); ASPARTATE AMINO TRANSFERASE 62 U/L (10-37); BILIRUBIN,TOTAL 0.5 MG/DL (0.1-1.0); BLOOD UREA NITROGEN 51 MG/DL (7-18); BUN/CREATININE RATIO 27.9 (5.4-32.0); CALCIUM 9.7 MG/DL (8.5-10.1); CHLORIDE 102 MMOL/L (99-107); CREATININE 1.83 MG/DL (0.60-1.10); GLUCOSE 104 MG/DL (70-104); POTASSIUM 3.2 MMOL/L (3.5-5.1); SODIUM 145 MMOL/L (135-145); TOTAL CARBON DIOXIDE 33.6 MMOL/L (24-32); TOTAL PROTEIN 6.5 G/DL (6.4-8.2); eGFR 36 ML/MIN
[2020-10-24 07:22] LABS: ALANINE AMINOTRANSFERASE 62 U/L (12-78); ALKALINE PHOSPHATASE 266 IU/L (46-116)
[2020-10-24] MEDS ORDERED: furosemide 40mg/4ml inj IV SCH (08:00)
[2020-10-24] MEDS: K and/or MAG REPLACEMENT MC SCH ×4 (08:00→20:00)
[2020-10-24] MEDS: atorvastatin 20mg tablet PO SCH (08:44)
[2020-10-24] MEDS: duloxetine 30mg CAPSULE.DR PO SCH ×2 (08:44→20:28)
[2020-10-24] MEDS: lactobacillus rhamnosus 10,000 MMU CELLS/CAPSULE PO SCH ×2 (08:44→20:28)
[2020-10-24] MEDS: levoTHYROXINE 75mcg tablet PO SCH (08:44)
[2020-10-24] MEDS: heparin, porcine 5000 units/ml vial SQ SCH ×2 (08:45→20:29)
[2020-10-24] MEDS: NUT.TX.IMP.RENAL FXN,LAC-REDUC (Nepro) 237 ML VANILLA PO SCH ×3 (08:53→18:00)
[2020-10-24] MEDS: nystatin 500,000 unit/5ML UD oral suspension PO SCH ×3 (08:58→20:47)
[2020-10-24] MEDS: potassium Cl 20 mEq SR tablet PO PRN ×2 (08:59→18:35)
--- NOTE | 2020-10-24 15:44 | NUR ---
PAGER ID: [phone] MESSAGE: LAURA KNUTSON [phone] RE: Doni Thomas [phone]. Supine BP 127/81 HR 84. Sitting BP 105/67 HR 87. Pt unable to stand. Thank you.
--- NOTE | 2020-10-24 18:38 | NUR ---
Problems reprioritized. Patient report given, questions answered & plan of care reviewed with Dnona PEARSON.
[2020-10-24] MEDS: finasteride 5mg tablet PO SCH (20:47)
[2020-10-24] MEDS: traZODone 50mg tablet PO SCH (20:47)
--- NOTE | 2020-10-25 06:41 | NUR ---
Patient in room ORTHO 4016. I have received report from Bhargavi PEARSON and had the opportunity to ask questions and assume patient care.
[2020-10-25 06:49] LABS: BASOPHILS % (AUTO) 0.6 % (0-1); EOSINOPHILS # (AUTO) 0.1 X10'3 (0-0.9); HEMATOCRIT 28.3 % (42.0-52.0); HEMOGLOBIN 9.5 g/dl (14.0-17.9); LYMPHOCYTES # (AUTO) 0.6 X10'3 (1.1-4.8); LYMPHOCYTES % (AUTO) 11.1 % (21-51); MEAN CORPUSCULAR HEMOGLOBIN 33.2 PG (27.0-31.0); MEAN CORPUSCULAR HGB CONC 33.5 g/dL (33.0-36.5); MEAN CORPUSCULAR VOLUME 99.3 FL (78-98); MEAN PLATELET VOLUME 9.4 FL (7.4-10.4); MONOCYTES # (AUTO) 0.7 X10'3 (0-0.9); MONOCYTES % (AUTO) 11.9 % (2-12); NEUTROPHILS # (AUTO) 4.3 X10'3 (1.8-7.7); NEUTROPHILS % (AUTO) 74.4 % (42-75); PLATELET COUNT 423 X10'3 (140-440); RED BLOOD COUNT 2.85 X10'6 (4.70-6.10); RED CELL DISTRIBUTION WIDTH 14.5 % (11.5-14.5); WHITE BLOOD COUNT 5.8 X10'3 (4.5-11.0)
[2020-10-25 07:00] VITALS: BP 155/74
[2020-10-25 07:20] LABS: ALANINE AMINOTRANSFERASE 51 U/L (12-78); ALBUMIN 2.5 G/DL (3.4-5.0); ALBUMIN/GLOBULIN RATIO 0.5 (1.1-1.5); ALKALINE PHOSPHATASE 269 IU/L (46-116); ANION GAP 8 (8-16); ASPARTATE AMINO TRANSFERASE 59 U/L (10-37); BILIRUBIN,TOTAL 0.8 MG/DL (0.1-1.0); BLOOD UREA NITROGEN 48 MG/DL (7-18); BUN/CREATININE RATIO 27.4 (5.4-32.0); CALCIUM 9.9 MG/DL (8.5-10.1); CHLORIDE 103 MMOL/L (99-107); CREATININE 1.75 MG/DL (0.60-1.10); GLUCOSE 104 MG/DL (70-104); POTASSIUM 3.5 MMOL/L (3.5-5.1); SODIUM 144 MMOL/L (135-145); TOTAL PROTEIN 7.1 G/DL (6.4-8.2); eGFR 38 ML/MIN
[2020-10-25] MEDS: levoTHYROXINE 75mcg tablet PO SCH (07:22)
[2020-10-25] MEDS: lactobacillus rhamnosus 10,000 MMU CELLS/CAPSULE PO SCH ×2 (07:22→20:57)
[2020-10-25] MEDS: duloxetine 30mg CAPSULE.DR PO SCH ×2 (07:23→20:57)
[2020-10-25] MEDS: atorvastatin 20mg tablet PO SCH (07:23)
[2020-10-25] MEDS: oxyCODONE IR 5mg (immed. release) tablet PO PRN ×3 (07:24→17:39)
[2020-10-25] MEDS: heparin, porcine 5000 units/ml vial SQ SCH ×2 (07:25→20:57)
[2020-10-25] MEDS: NUT.TX.IMP.RENAL FXN,LAC-REDUC (Nepro) 237 ML VANILLA PO SCH ×3 (08:00→18:00)
[2020-10-25] MEDS: nystatin 500,000 unit/5ML UD oral suspension PO SCH ×3 (08:00→20:59)
[2020-10-25] MEDS: K and/or MAG REPLACEMENT MC SCH ×4 (08:00→20:00)
[2020-10-25 10:28] VITALS: BP_SYST 123; BP_SYST 97; BP_DIAS 66; BP_DIAS 70
[2020-10-25 11:00] VITALS: BP 113/68
--- NOTE | 2020-10-25 15:10 | NUR ---
F/u 10/25: Pt PO continues to fluctuate though slightly improving ~50% of meals w/ occasional refusals and 75-100% avg Nepro TIDWM consuming roughly ~1950kcals and 85g protein/day meeting minimum protein needs and partially meeting kcal needs. AYAH d/w RN regarding diet liberalization to heart healthy from renal given legal paraprofessional recommendation in EMR now that pt off HD and given decreased PO meals if MD agreeable. LBM 10/24. Will continue to monitor for additional protein/kcal needs. Recommendations: 1) Continue renal diet, MM5 texture modifications per OCCUPATIONAL HEALTH PROFESSIONAL recs; encourage PO 2) Nepro TIDWM; Encourage PO intake 3) Routine bowel care 4) Weekly wts Addendum: 10/25/20 at [address] Amended: Links added.
[2020-10-25 17:00] VITALS: BP 127/67
--- NOTE | 2020-10-25 18:19 | NUR ---
Problems reprioritized. Patient report given, questions answered & plan of care reviewed with Theresa PEARSON.
[2020-10-25 20:00] VITALS: BP 124/69
[2020-10-25] MEDS: traZODone 50mg tablet PO SCH (20:57)
[2020-10-25] MEDS: finasteride 5mg tablet PO SCH (20:57)
[2020-10-25 22:00] VITALS: BP 124/69
[2020-10-26] MEDS: oxyCODONE IR 5mg (immed. release) tablet PO PRN ×3 (04:10→14:17)
[2020-10-26 06:00] VITALS: BP 112/61
[2020-10-26 06:09] LABS: BASOPHILS % (AUTO) 0.5 % (0-1); EOSINOPHILS # (AUTO) 0.1 X10'3 (0-0.9); EOSINOPHILS % (AUTO) 2.1 % (0-6); HEMATOCRIT 30.8 % (42.0-52.0); LYMPHOCYTES # (AUTO) 0.6 X10'3 (1.1-4.8); LYMPHOCYTES % (AUTO) 9.9 % (21-51); MEAN CORPUSCULAR HEMOGLOBIN 32.7 PG (27.0-31.0); MEAN CORPUSCULAR HGB CONC 32.5 g/dL (33.0-36.5); MEAN CORPUSCULAR VOLUME 100.5 FL (78-98); MEAN PLATELET VOLUME 9.2 FL (7.4-10.4); MONOCYTES # (AUTO) 0.8 X10'3 (0-0.9); NEUTROPHILS # (AUTO) 4.5 X10'3 (1.8-7.7); NEUTROPHILS % (AUTO) 74.5 % (42-75); PLATELET COUNT 439 X10'3 (140-440); RED BLOOD COUNT 3.06 X10'6 (4.70-6.10); RED CELL DISTRIBUTION WIDTH 14.8 % (11.5-14.5); WHITE BLOOD COUNT 6.1 X10'3 (4.5-11.0)
--- NOTE | 2020-10-26 06:10 | NUR ---
Patient in room ORTHO 4016. I have received report from Theresa PEARSON and had the opportunity to ask questions and assume patient care.
[2020-10-26 06:16] LABS: ALANINE AMINOTRANSFERASE 47 U/L (12-78); ALBUMIN 2.4 G/DL (3.4-5.0); ALBUMIN/GLOBULIN RATIO 0.5 (1.1-1.5); ALKALINE PHOSPHATASE 253 IU/L (46-116); ANION GAP 6 (8-16); ASPARTATE AMINO TRANSFERASE 56 U/L (10-37); BILIRUBIN,TOTAL 0.7 MG/DL (0.1-1.0); BLOOD UREA NITROGEN 44 MG/DL (7-18); BUN/CREATININE RATIO 23.8 (5.4-32.0); CALCIUM 9.5 MG/DL (8.5-10.1); CHLORIDE 104 MMOL/L (99-107); CREATININE 1.85 MG/DL (0.60-1.10); GLUCOSE 104 MG/DL (70-104); POTASSIUM 3.5 MMOL/L (3.5-5.1); SODIUM 144 MMOL/L (135-145); TOTAL PROTEIN 6.8 G/DL (6.4-8.2); eGFR 35 ML/MIN
--- NOTE | 2020-10-26 06:22 | NUR ---
Problems reprioritized. Patient report given, questions answered & plan of care reviewed with MICHEL WOOTEN.
--- NOTE | 2020-10-26 06:44 | NUR ---
Patient in room ORTHO 4016. I have received report from MICHEL Cardenas and had the opportunity to ask questions and assume patient care.
[2020-10-26] MEDS: K and/or MAG REPLACEMENT MC SCH ×4 (08:00→20:00)
[2020-10-26] MEDS: NUT.TX.IMP.RENAL FXN,LAC-REDUC (Nepro) 237 ML VANILLA PO SCH ×3 (08:00→18:00)
[2020-10-26] MEDS: lactobacillus rhamnosus 10,000 MMU CELLS/CAPSULE PO SCH ×2 (09:25→21:43)
[2020-10-26] MEDS: duloxetine 30mg CAPSULE.DR PO SCH ×2 (09:25→21:43)
[2020-10-26] MEDS: levoTHYROXINE 75mcg tablet PO SCH (09:25)
[2020-10-26] MEDS: atorvastatin 20mg tablet PO SCH (09:26)
[2020-10-26] MEDS: heparin, porcine 5000 units/ml vial SQ SCH ×2 (09:27→21:42)
[2020-10-26] MEDS: nystatin 500,000 unit/5ML UD oral suspension PO SCH ×3 (09:33→21:40)
[2020-10-26 10:20] VITALS: BP 136/66
--- NOTE | 2020-10-26 12:06 | NUR ---
Placed two new opti- foams on patients buttocks. wounds currently clean, dry, and intact
[2020-10-26] MEDS ORDERED: morphine 2 MG/ML inj. syringe IV PRN (15:20)
--- NOTE | 2020-10-26 18:12 | NUR ---
Problems reprioritized. Patient report given, questions answered & plan of care reviewed with Theresa PEARSON.
[2020-10-26 18:30] VITALS: BP 132/76
[2020-10-26 20:00] VITALS: BP 121/68
[2020-10-26] MEDS: traZODone 50mg tablet PO SCH (21:40)
[2020-10-26] MEDS: finasteride 5mg tablet PO SCH (21:43)
[2020-10-27 02:00] VITALS: BP 121/68
[2020-10-27] MEDS: oxyCODONE IR 5mg (immed. release) tablet PO PRN (05:15)
[2020-10-27 06:10] LABS: BASOPHILS % (AUTO) 0.3 % (0-1); EOSINOPHILS # (AUTO) 0.1 X10'3 (0-0.9); EOSINOPHILS % (AUTO) 1.1 % (0-6); HEMATOCRIT 26.8 % (42.0-52.0); HEMOGLOBIN 9.1 g/dl (14.0-17.9); LYMPHOCYTES # (AUTO) 0.6 X10'3 (1.1-4.8); LYMPHOCYTES % (AUTO) 8.9 % (21-51); MEAN CORPUSCULAR HEMOGLOBIN 33.6 PG (27.0-31.0); MEAN CORPUSCULAR HGB CONC 33.8 g/dL (33.0-36.5); MEAN CORPUSCULAR VOLUME 99.3 FL (78-98); MONOCYTES # (AUTO) 0.8 X10'3 (0-0.9); MONOCYTES % (AUTO) 10.7 % (2-12); NEUTROPHILS # (AUTO) 5.6 X10'3 (1.8-7.7); PLATELET COUNT 432 X10'3 (140-440); WHITE BLOOD COUNT 7.1 X10'3 (4.5-11.0)
--- NOTE | 2020-10-27 06:25 | NUR ---
Problems reprioritized. Patient report given, questions answered & plan of care reviewed with MICHEL ROMERO.
[2020-10-27 06:27] LABS: ALANINE AMINOTRANSFERASE 42 U/L (12-78); ALBUMIN 2.4 G/DL (3.4-5.0); ALBUMIN/GLOBULIN RATIO 0.6 (1.1-1.5); ALKALINE PHOSPHATASE 237 IU/L (46-116); ANION GAP 7 (8-16); ASPARTATE AMINO TRANSFERASE 52 U/L (10-37); BILIRUBIN,TOTAL 0.8 MG/DL (0.1-1.0); BLOOD UREA NITROGEN 39 MG/DL (7-18); BUN/CREATININE RATIO 23.5 (5.4-32.0); CALCIUM 9.1 MG/DL (8.5-10.1); CHLORIDE 103 MMOL/L (99-107); CREATININE 1.66 MG/DL (0.60-1.10); GLUCOSE 101 MG/DL (70-104); POTASSIUM 3.3 MMOL/L (3.5-5.1); SODIUM 142 MMOL/L (135-145); TOTAL CARBON DIOXIDE 32.5 MMOL/L (24-32); TOTAL PROTEIN 6.6 G/DL (6.4-8.2); eGFR 40 ML/MIN
[2020-10-27 06:30] VITALS: BP 130/69
[2020-10-27] MEDS: levoTHYROXINE 75mcg tablet PO SCH (07:29)
[2020-10-27] MEDS: atorvastatin 20mg tablet PO SCH (07:29)
[2020-10-27] MEDS: nystatin 500,000 unit/5ML UD oral suspension PO SCH ×2 (07:30→13:36)
[2020-10-27] MEDS: lactobacillus rhamnosus 10,000 MMU CELLS/CAPSULE PO SCH (07:30)
[2020-10-27] MEDS: duloxetine 30mg CAPSULE.DR PO SCH (07:30)
[2020-10-27] MEDS: heparin, porcine 5000 units/ml vial SQ SCH (07:32)
[2020-10-27] MEDS: NUT.TX.IMP.RENAL FXN,LAC-REDUC (Nepro) 237 ML VANILLA PO SCH ×2 (07:45→13:36)
[2020-10-27 08:00] VITALS: BP 130/69
[2020-10-27] MEDS: K and/or MAG REPLACEMENT MC SCH ×2 (08:00)
--- NOTE | 2020-10-27 10:19 | NUR ---
PAGER ID: [phone] MESSAGE: [phone] RAYO N: MAAME HAS K+ LEVEL OF 3.3. WOULD YOU LIKE A ONE TIME DOSE OR PROTOCOL STARTED? THANKS, IMMANUEL [phone]
[2020-10-27 10:26] VITALS: BP 119/65
--- NOTE | 2020-10-27 12:07 | NUR ---
ALL DRESSINGS CHANGED AND PHOTOGRAPHED.
--- NOTE | 2020-10-27 12:07 | NUR ---
MRSA SWAB FOR PATIENT HERE >21 DAYS COMPLETED AND SENT TO LAB
--- NOTE | 2020-10-27 14:06 | NUR ---
REPORT CALLED TO ALESIA AT [facility]. ALL QUESTIONS ANSWERED. PATIENT BELONGINGS ARE PACKED UP AND READY FOR TRANSFER. PIV REMOVED.
--- NOTE | 2020-10-27 14:21 | NUR ---
PATIENT STABLE AND APPROPRIATE FOR TRANSFER TO [facility]. ALL BELONGINGS TAKEN FROM ROOM. DAUGHTER GENO UPDATED ON TRANSFER. PIV REMOVED. DC PACKET SENT WITH PATIENT.
[2020-10-28 08:35] LABS: PSA, FREE <0.02 ng/mL
== END 2020-10-27 14:49 | DRG 853 ==
LOC: ER 09:08 → ORTHO 4S 12:18 → UNDODISIN 10-09 14:30 → ORTHO 4S 10-12 08:00
PROVIDERS: ADMIT Internal Medicine; ATTEND Internal Medicine
PROC: 0JH63XZ Insertion of Tunneled Vascular Access Device into Chest Subcutaneous Tissue and Fascia, Percutaneous Approach (ICD-10-PCS; 2020-10-03)
PROC: 02H633Z Insertion of Infusion Device into Right Atrium, Percutaneous Approach (ICD-10-PCS; 2020-10-03)
PROC: B5181ZA Fluoroscopy of Superior Vena Cava using Low Osmolar Contrast, Guidance (ICD-10-PCS; 2020-10-03)
PROC: B548ZZA Ultrasonography of Superior Vena Cava, Guidance (ICD-10-PCS; 2020-10-03)
PROC: 5A1D70Z Performance of Urinary Filtration, Intermittent, Less than 6 Hours Per Day (ICD-10-PCS; 2020-10-04)
PROC: 5A1D70Z Performance of Urinary Filtration, Intermittent, Less than 6 Hours Per Day (ICD-10-PCS; 2020-10-05)
PROC: 5A1D70Z Performance of Urinary Filtration, Intermittent, Less than 6 Hours Per Day (ICD-10-PCS; 2020-10-06)
PROC: 5A1D70Z Performance of Urinary Filtration, Intermittent, Less than 6 Hours Per Day (ICD-10-PCS; 2020-10-08)
PROC: 5A1D70Z Performance of Urinary Filtration, Intermittent, Less than 6 Hours Per Day (ICD-10-PCS; 2020-10-11)
PROC: 5A1D70Z Performance of Urinary Filtration, Intermittent, Less than 6 Hours Per Day (ICD-10-PCS; 2020-10-13)
PROC: 5A1D70Z Performance of Urinary Filtration, Intermittent, Less than 6 Hours Per Day (ICD-10-PCS; 2020-10-15)
PROC: 0JPVXXZ Removal of Tunneled Vascular Access Device from Upper Extremity Subcutaneous Tissue and Fascia, External Approach (ICD-10-PCS; 2020-10-19)
PROC: 0JBD0ZZ Excision of Right Upper Arm Subcutaneous Tissue and Fascia, Open Approach (ICD-10-PCS; principal; 2020-10-21)
PROC: 0JBP0ZZ Excision of Left Lower Leg Subcutaneous Tissue and Fascia, Open Approach (ICD-10-PCS; 2020-10-21)
DX: A41.9 Sepsis, unspecified organism (principal); N17.0 Acute kidney failure with tubular necrosis; E87.2 Acidosis; M62.82 Rhabdomyolysis; N39.0 Urinary tract infection, site not specified; E03.9 Hypothyroidism, unspecified; E78.00 Pure hypercholesterolemia, unspecified; E78.5 Hyperlipidemia, unspecified; E87.5 Hyperkalemia; E87.70 Fluid overload, unspecified; F17.210 Nicotine dependence, cigarettes, uncomplicated; I10 Essential (primary) hypertension; I49.8 Other specified cardiac arrhythmias; I95.1 Orthostatic hypotension; N40.0 Benign prostatic hyperplasia without lower urinary tract symptoms; R65.20 Severe sepsis without septic shock; G47.00 Insomnia, unspecified; G89.29 Other chronic pain; M19.90 Unspecified osteoarthritis, unspecified site; Z79.899 Other long term (current) drug therapy; Z85.46 Personal history of malignant neoplasm of prostate; Z92.3 Personal history of irradiation; Z99.2 Dependence on renal dialysis
CPT/HCPCS: 36415; 36558; 36589; 51702; 70450; 70496; 70498; 70551; 71045; 72125; 72141; 73030; 73060; 74176; 76775; 76937; 80048; 80053; 80061; 80076; 80305; 80320; 81001; 82550; 82553; 82570; 82948; 83605; 83735; 83880; 84100; 84132; 84133; 84153; 84154; 84156; 84295; 84300; 84484; 84540; 85007; 85008; 85025; 85610; 85651; 85730; 86704; 86706; 87040; 87077; 87081; 87088; 87186; 87207; 87340; 90471; 90715; 92508; 92616; 93005; 93306; 93308; 93971; 94640; 94660; 94760; 96365; 96367; 96375; 97110; 97112; 97116; 97124; 97161; 97164; 97530; 97535; 99285; A9270; C1750; C1769; C1894; G0378; J1644; J1815; J1940; J1956; J2020; J2270; J2405; J2543; J3010; J3480; J7030; P9047; Q4081; Q9967

== ENCOUNTER 2021-02-18 18:25 | Outpatient (CLI) | payer BC ==
[~2021-02-18 18:25] MED LIST changes: -DUTA1CPM4 PO; +FINA5TAB12 PO; +FLO0.4C PO; -GABA300C PO; -HYDR-3686 PO; -SENN-263 PO
[2021-02-18 18:59] LABS: CLARITY,URINE CLEAR (Clear); COLOR,URINE YELLOW (Yellow); GLUCOSE, URINE NEGATIVE (Neg); KETONES,URINE NEGATIVE (Neg); LEUKOCYTE ESTERASE ,URINE NEGATIVE (Neg); NITRITES, URINE NEGATIVE (Neg); OCCULT BLOOD,URINE NEGATIVE (Neg); PROTEIN,URINE NEGATIVE (Neg); UROBILINOGEN,URINE 0.2 E.U/dL (0.2-1.0)
[2021-02-18 19:08] LABS: UA COLLECTION TYPE CLN CATCH MIDSTREAM
== END 2021-02-18 23:59 | disposition home or self-care (01) ==
LOC: LAB SPEC 18:25
PROVIDERS: ATTEND Family Medicine
DX: N39.0 Urinary tract infection, site not specified (principal)
CPT/HCPCS: 81003

== ENCOUNTER 2021-03-30 08:05 | Emergency (ER) | payer BC ==
[~2021-03-30] VITALS: Ht 177.8 cm; Wt 91.8 kg
[2021-03-30] MEDS ORDERED: LIDOcaine 1% W/epiNEPHrine 1:200,000 10ml vial IJ ONE (08:10)
[2021-03-30 08:11] VITALS: BP 127/55
[2021-03-30] MEDS ORDERED: CEPH250T PO (09:33)
== END 2021-03-30 10:09 | disposition home or self-care (01) ==
LOC: ER 08:05
DX: S01.111A Laceration without foreign body of right eyelid and periocular area, initial encounter (principal); E78.00 Pure hypercholesterolemia, unspecified; I10 Essential (primary) hypertension; E03.9 Hypothyroidism, unspecified; M19.90 Unspecified osteoarthritis, unspecified site; G89.29 Other chronic pain; Z87.440 Personal history of urinary (tract) infections; Z85.9 Personal history of malignant neoplasm, unspecified; Z98.890 Other specified postprocedural states; Z72.89 Other problems related to lifestyle; Z79.2 Long term (current) use of antibiotics; Z79.899 Other long term (current) drug therapy; X58.XXXA Exposure to other specified factors, initial encounter; Y93.89 Activity, other specified; Y92.89 Other specified places as the place of occurrence of the external cause; Y99.8 Other external cause status
CPT/HCPCS: 12011; 70450; 70486; 99285

== ENCOUNTER 2021-07-11 08:26 | Emergency (ER) | payer BC ==
[~2021-07-11] VITALS: Ht 175.3 cm; Wt 90.9 kg
[2021-07-11 08:56] LABS: BASOPHILS % (AUTO) 0.2 % (0-1); EOSINOPHILS % (AUTO) 0.1 % (0-6); HEMOGLOBIN 13.7 g/dl (14.0-17.9); LYMPHOCYTES # (AUTO) 0.3 X10'3 (1.1-4.8); LYMPHOCYTES % (AUTO) 2.6 % (21-51); MEAN CORPUSCULAR HEMOGLOBIN 35.4 PG (27.0-31.0); MEAN CORPUSCULAR HGB CONC 34.1 g/dL (33.0-36.5); MEAN CORPUSCULAR VOLUME 103.7 FL (78-98); MEAN PLATELET VOLUME 8.8 FL (7.4-10.4); MONOCYTES % (AUTO) 9.4 % (2-12); NEUTROPHILS # (AUTO) 9.5 X10'3 (1.8-7.7); NEUTROPHILS % (AUTO) 87.7 % (42-75); PLATELET COUNT 306 X10'3 (140-440); RED BLOOD COUNT 3.86 X10'6 (4.70-6.10); RED CELL DISTRIBUTION WIDTH 15.8 % (11.5-14.5); WHITE BLOOD COUNT 10.8 X10'3 (4.5-11.0)
[2021-07-11 09:22] LABS: ALANINE AMINOTRANSFERASE 39 U/L (12-78); ALBUMIN 3.3 G/DL (3.4-5.0); ALBUMIN/GLOBULIN RATIO 0.9 (1.1-1.5); ALKALINE PHOSPHATASE 137 IU/L (46-116); ANION GAP 12 (8-16); ASPARTATE AMINO TRANSFERASE 33 U/L (10-37); BILIRUBIN,TOTAL 0.8 MG/DL (0.1-1.0); BLOOD UREA NITROGEN 11 MG/DL (7-18); BUN/CREATININE RATIO 9.2 (5.4-32.0); CALCIUM 8.9 MG/DL (8.5-10.1); CHLORIDE 102 MMOL/L (99-107); CREATININE 1.19 MG/DL (0.60-1.10); GLUCOSE 116 MG/DL (70-104); POTASSIUM 3.8 MMOL/L (3.5-5.1); SODIUM 138 MMOL/L (135-145); TOTAL CARBON DIOXIDE 23.6 MMOL/L (24-32); TOTAL PROTEIN 6.8 G/DL (6.4-8.2); eGFR 59 ML/MIN
[2021-07-11 10:36] LABS: ETHANOL < 0.010 GM/DL (0.0-0.010); MAGNESIUM 1.9 MG/DL (1.5-2.4)
[2021-07-11 10:54] VITALS: BP 155/98
[2021-07-11 11:16] LABS: D-DIMER 0.99 MG/L FEU (0-0.50)
[2021-07-11] MEDS ORDERED: normal saline 1000ML IV soln IVB ONE (12:00)
[2021-07-11] MEDS ORDERED: iohexol 350MG/ML 100ml bottle IV ONE (12:15)
== END 2021-07-11 15:40 | disposition home or self-care (01) ==
LOC: ER 08:27
DX: R07.89 Other chest pain (principal); Z20.822 Contact with and (suspected) exposure to COVID-19; G89.29 Other chronic pain; E78.00 Pure hypercholesterolemia, unspecified; I10 Essential (primary) hypertension; E03.9 Hypothyroidism, unspecified; M19.90 Unspecified osteoarthritis, unspecified site; Z85.9 Personal history of malignant neoplasm, unspecified; Z87.81 Personal history of (healed) traumatic fracture; Z87.440 Personal history of urinary (tract) infections; Z98.890 Other specified postprocedural states; Z72.89 Other problems related to lifestyle; Z79.899 Other long term (current) drug therapy
CPT/HCPCS: 36415; 71045; 71275; 80053; 80320; 83735; 83880; 84484; 85025; 85379; 87635; 96360; 99285; C9803; J7030; Q9967

== ENCOUNTER 2022-01-17 10:49 | Emergency (ER) | payer BC ==
[~2022-01-17] VITALS: Ht 175.3 cm; Wt 90.0 kg
[2022-01-17 12:48] VITALS: BP 125/81
[2022-01-17] MEDS ORDERED: LIDOcaine 2% 10ml TOPICAL JELLY (Urojet) TP ONE (12:55)
[2022-01-17] MEDS ORDERED: CEPH-585 PO (13:44)
[2022-01-17] MEDS ORDERED: cephalexin 500mg capsule PO ONE (13:45)
--- NOTE | 2022-01-17 13:52 | NUR ---
16f muñoz would not pass into bladder. md notified. 18f cude cath would not pass into bladder, md notified. pt tolerated procedure well with no verbal complaints.
== END 2022-01-17 15:50 | disposition home or self-care (01) ==
LOC: ER 10:49
DX: R33.9 Retention of urine, unspecified (principal); Z46.6 Encounter for fitting and adjustment of urinary device; I10 Essential (primary) hypertension; E78.00 Pure hypercholesterolemia, unspecified; G89.29 Other chronic pain; M54.9 Dorsalgia, unspecified; E06.9 Thyroiditis, unspecified; Z79.899 Other long term (current) drug therapy; Z79.2 Long term (current) use of antibiotics
CPT/HCPCS: 51702; 99284; A4314

== ENCOUNTER 2022-08-15 12:43 | Emergency (ER) | payer BC ==
[~2022-08-15] VITALS: Ht 170.2 cm; Wt 77.0 kg
[~2022-08-15 12:43] MED LIST changes: +CEPH-585 PO
--- NOTE | 2022-08-15 13:14 | NUR ---
patient refused blood draw,Ricardo DUBOIS aware.Pitcher of water given,SW paged per Ga DUBOIS.
--- NOTE | 2022-08-15 14:37 | NUR ---
Paged Miguel A. Worker again.
[2022-08-15 14:45] VITALS: BP 143/94
--- NOTE | 2022-08-15 14:47 | NUR ---
Asked by SS to please speak w/ pt regarding state of his home and his living conditions. Met w/ pt who is 100% alert and oriented. I explained that everyone is concerned about the state/cleaniness of his home. He says he's aware, his family is upset but " quite frankly doesn't bother me at all". He tells me he is going to hire a house furnishings supervisor to get it in shape. Encouraged him to f/u at his PMD's office. He's currently awaiting the arrival of his grandson to take him home. Spoke w/ SILVINO Koroma and let him know that I would ask SS to place a referral to [facility]. Pt will be dc'd home.
[2022-08-15 15:08] LABS: CLARITY,URINE CLOUDY (Clear); COLOR,URINE YELLOW (Yellow); GLUCOSE, URINE NEGATIVE (Neg); KETONES,URINE TRACE mg/dl (Neg); LEUKOCYTE ESTERASE ,URINE SMALL (Neg); NITRITES, URINE NEGATIVE (Neg); OCCULT BLOOD,URINE NEGATIVE (Neg); PH,URINE 5.5 (4.8-8.0); PROTEIN,URINE 30 mg/dl (Neg); UROBILINOGEN,URINE 0.2 E.U/dL (0.2-1.0)
[2022-08-15 15:12] LABS: UA COLLECTION TYPE CLN CATCH MIDSTREAM
[2022-08-15 15:19] LABS: BACTERIA,URINE FEW /HPF (Neg); RBC,URINE 0-2 /HPF (0-2); SQUAMOUS EPITHELIAL CELL,UR MODERATE /LPF (FEW)
[2022-08-15 15:21] LABS: WBC CLUMPS,URINE FEW /HPF (NEGATIVE)
[2022-08-15 15:23] LABS: MUCUS STRANDS FEW /LPF (Neg); WBC,URINE 30-50 /HPF (0-4)
== END 2022-08-15 15:27 | disposition home or self-care (01) ==
LOC: ER 12:44
DX: Z00.00 Encounter for general adult medical examination without abnormal findings (principal); I10 Essential (primary) hypertension; E78.00 Pure hypercholesterolemia, unspecified; E03.9 Hypothyroidism, unspecified; M19.90 Unspecified osteoarthritis, unspecified site; G89.29 Other chronic pain; M54.50 Low back pain, unspecified
CPT/HCPCS: 81001; 87088; 99284

== ENCOUNTER 2022-10-21 05:06 | Emergency (ER) | payer BC ==
[~2022-10-21] VITALS: Ht 177.8 cm; Wt 53.6 kg
[2022-10-21 06:31] LABS: BASOPHILS % (AUTO) 0.4 % (0-1); EOSINOPHILS % (AUTO) 0.9 % (0-6); HEMATOCRIT 32.5 % (42.0-52.0); HEMOGLOBIN 10.9 g/dl (14.0-17.9); LYMPHOCYTES # (AUTO) 0.5 X10'3 (1.1-4.8); LYMPHOCYTES % (AUTO) 12.5 % (21-51); MEAN CORPUSCULAR HGB CONC 33.7 g/dL (33.0-36.5); MEAN CORPUSCULAR VOLUME 100.8 FL (78-98); MEAN PLATELET VOLUME 8.2 FL (7.4-10.4); MONOCYTES # (AUTO) 0.5 X10'3 (0-0.9); MONOCYTES % (AUTO) 12.7 % (2-12); NEUTROPHILS # (AUTO) 2.9 X10'3 (1.8-7.7); NEUTROPHILS % (AUTO) 73.5 % (42-75); PLATELET COUNT 213 X10'3 (140-440); RED BLOOD COUNT 3.22 X10'6 (4.70-6.10)
[2022-10-21 06:35] LABS: ALANINE AMINOTRANSFERASE 23 U/L (12-78); ALKALINE PHOSPHATASE 90 IU/L (46-116); ANION GAP 7 (8-16); ASPARTATE AMINO TRANSFERASE 25 U/L (10-37); BILIRUBIN,TOTAL 0.7 MG/DL (0.1-1.0); BLOOD UREA NITROGEN 11 MG/DL (7-18); BUN/CREATININE RATIO 9.1 (10.0-20.0); CALCIUM 8.7 MG/DL (8.5-10.1); CHLORIDE 98 MMOL/L (99-107); CREATININE 1.21 MG/DL (0.60-1.10); GLUCOSE 96 MG/DL (70-104); POTASSIUM 3.9 MMOL/L (3.5-5.1); SODIUM 132 MMOL/L (135-145); TOTAL CARBON DIOXIDE 26.8 MMOL/L (24-32); eGFR 57 ML/MIN
[2022-10-21 06:42] LABS: MAGNESIUM 1.9 MG/DL (1.5-2.4)
[2022-10-21 06:49] LABS: CLARITY,URINE CLOUDY (Clear); COLOR,URINE YELLOW (Yellow); GLUCOSE, URINE NEGATIVE (Neg); KETONES,URINE NEGATIVE (Neg); LEUKOCYTE ESTERASE ,URINE LARGE (Neg); NITRITES, URINE POSITIVE (Neg); OCCULT BLOOD,URINE TRACE-INTACT (Neg); PH,URINE 8.5 (4.8-8.0); PROTEIN,URINE 30 mg/dl (Neg); UROBILINOGEN,URINE 0.2 E.U/dL (0.2-1.0)
[2022-10-21 06:55] LABS: UA COLLECTION TYPE CLN CATCH MIDSTREAM
[2022-10-21 06:56] LABS: BACTERIA,URINE 4+ /HPF (Neg); MUCUS STRANDS NONE SEEN /LPF (Neg); SQUAMOUS EPITHELIAL CELL,UR NONE SEEN /LPF (FEW); TRANSITIONAL EPI CELLS,URINE FEW /HPF; WBC,URINE TNTC /HPF (0-4)
[2022-10-21] MEDS ORDERED: CEPH-585 PO (07:28)
[2022-10-21] MEDS ORDERED: cephalexin 500mg capsule PO ONE (07:30)
[2022-10-21 08:22] VITALS: BP 145/86
== END 2022-10-21 08:23 | disposition home or self-care (01) ==
LOC: ER 05:07
DX: R07.9 Chest pain, unspecified (principal); N39.0 Urinary tract infection, site not specified; E78.00 Pure hypercholesterolemia, unspecified; I10 Essential (primary) hypertension; G89.29 Other chronic pain; M54.9 Dorsalgia, unspecified; Z87.81 Personal history of (healed) traumatic fracture; Z90.49 Acquired absence of other specified parts of digestive tract; Z79.899 Other long term (current) drug therapy; Z79.1 Long term (current) use of non-steroidal anti-inflammatories (NSAID); Z79.2 Long term (current) use of antibiotics
CPT/HCPCS: 36415; 71045; 80053; 81001; 83735; 83880; 84484; 85025; 93005; 99285

== ENCOUNTER 2023-03-12 08:42 | Emergency (ER) | payer BC ==
[~2023-03-12] VITALS: Ht 175.3 cm; Wt 82.3 kg
[~2023-03-12 08:42] MED LIST changes: -CEPH-585 PO; -LOSA100T57 PO; +LOSA100T58 PO
[2023-03-12 08:49] VITALS: TEMP 98
[2023-03-12 09:18] LABS: BASOPHILS % (AUTO) 0.2 % (0-1); EOSINOPHILS % (AUTO) 0.9 % (0-6); HEMATOCRIT 38.7 % (42.0-52.0); HEMOGLOBIN 13.1 g/dl (14.0-17.9); LYMPHOCYTES # (AUTO) 0.5 X10'3 (1.1-4.8); LYMPHOCYTES % (AUTO) 11.8 % (21-51); MEAN CORPUSCULAR HEMOGLOBIN 34.5 PG (27.0-31.0); MEAN CORPUSCULAR HGB CONC 33.9 g/dL (33.0-36.5); MEAN CORPUSCULAR VOLUME 101.8 FL (78-98); MEAN PLATELET VOLUME 8.6 FL (7.4-10.4); MONOCYTES # (AUTO) 0.5 X10'3 (0-0.9); MONOCYTES % (AUTO) 10.8 % (2-12); NEUTROPHILS # (AUTO) 3.4 X10'3 (1.8-7.7); NEUTROPHILS % (AUTO) 76.3 % (42-75); PLATELET COUNT 212 X10'3 (140-440); RED BLOOD COUNT 3.81 X10'6 (4.70-6.10); RED CELL DISTRIBUTION WIDTH 15.1 % (11.5-14.5); WHITE BLOOD COUNT 4.5 X10'3 (4.5-11.0)
[2023-03-12 09:21] LABS: ALANINE AMINOTRANSFERASE 25 U/L (12-78); ALBUMIN 3.6 G/DL (3.4-5.0); ALBUMIN/GLOBULIN RATIO 1.1 (1.1-1.5); ALKALINE PHOSPHATASE 85 IU/L (46-116); ANION GAP 8 (8-16); ASPARTATE AMINO TRANSFERASE 26 U/L (10-37); BILIRUBIN,TOTAL 1.4 MG/DL (0.1-1.0); BLOOD UREA NITROGEN 12 MG/DL (7-18); BUN/CREATININE RATIO 8.6 (10.0-20.0); CALCIUM 9.2 MG/DL (8.5-10.1); CHLORIDE 97 MMOL/L (99-107); CREATININE 1.39 MG/DL (0.60-1.10); GLUCOSE 120 MG/DL (70-104); POTASSIUM 3.2 MMOL/L (3.5-5.1); SODIUM 135 MMOL/L (135-145); TOTAL CARBON DIOXIDE 29.9 MMOL/L (24-32); TOTAL PROTEIN 6.9 G/DL (6.4-8.2); eCRCL 40 ML/MIN; eGFR 49 ML/MIN
[2023-03-12 09:29] LABS: PRO BRAIN NATRIURETIC PEPTIDE 209 PG/ML (0-450)
[2023-03-12] MEDS ORDERED: potassium Cl 20 mEq SR tablet PO STA (11:10)
[2023-03-12 11:29] VITALS: BP 174/64; PULSE 93; RESP 16; O2SAT 98
== END 2023-03-12 13:07 | disposition home or self-care (01) ==
LOC: ER 08:43
DX: R42 Dizziness and giddiness (principal); E86.0 Dehydration; E87.6 Hypokalemia; E78.00 Pure hypercholesterolemia, unspecified; I10 Essential (primary) hypertension; E03.9 Hypothyroidism, unspecified; M19.90 Unspecified osteoarthritis, unspecified site; Z79.899 Other long term (current) drug therapy
CPT/HCPCS: 36415; 71045; 80053; 83880; 84484; 85025; 93005; 99285

== ENCOUNTER 2023-03-16 09:46 | Emergency (ER) | payer BC ==
[~2023-03-16] VITALS: Ht 175.3 cm; Wt 82.7 kg
[2023-03-16 09:53] VITALS: TEMP 98.1
--- NOTE | 2023-03-16 10:35 | NUR ---
Patient with bladder scan showing 371 mls post void residual 275 mls.
[2023-03-16] MEDS ORDERED: LidoCAINE 2% Topical Jelly 11mL syringe MM ONE (10:40)
[2023-03-16] MEDS ORDERED: LIDOcaine 2% 10ml TOPICAL JELLY (Urojet) MM ONE (10:40)
[2023-03-16 10:56] LABS: BILIRUBIN,URINE NEGATIVE (Neg); CLARITY,URINE CLEAR (Clear); COLOR,URINE STRAW (Yellow); GLUCOSE, URINE NEGATIVE (Neg); KETONES,URINE NEGATIVE (Neg); LEUKOCYTE ESTERASE ,URINE NEGATIVE (Neg); NITRITES, URINE NEGATIVE (Neg); OCCULT BLOOD,URINE NEGATIVE (Neg); PROTEIN,URINE NEGATIVE (Neg); UROBILINOGEN,URINE 0.2 E.U/dL (0.2-1.0)
[2023-03-16 10:58] LABS: UA COLLECTION TYPE CLN CATCH MIDSTREAM
--- NOTE | 2023-03-16 11:15 | NUR ---
2 Attempts at muñoz catheter placement without success. Attempted using a 16 Fr and 14 coude catheter. Charge nurse notified.
--- NOTE | 2023-03-16 13:00 | NUR ---
Charge nurse attempt at Renae catheter using 14 Fr coude and 8 Fr without success. MD Car attempt with [address] Pollard, urologist has been paged.
[2023-03-16] MEDS ORDERED: tamsulosin 0.4mg capsule PO SCH (13:25)
[2023-03-16 13:36] VITALS: BP 151/95; PULSE 87; RESP 16; O2SAT 98
--- NOTE | 2023-03-16 14:19 | NUR ---
Pt voided approximately 125 mLs. Post void residual shows 87 mLs.
== END 2023-03-16 15:09 | disposition home or self-care (01) ==
LOC: ER 09:46
DX: R33.9 Retention of urine, unspecified (principal); E78.00 Pure hypercholesterolemia, unspecified; I10 Essential (primary) hypertension; E03.9 Hypothyroidism, unspecified; M19.90 Unspecified osteoarthritis, unspecified site; Z79.899 Other long term (current) drug therapy
CPT/HCPCS: 51702; 81003; 99284; A4314; A4340; A4358; A5200

== ENCOUNTER 2023-04-01 09:51 | Emergency (ER) | payer BC ==
[~2023-04-01] VITALS: Ht 175.3 cm; Wt 83.2 kg
[2023-04-01 10:31] LABS: BASOPHILS % (AUTO) 0.4 % (0-1); EOSINOPHILS # (AUTO) 0.1 X10'3 (0-0.9); HEMATOCRIT 38.1 % (42.0-52.0); HEMOGLOBIN 12.8 g/dl (14.0-17.9); LYMPHOCYTES # (AUTO) 0.6 X10'3 (1.1-4.8); LYMPHOCYTES % (AUTO) 8.6 % (21-51); MEAN CORPUSCULAR HGB CONC 33.5 g/dL (33.0-36.5); MEAN CORPUSCULAR VOLUME 101.4 FL (78-98); MEAN PLATELET VOLUME 8.3 FL (7.4-10.4); MONOCYTES # (AUTO) 0.4 X10'3 (0-0.9); MONOCYTES % (AUTO) 6.4 % (2-12); NEUTROPHILS # (AUTO) 5.4 X10'3 (1.8-7.7); NEUTROPHILS % (AUTO) 83.6 % (42-75); PLATELET COUNT 302 X10'3 (140-440); RED BLOOD COUNT 3.76 X10'6 (4.70-6.10); RED CELL DISTRIBUTION WIDTH 14.4 % (11.5-14.5); WHITE BLOOD COUNT 6.5 X10'3 (4.5-11.0)
[2023-04-01 10:48] LABS: ALANINE AMINOTRANSFERASE 22 U/L (12-78); ALBUMIN 3.4 G/DL (3.4-5.0); ALBUMIN/GLOBULIN RATIO 0.9 (1.1-1.5); ALKALINE PHOSPHATASE 114 IU/L (46-116); ANION GAP 9 (8-16); ASPARTATE AMINO TRANSFERASE 31 U/L (10-37); BILIRUBIN,TOTAL 1.3 MG/DL (0.1-1.0); BLOOD UREA NITROGEN 27 MG/DL (7-18); BUN/CREATININE RATIO 15.5 (10.0-20.0); CALCIUM 9.2 MG/DL (8.5-10.1); CHLORIDE 99 MMOL/L (99-107); CREATININE 1.74 MG/DL (0.60-1.10); GLUCOSE 135 MG/DL (70-104); SODIUM 139 MMOL/L (135-145); TOTAL CARBON DIOXIDE 31.4 MMOL/L (24-32); TOTAL PROTEIN 7.1 G/DL (6.4-8.2); eCRCL 32 ML/MIN; eGFR 38 ML/MIN
[2023-04-01 10:54] LABS: POTASSIUM 2.8 MMOL/L (3.5-5.1)
--- NOTE | 2023-04-01 11:03 | NUR ---
BROOK[place]N- PT'S DAUGHTER CALLED. STATES THAT PT IS CONFUSED AND HAS BEEN A LOT LATELY. NOT SURE IF HE HAS BEEN TAKING HIS MEDS. PT HAS BEEN SENDING HER MESSAGES NOT MAKING SENSE. PHONE NUMBER:[phone]
[2023-04-01] MEDS ORDERED: ringers solution, lacted 1,000 ML IV ONE (11:50)
[2023-04-01 11:55] VITALS: BP 131/84; PULSE 104; RESP 18; TEMP 97.8; O2SAT 95
[2023-04-01] MEDS ORDERED: potassium chloride 8mEq ER tablet PO ONE (13:20)
[2023-04-01] MEDS ORDERED: CefTRIAXone 2gm/D5W 50ml BAG 50 ML IV ONE (13:35)
[2023-04-01] MEDS ORDERED: POTA-192 PO (14:24)
[2023-04-01] MEDS ORDERED: NITR100C6 PO (14:24)
[2023-04-01 14:40] LABS: BILIRUBIN,URINE NEGATIVE (Neg); CLARITY,URINE CLOUDY (Clear); COLOR,URINE YELLOW (Yellow); GLUCOSE, URINE NEGATIVE (Neg); KETONES,URINE NEGATIVE (Neg); LEUKOCYTE ESTERASE ,URINE LARGE (Neg); NITRITES, URINE POSITIVE (Neg); OCCULT BLOOD,URINE TRACE-INTACT (Neg); PH,URINE 6.5 (4.8-8.0); PROTEIN,URINE 30 mg/dl (Neg); UROBILINOGEN,URINE 0.2 E.U/dL (0.2-1.0)
[2023-04-01 14:44] LABS: UA COLLECTION TYPE FOLEY CATH
[2023-04-01 14:45] LABS: BACTERIA,URINE 4+ /HPF (Neg); MUCUS STRANDS FEW /LPF (Neg); SQUAMOUS EPITHELIAL CELL,UR FEW /LPF (FEW); WBC,URINE TNTC /HPF (0-4)
== END 2023-04-01 15:08 | disposition home or self-care (01) ==
LOC: ER 09:53
DX: N39.0 Urinary tract infection, site not specified (principal); E87.6 Hypokalemia; E78.00 Pure hypercholesterolemia, unspecified; I10 Essential (primary) hypertension; E03.9 Hypothyroidism, unspecified; M19.90 Unspecified osteoarthritis, unspecified site; G89.29 Other chronic pain; Z87.81 Personal history of (healed) traumatic fracture; Z85.46 Personal history of malignant neoplasm of prostate; Z96.0 Presence of urogenital implants; Z86.73 Personal history of transient ischemic attack (TIA), and cerebral infarction without residual deficits; Z72.89 Other problems related to lifestyle; Z79.899 Other long term (current) drug therapy
CPT/HCPCS: 36415; 74176; 80053; 81001; 85025; 87077; 87088; 87186; 93005; 96361; 96365; 99285; J0696; J7120

== ENCOUNTER 2023-04-21 15:25 | Inpatient (IN) | payer BC ==
[~2023-04-21] VITALS: Ht 175.3 cm; Wt 82.0 kg
[~2023-04-21 15:25] MED LIST changes: +CIPR-259 PO; +NITR100C6 PO
[2023-04-21 16:47] LABS: EOSINOPHILS # (AUTO) 0.1 X10'3 (0-0.9)
[2023-04-21 16:49] LABS: BASOPHILS % (AUTO) 0.4 % (0-1); EOSINOPHILS % (AUTO) 0.7 % (0-6); HEMATOCRIT 39.9 % (42.0-52.0); HEMOGLOBIN 13.4 g/dl (14.0-17.9); LYMPHOCYTES # (AUTO) 0.8 X10'3 (1.1-4.8); LYMPHOCYTES % (AUTO) 10.4 % (21-51); MEAN CORPUSCULAR HEMOGLOBIN 34.5 PG (27.0-31.0); MEAN CORPUSCULAR HGB CONC 33.7 g/dL (33.0-36.5); MEAN CORPUSCULAR VOLUME 102.3 FL (78-98); MEAN PLATELET VOLUME 9.3 FL (7.4-10.4); MONOCYTES # (AUTO) 0.6 X10'3 (0-0.9); MONOCYTES % (AUTO) 7.4 % (2-12); NEUTROPHILS # (AUTO) 6.6 X10'3 (1.8-7.7); NEUTROPHILS % (AUTO) 81.1 % (42-75); PLATELET COUNT 324 X10'3 (140-440); RED CELL DISTRIBUTION WIDTH 14.5 % (11.5-14.5); WHITE BLOOD COUNT 8.1 X10'3 (4.5-11.0)
[2023-04-21 17:01] LABS: ALANINE AMINOTRANSFERASE 22 U/L (12-78); ALBUMIN 3.3 G/DL (3.4-5.0); ALBUMIN/GLOBULIN RATIO 0.8 (1.1-1.5); ALKALINE PHOSPHATASE 144 IU/L (46-116); ANION GAP 16 (8-16); ASPARTATE AMINO TRANSFERASE 31 U/L (10-37); BLOOD UREA NITROGEN 20 MG/DL (7-18); BUN/CREATININE RATIO 10.4 (10.0-20.0); CALCIUM 9.6 MG/DL (8.5-10.1); CHLORIDE 102 MMOL/L (99-107); CREATININE 1.92 MG/DL (0.60-1.10); GLUCOSE 128 MG/DL (70-104); POTASSIUM 3.7 MMOL/L (3.5-5.1); SODIUM 136 MMOL/L (135-145); TOTAL CARBON DIOXIDE 17.9 MMOL/L (24-32); TOTAL PROTEIN 7.2 G/DL (6.4-8.2); eCRCL 29 ML/MIN; eGFR 34 ML/MIN
[2023-04-21] MEDS ORDERED: normal saline 1000ML IV soln IV ONE (17:25)
[2023-04-21 17:52] LABS: MAGNESIUM 1.8 MG/DL (1.5-2.4)
[2023-04-21] MEDS ORDERED: NAPR-56 PO (17:53)
[2023-04-21] MEDS ORDERED: LidoCAINE 2% Topical Jelly 11mL syringe MM ONE (20:05)
[2023-04-21] MEDS ORDERED: LIDOcaine 2% 10ml TOPICAL JELLY (Urojet) MM ONE (20:05)
[2023-04-21 20:23] LABS: BILIRUBIN,URINE NEGATIVE (Neg); CLARITY,URINE TURBID (Clear); COLOR,URINE YELLOW (Yellow); GLUCOSE, URINE NEGATIVE (Neg); KETONES,URINE NEGATIVE (Neg); LEUKOCYTE ESTERASE ,URINE MODERATE (Neg); NITRITES, URINE NEGATIVE (Neg); OCCULT BLOOD,URINE MODERATE (Neg); PH,URINE >=9.0 (4.8-8.0); PROTEIN,URINE >=300 mg/dl (Neg)
[2023-04-21 20:28] LABS: UA COLLECTION TYPE FOLEY CATH
[2023-04-21 20:34] LABS: RBC,URINE 20-50 /HPF (0-2)
[2023-04-21 20:37] LABS: BACTERIA,URINE 4+ /HPF (Neg)
[2023-04-21 20:38] LABS: SQUAMOUS EPITHELIAL CELL,UR NONE SEEN /LPF (FEW)
[2023-04-21 20:39] LABS: AMORPHOUS PHOSPHATES 4+; WBC,URINE 0-4 /HPF (0-4)
[2023-04-21] MEDS ORDERED: morphine 2 MG/ML inj. syringe IV PRN (22:05)
[2023-04-21] MEDS ORDERED: magnesium Cl slow-release 64mg tablet PO PRN (22:05)
[2023-04-21] MEDS ORDERED: mag hydrox/Alum hydrox/simeth 30ml oral suspension PO PRN (22:05)
[2023-04-21] MEDS ORDERED: acetaminophen 325mg tablet PO PRN (22:05)
[2023-04-21] MEDS ORDERED: potassium Cl 20 mEq SR tablet PO PRN (22:05)
[2023-04-21] MEDS ORDERED: diphenhydrAMINE 25mg capsule PO PRN (22:05)
[2023-04-21] MEDS ORDERED: potassium Cl 40MEQ/1/2NS 520ml 520 ML IV PRN (22:05)
[2023-04-21] MEDS ORDERED: magnesium 4gm in 100ml NS 100 ML IV PRN (22:05)
[2023-04-21] MEDS ORDERED: magnesium 2GM in 50ml NS 50 ML IV PRN (22:05)
[2023-04-21] MEDS ORDERED: magnesium hydroxide 30ml (MOM) UD suspension PO PRN (22:05)
[2023-04-21] MEDS ORDERED: HYDROcodone/acetaminophen 10/325mg tab PO PRN (22:05)
[2023-04-21] MEDS ORDERED: ondansetron/PF 4mg/2ml inj IV PRN (22:05)
[2023-04-21] MEDS ORDERED: HYDROcodone/acetaminophen 5mg/325mg tablet PO PRN (22:05)
[2023-04-21] MEDS: dextrose 5%-1/2 normal saline 1,000 ML IV SCH (22:12)
--- NOTE | 2023-04-21 22:48 | NUR ---
PATIENT RESTING IN BED WITH EYES CLOSED, RESPIRATIONS EVEN AND UNLABORED, NO ACUTE DISTRESS NOTED AT THIS TIME, CALL LIGHT WITHIN REACH.
[2023-04-21] MEDS ORDERED: FLO0.4C PO (23:20)
[2023-04-21] MEDS ORDERED: ATOR40TA72 PO (23:20)
[2023-04-21] MEDS ORDERED: LEVO100T9 PO (23:20)
[2023-04-21] MEDS ORDERED: ZOLP12.543 PO (23:20)
[2023-04-21] MEDS ORDERED: POTA-366 PO (23:20)
[2023-04-21] MEDS ORDERED: FLUD0.1T PO (23:20)
[2023-04-21] MEDS ORDERED: DULO60CA65 PO (23:20)
[2023-04-22] MEDS ORDERED: temazepam 15mg capsule PO ONE (01:25)
[2023-04-22] MEDS ORDERED: magnesium hydroxide 30ml (MOM) UD suspension PO PRN (01:25)
--- NOTE | 2023-04-22 02:19 | NUR ---
PATIENT RESTING WITH EYES CLOSED. NO ACUTE DISTRESS NOTED AT THIS TIME, RESPIRATIONS EVEN AND UNLABORED. CALL LIGHT WITHIN REACH. CONNER PATENT, EMPTIED.
[2023-04-22 03:22] LABS: BASOPHILS % (AUTO) 0.3 % (0-1); EOSINOPHILS # (AUTO) 0.1 X10'3 (0-0.9); EOSINOPHILS % (AUTO) 1.6 % (0-6); HEMATOCRIT 31.9 % (42.0-52.0); HEMOGLOBIN 10.9 g/dl (14.0-17.9); LYMPHOCYTES # (AUTO) 0.5 X10'3 (1.1-4.8); LYMPHOCYTES % (AUTO) 10.3 % (21-51); MEAN CORPUSCULAR HEMOGLOBIN 34.6 PG (27.0-31.0); MEAN CORPUSCULAR HGB CONC 34.1 g/dL (33.0-36.5); MEAN CORPUSCULAR VOLUME 101.6 FL (78-98); MEAN PLATELET VOLUME 8.9 FL (7.4-10.4); MONOCYTES # (AUTO) 0.5 X10'3 (0-0.9); MONOCYTES % (AUTO) 11.4 % (2-12); NEUTROPHILS # (AUTO) 3.6 X10'3 (1.8-7.7); NEUTROPHILS % (AUTO) 76.4 % (42-75); PLATELET COUNT 215 X10'3 (140-440); RED BLOOD COUNT 3.14 X10'6 (4.70-6.10); RED CELL DISTRIBUTION WIDTH 14.2 % (11.5-14.5); WHITE BLOOD COUNT 4.7 X10'3 (4.5-11.0)
[2023-04-22 03:54] LABS: ALANINE AMINOTRANSFERASE 22 U/L (12-78); ALBUMIN 2.5 G/DL (3.4-5.0); ALBUMIN/GLOBULIN RATIO 0.8 (1.1-1.5); ALKALINE PHOSPHATASE 115 IU/L (46-116); ANION GAP 5 (8-16); ASPARTATE AMINO TRANSFERASE 22 U/L (10-37); BILIRUBIN,TOTAL 0.6 MG/DL (0.1-1.0); BLOOD UREA NITROGEN 16 MG/DL (7-18); BUN/CREATININE RATIO 12.4 (10.0-20.0); CALCIUM 8.2 MG/DL (8.5-10.1); CHLORIDE 107 MMOL/L (99-107); CREATININE 1.29 MG/DL (0.60-1.10); GLUCOSE 136 MG/DL (70-104); MAGNESIUM 1.7 MG/DL (1.5-2.4); POTASSIUM 3.4 MMOL/L (3.5-5.1); SODIUM 137 MMOL/L (135-145); TOTAL CARBON DIOXIDE 24.6 MMOL/L (24-32); TOTAL PROTEIN 5.6 G/DL (6.4-8.2); eCRCL 43 ML/MIN; eGFR 53 ML/MIN
--- NOTE | 2023-04-22 04:48 | NUR ---
PATIENT RESTING WITH EYES CLOSED, NO ACUTE DISTRESS NOTED AT THIS TIME. RESPIRATIONS EVEN AND UNLABORED. CALL LIGHT WITHIN REACH.
[2023-04-22] MEDS: pantoprazole 40mg Tablet.DR PO SCH (07:01)
--- NOTE | 2023-04-22 07:05 | NUR ---
PT IS AWAKE A/O X4 IN NAD. VS WNL
[2023-04-22] MEDS: K and/or MAG REPLACEMENT MC SCH ×2 (08:00→19:32)
[2023-04-22] MEDS: duloxetine 30mg CAPSULE.DR PO SCH ×2 (08:00→20:36)
[2023-04-22] MEDS: atorvastatin 20mg tablet PO SCH (08:09)
[2023-04-22] MEDS: enoxaparin 40mg/0.4ml syringe SUBCUT SCH (08:09)
[2023-04-22] MEDS: CefTRIAXone/D5W-Rocephin 1gm 50 ML IV SCH (08:10)
[2023-04-22] MEDS: docusate sod 100mg capsule PO SCH ×2 (08:10→20:06)
[2023-04-22] MEDS: dextrose 5%-1/2 normal saline 1,000 ML IV SCH ×2 (08:13→18:46)
[2023-04-22] MEDS: fludrocortisone acetate 0.1mg tablet PO SCH ×2 (08:47→20:36)
--- NOTE | 2023-04-22 10:14 | NUR ---
PT AWAKE A/O X4. PT ATE 90% OF BREAKFAST MEAL AND IS RESTING QUIETLY IN NAD. PT IS ANXIOUS TO LEAVE.
--- NOTE | 2023-04-22 12:56 | NUR ---
pt resting comfortably in bed
--- NOTE | 2023-04-22 17:12 | NUR ---
pt's bed was changed, pt was assisted to stand and pivot to a chair during bed change.
[2023-04-22] MEDS: zolpidem 5mg tablet PO SCH (20:06)
[2023-04-22] MEDS: tamsulosin 0.4mg capsule PO SCH (20:07)
--- NOTE | 2023-04-22 21:13 | NUR ---
ATTEMPTED TO CALL REPORT, NURSE WITH ANOTHER PATIENT AT THIS TIME, TO CALL BACK FOR REPORT.
[2023-04-22 22:00] VITALS: BP 166/97; PULSE 91; RESP 24; TEMP 98; O2SAT 96
[2023-04-23] MEDS: vancomycin/NS 1 GM ADD-VANTAGE 250 ML X 1 DOSE IV SCH (00:41)
[2023-04-23] MEDS: dextrose 5%-1/2 normal saline 1,000 ML IV SCH ×2 (04:05→10:53)
--- NOTE | 2023-04-23 06:43 | NUR ---
Patient in room ORTHO 4020. I have received report from October and had the opportunity to ask questions and assume patient care.
[2023-04-23] MEDS: K and/or MAG REPLACEMENT MC SCH ×2 (07:25→20:00)
[2023-04-23] MEDS: CefTRIAXone/D5W-Rocephin 1gm 50 ML IV SCH (07:36)
[2023-04-23 07:37] VITALS: RESP 18; O2SAT 94
[2023-04-23] MEDS: atorvastatin 20mg tablet PO SCH (07:37)
[2023-04-23] MEDS: levoTHYROXINE 100mcg tablet PO SCH (07:37)
[2023-04-23] MEDS: docusate sod 100mg capsule PO SCH ×2 (07:37→21:09)
[2023-04-23] MEDS: duloxetine 30mg CAPSULE.DR PO SCH ×2 (07:37→21:09)
[2023-04-23] MEDS: pantoprazole 40mg Tablet.DR PO SCH (07:37)
[2023-04-23] MEDS: enoxaparin 40mg/0.4ml syringe SUBCUT SCH (07:38)
[2023-04-23] MEDS: fludrocortisone acetate 0.1mg tablet PO SCH ×2 (07:53→21:10)
[2023-04-23 09:43] LABS: BASOPHILS % (AUTO) 0.2 % (0-1); EOSINOPHILS # (AUTO) 0.1 X10'3 (0-0.9); EOSINOPHILS % (AUTO) 1.7 % (0-6); HEMOGLOBIN 11.5 g/dl (14.0-17.9); LYMPHOCYTES # (AUTO) 0.4 X10'3 (1.1-4.8); MEAN CORPUSCULAR HEMOGLOBIN 34.3 PG (27.0-31.0); MEAN CORPUSCULAR HGB CONC 33.8 g/dL (33.0-36.5); MEAN CORPUSCULAR VOLUME 101.5 FL (78-98); MEAN PLATELET VOLUME 8.9 FL (7.4-10.4); MONOCYTES # (AUTO) 0.5 X10'3 (0-0.9); MONOCYTES % (AUTO) 10.8 % (2-12); NEUTROPHILS # (AUTO) 3.4 X10'3 (1.8-7.7); NEUTROPHILS % (AUTO) 77.3 % (42-75); PLATELET COUNT 196 X10'3 (140-440); RED BLOOD COUNT 3.35 X10'6 (4.70-6.10); RED CELL DISTRIBUTION WIDTH 14.2 % (11.5-14.5); WHITE BLOOD COUNT 4.4 X10'3 (4.5-11.0)
[2023-04-23 09:53] LABS: HEMOGLOBIN A1C 5.3 % (4.5-6.2)
[2023-04-23 10:00] VITALS: BP 148/80; PULSE 91; RESP 18; TEMP 97.8; O2SAT 93
[2023-04-23 10:14] LABS: ALANINE AMINOTRANSFERASE 25 U/L (12-78); ALBUMIN 2.7 G/DL (3.4-5.0); ALBUMIN/GLOBULIN RATIO 0.8 (1.1-1.5); ALKALINE PHOSPHATASE 115 IU/L (46-116); ANION GAP 8 (8-16); ASPARTATE AMINO TRANSFERASE 31 U/L (10-37); BILIRUBIN,TOTAL 0.5 MG/DL (0.1-1.0); BLOOD UREA NITROGEN 9 MG/DL (7-18); BUN/CREATININE RATIO 7.3 (10.0-20.0); CALCIUM 8.8 MG/DL (8.5-10.1); CHLORIDE 102 MMOL/L (99-107); CHOL/HDL RATIO 2.1 (0.00-4.99); CHOLESTEROL 140 MG/DL (0-200); CREATININE 1.24 MG/DL (0.60-1.10); GLUCOSE 105 MG/DL (70-104); HDL CHOLESTEROL 67 MG/DL (35-60); LDL CHOLESTEROL 50 MG/DL (50-100); MAGNESIUM 1.7 MG/DL (1.5-2.4); POTASSIUM 3.2 MMOL/L (3.5-5.1); SODIUM 136 MMOL/L (135-145); THYROID STIMULATING HORMONE 14.73 ulU/ml (0.34-4.50); TOTAL CARBON DIOXIDE 26.3 MMOL/L (24-32); TRIGLYCERIDES 72 MG/DL (20-135); eCRCL 45 ML/MIN; eGFR 56 ML/MIN
[2023-04-23] MEDS: potassium Cl 20 mEq SR tablet PO PRN ×3 (11:04→21:18)
[2023-04-23] MEDS: normal saline 1000ml 1,000 ML IV SCH (14:00)
[2023-04-23 18:00] VITALS: BP 166/88; PULSE 95; RESP 16; TEMP 97.9; O2SAT 95
--- NOTE | 2023-04-23 18:45 | NUR ---
Problems reprioritized. Patient report given, questions answered & plan of care reviewed with
[2023-04-23] MEDS: tamsulosin 0.4mg capsule PO SCH (21:09)
[2023-04-23] MEDS: zolpidem 5mg tablet PO SCH (21:09)
[2023-04-23 22:00] VITALS: BP 131/78; PULSE 84; RESP 20; TEMP 98.5; O2SAT 95
[2023-04-24] MEDS: vancomycin/NS 1 GM ADD-VANTAGE 250 ML X 1 DOSE IV SCH (00:15)
[2023-04-24 06:00] VITALS: BP 142/77; PULSE 69; RESP 16; TEMP 98.2; O2SAT 97
[2023-04-24 06:13] LABS: BASOPHILS % (AUTO) 0.3 % (0-1); EOSINOPHILS # (AUTO) 0.1 X10'3 (0-0.9); EOSINOPHILS % (AUTO) 2.2 % (0-6); HEMATOCRIT 31.8 % (42.0-52.0); HEMOGLOBIN 10.8 g/dl (14.0-17.9); LYMPHOCYTES # (AUTO) 0.6 X10'3 (1.1-4.8); MEAN CORPUSCULAR HEMOGLOBIN 34.2 PG (27.0-31.0); MEAN CORPUSCULAR HGB CONC 33.9 g/dL (33.0-36.5); MEAN CORPUSCULAR VOLUME 100.8 FL (78-98); MEAN PLATELET VOLUME 8.9 FL (7.4-10.4); MONOCYTES # (AUTO) 0.6 X10'3 (0-0.9); MONOCYTES % (AUTO) 11.3 % (2-12); NEUTROPHILS # (AUTO) 3.6 X10'3 (1.8-7.7); NEUTROPHILS % (AUTO) 74.2 % (42-75); PLATELET COUNT 202 X10'3 (140-440); RED BLOOD COUNT 3.15 X10'6 (4.70-6.10); RED CELL DISTRIBUTION WIDTH 14.7 % (11.5-14.5); WHITE BLOOD COUNT 4.9 X10'3 (4.5-11.0)
[2023-04-24 06:29] LABS: ALANINE AMINOTRANSFERASE 20 U/L (12-78); ALBUMIN 2.6 G/DL (3.4-5.0); ALBUMIN/GLOBULIN RATIO 0.8 (1.1-1.5); ALKALINE PHOSPHATASE 108 IU/L (46-116); ANION GAP 8 (8-16); ASPARTATE AMINO TRANSFERASE 28 U/L (10-37); BILIRUBIN,TOTAL 0.5 MG/DL (0.1-1.0); BLOOD UREA NITROGEN 11 MG/DL (7-18); BUN/CREATININE RATIO 9.2 (10.0-20.0); CALCIUM 8.4 MG/DL (8.5-10.1); CHLORIDE 105 MMOL/L (99-107); CREATININE 1.19 MG/DL (0.60-1.10); GLUCOSE 98 MG/DL (70-104); MAGNESIUM 1.5 MG/DL (1.5-2.4); POTASSIUM 3.5 MMOL/L (3.5-5.1); SODIUM 136 MMOL/L (135-145); TOTAL CARBON DIOXIDE 23.4 MMOL/L (24-32); TOTAL PROTEIN 5.8 G/DL (6.4-8.2); eCRCL 47 ML/MIN; eGFR 58 ML/MIN
--- NOTE | 2023-04-24 06:31 | NUR ---
Patient in room ORTHO 4020. I have received report from October and had the opportunity to ask questions and assume patient care.
[2023-04-24] MEDS: K and/or MAG REPLACEMENT MC SCH ×2 (07:43→20:00)
[2023-04-24 07:47] VITALS: RESP 16; O2SAT 97
[2023-04-24] MEDS: levoTHYROXINE 100mcg tablet PO SCH (07:47)
[2023-04-24] MEDS: pantoprazole 40mg Tablet.DR PO SCH (07:47)
[2023-04-24] MEDS: atorvastatin 20mg tablet PO SCH (07:47)
[2023-04-24] MEDS: docusate sod 100mg capsule PO SCH ×2 (07:47→20:02)
[2023-04-24] MEDS: duloxetine 30mg CAPSULE.DR PO SCH ×2 (07:47→20:03)
[2023-04-24] MEDS: enoxaparin 40mg/0.4ml syringe SUBCUT SCH (07:48)
[2023-04-24] MEDS: CefTRIAXone/D5W-Rocephin 1gm 50 ML IV SCH (07:52)
[2023-04-24] MEDS: fludrocortisone acetate 0.1mg tablet PO SCH ×2 (07:52→23:30)
[2023-04-24] MEDS: normal saline 1000ml 1,000 ML IV SCH (09:35)
[2023-04-24 10:00] VITALS: BP 163/93; PULSE 89; RESP 16; TEMP 97.9; O2SAT 94
--- NOTE | 2023-04-24 17:18 | NUR ---
Patient having high blood pressure, 175/103, HR 88 with VS machine, 180/102 HR 90s manual. patient is asymptomatic, no c/o pain, resting in bed, texting on his phone. MD called. Stated she would review the medications and call back. Patient does not currently have any blood pressure medications ordered.
[2023-04-24 17:20] VITALS: BP_SYST 175; BP_SYST 180; BP_DIAS 102; BP_DIAS 103; PULSE 88; PULSE 90
[2023-04-24] MEDS ORDERED: amLODIPine 5mg tablet PO ONE (17:20)
[2023-04-24 18:00] VITALS: PULSE 87; RESP 17; TEMP 98.3; O2SAT 98
--- NOTE | 2023-04-24 18:10 | NUR ---
Problems reprioritized. Patient report given, questions answered & plan of care reviewed with
[2023-04-24] MEDS: tamsulosin 0.4mg capsule PO SCH (20:02)
[2023-04-24] MEDS: zolpidem 5mg tablet PO SCH (20:03)
[2023-04-24 22:00] VITALS: BP 120/78; PULSE 85; PULSE 89; RESP 18; TEMP 98.5; O2SAT 98
[2023-04-25] MEDS: vancomycin/NS 1 GM ADD-VANTAGE 250 ML X 1 DOSE IV SCH ×2 (00:17→23:29)
[2023-04-25] MEDS: normal saline 1000ml 1,000 ML IV SCH (05:15)
[2023-04-25 06:00] VITALS: BP 161/90; PULSE 95; RESP 19; TEMP 97.2; O2SAT 93
[2023-04-25] MEDS: CefTRIAXone/D5W-Rocephin 1gm 50 ML IV SCH (07:06)
[2023-04-25] MEDS: fludrocortisone acetate 0.1mg tablet PO SCH ×2 (07:34→20:00)
[2023-04-25] MEDS: K and/or MAG REPLACEMENT MC SCH ×2 (07:34→19:54)
[2023-04-25] MEDS: enoxaparin 40mg/0.4ml syringe SUBCUT SCH (07:36)
[2023-04-25] MEDS: docusate sod 100mg capsule PO SCH ×2 (07:37→20:08)
[2023-04-25] MEDS: pantoprazole 40mg Tablet.DR PO SCH (07:37)
[2023-04-25] MEDS: atorvastatin 20mg tablet PO SCH (07:37)
[2023-04-25] MEDS: duloxetine 30mg CAPSULE.DR PO SCH ×2 (07:37→20:09)
[2023-04-25] MEDS: levoTHYROXINE 100mcg tablet PO SCH (07:37)
[2023-04-25 08:00] VITALS: RESP 19; O2SAT 93
[2023-04-25 10:00] VITALS: BP 148/77; PULSE 71; RESP 18; TEMP 98.4; O2SAT 96
[2023-04-25 10:06] LABS: BASOPHILS % (AUTO) 0.4 % (0-1); EOSINOPHILS # (AUTO) 0.1 X10'3 (0-0.9); EOSINOPHILS % (AUTO) 1.5 % (0-6); HEMATOCRIT 32.5 % (42.0-52.0); LYMPHOCYTES # (AUTO) 0.4 X10'3 (1.1-4.8); LYMPHOCYTES % (AUTO) 9.9 % (21-51); MEAN CORPUSCULAR HEMOGLOBIN 34.2 PG (27.0-31.0); MEAN CORPUSCULAR HGB CONC 33.7 g/dL (33.0-36.5); MEAN CORPUSCULAR VOLUME 101.4 FL (78-98); MONOCYTES # (AUTO) 0.4 X10'3 (0-0.9); MONOCYTES % (AUTO) 9.6 % (2-12); NEUTROPHILS # (AUTO) 3.2 X10'3 (1.8-7.7); NEUTROPHILS % (AUTO) 78.6 % (42-75); PLATELET COUNT 194 X10'3 (140-440); RED BLOOD COUNT 3.21 X10'6 (4.70-6.10); RED CELL DISTRIBUTION WIDTH 14.6 % (11.5-14.5); WHITE BLOOD COUNT 4.1 X10'3 (4.5-11.0)
[2023-04-25 10:20] LABS: ALANINE AMINOTRANSFERASE 31 U/L (12-78); ALBUMIN 2.6 G/DL (3.4-5.0); ALBUMIN/GLOBULIN RATIO 0.8 (1.1-1.5); ALKALINE PHOSPHATASE 109 IU/L (46-116); ANION GAP 5 (8-16); ASPARTATE AMINO TRANSFERASE 31 U/L (10-37); BILIRUBIN,TOTAL 0.5 MG/DL (0.1-1.0); BLOOD UREA NITROGEN 10 MG/DL (7-18); BUN/CREATININE RATIO 10.2 (10.0-20.0); CALCIUM 8.4 MG/DL (8.5-10.1); CHLORIDE 102 MMOL/L (99-107); CREATININE 0.98 MG/DL (0.60-1.10); GLUCOSE 124 MG/DL (70-104); POTASSIUM 3.1 MMOL/L (3.5-5.1); SODIUM 136 MMOL/L (135-145); TOTAL CARBON DIOXIDE 29.5 MMOL/L (24-32); TOTAL PROTEIN 5.9 G/DL (6.4-8.2); eCRCL 57 ML/MIN; eGFR 73 ML/MIN
[2023-04-25] MEDS ORDERED: potassium Cl 40MEQ/1/2NS 520ml 520 ML IV PRN ×2 (11:35)
[2023-04-25] MEDS ORDERED: magnesium 2GM in 50ml NS 50 ML IV PRN (11:35)
[2023-04-25] MEDS ORDERED: potassium Cl 20 mEq SR tablet PO PRN (11:35)
[2023-04-25] MEDS ORDERED: magnesium 4gm in 100ml NS 100 ML IV PRN (11:35)
[2023-04-25] MEDS ORDERED: magnesium Cl slow-release 64mg tablet PO PRN (11:35)
[2023-04-25] MEDS: potassium Cl 20 mEq SR tablet PO PRN ×3 (12:20→20:11)
[2023-04-25 18:00] VITALS: BP 170/95; PULSE 79; RESP 20; TEMP 97.9; O2SAT 98
--- NOTE | 2023-04-25 18:20 | NUR ---
Patient in room ORTHO 4020. I have received report from MICHEL Ly and had the opportunity to ask questions and assume patient care.
[2023-04-25] MEDS: tamsulosin 0.4mg capsule PO SCH (20:07)
[2023-04-25] MEDS: zolpidem 5mg tablet PO SCH (20:08)
[2023-04-25 22:23] VITALS: BP 162/98; PULSE 80; RESP 13; TEMP 97.8; O2SAT 95
[2023-04-25] MEDS ORDERED: VANCOMYCIN LEVEL IV ONE (23:30)
[2023-04-26] MEDS: normal saline 1000ml 1,000 ML IV SCH (01:15)
[2023-04-26 06:00] VITALS: BP 146/83; PULSE 74; RESP 13; TEMP 97.6; O2SAT 98
--- NOTE | 2023-04-26 06:03 | NUR ---
Problems reprioritized. Patient report given, questions answered & plan of care reviewed with THAI Ly.
[2023-04-26 06:06] LABS: EOSINOPHILS # (AUTO) 0.1 X10'3 (0-0.9)
[2023-04-26 06:09] LABS: BASOPHILS % (AUTO) 0.5 % (0-1); EOSINOPHILS % (AUTO) 2.5 % (0-6); HEMOGLOBIN 10.2 g/dl (14.0-17.9); LYMPHOCYTES # (AUTO) 0.5 X10'3 (1.1-4.8); LYMPHOCYTES % (AUTO) 11.9 % (21-51); MEAN CORPUSCULAR HEMOGLOBIN 34.4 PG (27.0-31.0); MEAN CORPUSCULAR HGB CONC 34.1 g/dL (33.0-36.5); MONOCYTES # (AUTO) 0.4 X10'3 (0-0.9); MONOCYTES % (AUTO) 10.9 % (2-12); NEUTROPHILS % (AUTO) 74.2 % (42-75); PLATELET COUNT 184 X10'3 (140-440); RED BLOOD COUNT 2.98 X10'6 (4.70-6.10); RED CELL DISTRIBUTION WIDTH 14.6 % (11.5-14.5)
[2023-04-26 06:30] LABS: ALANINE AMINOTRANSFERASE 32 U/L (12-78); ALBUMIN 2.4 G/DL (3.4-5.0); ALBUMIN/GLOBULIN RATIO 0.8 (1.1-1.5); ALKALINE PHOSPHATASE 107 IU/L (46-116); ANION GAP 5 (8-16); ASPARTATE AMINO TRANSFERASE 35 U/L (10-37); BILIRUBIN,TOTAL 0.4 MG/DL (0.1-1.0); BLOOD UREA NITROGEN 13 MG/DL (7-18); BUN/CREATININE RATIO 12.5 (10.0-20.0); CALCIUM 8.4 MG/DL (8.5-10.1); CHLORIDE 104 MMOL/L (99-107); CREATININE 1.04 MG/DL (0.60-1.10); GLUCOSE 103 MG/DL (70-104); MAGNESIUM 1.4 MG/DL (1.5-2.4); POTASSIUM 3.7 MMOL/L (3.5-5.1); SODIUM 134 MMOL/L (135-145); TOTAL CARBON DIOXIDE 25.5 MMOL/L (24-32); TOTAL PROTEIN 5.6 G/DL (6.4-8.2); eCRCL 54 ML/MIN; eGFR 68 ML/MIN
[2023-04-26] MEDS: docusate sod 100mg capsule PO SCH (07:32)
[2023-04-26] MEDS: atorvastatin 20mg tablet PO SCH (07:32)
[2023-04-26] MEDS: levoTHYROXINE 100mcg tablet PO SCH (07:32)
[2023-04-26] MEDS: duloxetine 30mg CAPSULE.DR PO SCH (07:32)
[2023-04-26] MEDS: enoxaparin 40mg/0.4ml syringe SUBCUT SCH (07:32)
[2023-04-26] MEDS: pantoprazole 40mg Tablet.DR PO SCH (07:32)
[2023-04-26 08:00] VITALS: BP_SYST 118; BP_SYST 138; BP_SYST 146; BP_DIAS 71; BP_DIAS 76; BP_DIAS 83; PULSE 100; PULSE 103; PULSE 90
[2023-04-26] MEDS: fludrocortisone acetate 0.1mg tablet PO SCH (08:00)
[2023-04-26] MEDS: K and/or MAG REPLACEMENT MC SCH (08:00)
[2023-04-26] MEDS: CefTRIAXone/D5W-Rocephin 1gm 50 ML IV SCH (08:06)
--- NOTE | 2023-04-26 09:30 | NUR ---
Initial: Pt DX CAUTI, hypokalemia, and TRACIE per EMR. Pt continues on a regular diet with average PO intake ~75% x 9 meals which met 100% of estimated nutrient needs and protein needs. LBM on 04/22 though noted receiving routine colace and PRN MoM 04/26. Recommend prunes and prune juice for lunch today to assist with constipation; communicated with dietary. Will continue to monitor and make recommendations as appropriate. Recommendations: 1.continue regular diet 2.monitor PO intake and need for ONS 3.routine/PRN bowel care; prune and prune juice for lunch today 04/26 to assist w/ constipation 4.scaled wt this admit subsequent weekly scaled wts Addendum: 04/26/23 at [address] Amended: Links added.
[2023-04-26 10:00] VITALS: BP 137/90; PULSE 91; RESP 17; TEMP 98.3; O2SAT 95
[2023-04-26] MEDS ORDERED: CEFD300C3 PO (12:06)
[2023-04-26] MEDS ORDERED: LACT1CAP26 PO (12:06)
--- NOTE | 2023-04-26 12:59 | NUR ---
MANAGER OPERATIONS AND PROCUREMENT documentation: I have reviewed and agree with all interventions, assessments performed and documented by Aliyah Joseph LVN.
--- NOTE | 2023-04-26 13:00 | NUR ---
Patient discharged home with grandson via POV. All personal belongings sent with, PIV discontinued with tip intact. Patient alert and appropriate at the time of discharge.
== END 2023-04-26 12:55 | disposition home or self-care (01) | DRG 699 ==
LOC: ER 15:26 → ED HOLD 22:06 → ORTHO 4S 04-22 22:00 → UNDODISIN 04-24 16:15
PROVIDERS: ADMIT Internal Medicine; ATTEND Family Medicine
DX: T83.511A Infection and inflammatory reaction due to indwelling urethral catheter, initial encounter (principal); N17.9 Acute kidney failure, unspecified; N39.0 Urinary tract infection, site not specified; D53.9 Nutritional anemia, unspecified; E87.6 Hypokalemia; Y83.8 Other surgical procedures as the cause of abnormal reaction of the patient, or of later complication, without mention of misadventure at the time of the procedure; I10 Essential (primary) hypertension; E78.00 Pure hypercholesterolemia, unspecified; C61 Malignant neoplasm of prostate; I95.1 Orthostatic hypotension; E03.9 Hypothyroidism, unspecified; G89.29 Other chronic pain; M54.9 Dorsalgia, unspecified; Y92.89 Other specified places as the place of occurrence of the external cause; Z86.73 Personal history of transient ischemic attack (TIA), and cerebral infarction without residual deficits
CPT/HCPCS: 36415; 71045; 80053; 80061; 80202; 81001; 83036; 83605; 83735; 84145; 84443; 85025; 87040; 87077; 87081; 87088; 87186; 97116; 97161; 97530; 99285; A4314; A4340; A6258; G0378; J0696; J1650; J3370; J3480; J7030; J7040

== ENCOUNTER 2023-04-30 09:21 | Emergency (ER) | payer BC ==
[~2023-04-30] VITALS: Ht 176.5 cm; Wt 84.5 kg
[~2023-04-30 09:21] MED LIST changes: -ALEN70TA37 PO; -AMLO10TA13 PO; -ATOR10TA70 PO; +ATOR40TA72 PO; -CIPR-259 PO; -DULO30CA52 PO; +DULO60CA65 PO; -FINA5TAB12 PO; +FLUD0.1T PO; +LACT1CAP26 PO; +LEVO100T9 PO; -LEVO150T PO; -LOSA100T58 PO; -NITR100C6 PO; +POTA-366 PO; -TRAZ-251 PO; +ZOLP12.543 PO
[2023-04-30 09:47] VITALS: BP 94/64; PULSE 95; RESP 18; TEMP 97.9; O2SAT 96
== END 2023-04-30 11:36 | disposition left against medical advice (07) ==
LOC: ER 09:22
DX: T83.098A Other mechanical complication of other urinary catheter, initial encounter (principal); Y82.9 Unspecified medical devices associated with adverse incidents
CPT/HCPCS: 99281

== ENCOUNTER 2023-05-04 08:49 | Inpatient (IN) | payer BC ==
[~2023-05-04] VITALS: Ht 167.6 cm; Wt 54.5 kg
[2023-05-04 01:00] VITALS: RESP 16; O2SAT 93
--- NOTE | 2023-05-04 10:50 | NUR ---
LEG BAG ATTACHED TO CONNER CATH
[2023-05-04 10:59] LABS: BASOPHILS % (AUTO) 0.4 % (0-1); EOSINOPHILS # (AUTO) 0.1 X10'3 (0-0.9); HEMATOCRIT 37.6 % (42.0-52.0); HEMOGLOBIN 12.6 g/dl (14.0-17.9); LYMPHOCYTES # (AUTO) 0.5 X10'3 (1.1-4.8); LYMPHOCYTES % (AUTO) 7.1 % (21-51); MEAN CORPUSCULAR HEMOGLOBIN 33.9 PG (27.0-31.0); MEAN CORPUSCULAR HGB CONC 33.5 g/dL (33.0-36.5); MEAN CORPUSCULAR VOLUME 101.4 FL (78-98); MONOCYTES # (AUTO) 0.5 X10'3 (0-0.9); MONOCYTES % (AUTO) 7.4 % (2-12); NEUTROPHILS # (AUTO) 5.5 X10'3 (1.8-7.7); NEUTROPHILS % (AUTO) 84.1 % (42-75); PLATELET COUNT 258 X10'3 (140-440); RED CELL DISTRIBUTION WIDTH 13.7 % (11.5-14.5); WHITE BLOOD COUNT 6.6 X10'3 (4.5-11.0)
[2023-05-04 11:22] LABS: ALANINE AMINOTRANSFERASE 27 U/L (12-78); ALBUMIN 3.6 G/DL (3.4-5.0); ALBUMIN/GLOBULIN RATIO 0.8 (1.1-1.5); ALKALINE PHOSPHATASE 133 IU/L (46-116); ANION GAP 12 (8-16); ASPARTATE AMINO TRANSFERASE 22 U/L (10-37); BILIRUBIN,TOTAL 0.9 MG/DL (0.1-1.0); BLOOD UREA NITROGEN 13 MG/DL (7-18); BUN/CREATININE RATIO 9.8 (10.0-20.0); CALCIUM 9.7 MG/DL (8.5-10.1); CHLORIDE 98 MMOL/L (99-107); CREATININE 1.33 MG/DL (0.60-1.10); GLUCOSE 115 MG/DL (70-104); SODIUM 134 MMOL/L (135-145); TOTAL CARBON DIOXIDE 24.2 MMOL/L (24-32); eCRCL 32 ML/MIN; eGFR 51 ML/MIN
[2023-05-04 11:39] LABS: POTASSIUM 2.9 MMOL/L (3.5-5.1)
[2023-05-04 12:05] LABS: BILIRUBIN,URINE NEGATIVE (Neg); CLARITY,URINE SLIGHTLY CLOUDY (Clear); COLOR,URINE YELLOW (Yellow); GLUCOSE, URINE NEGATIVE (Neg); KETONES,URINE NEGATIVE (Neg); LEUKOCYTE ESTERASE ,URINE NEGATIVE (Neg); NITRITES, URINE NEGATIVE (Neg); OCCULT BLOOD,URINE TRACE-INTACT (Neg); PROTEIN,URINE 30 mg/dl (Neg); UROBILINOGEN,URINE 0.2 E.U/dL (0.2-1.0)
[2023-05-04 12:14] LABS: UA COLLECTION TYPE STRAIGHT CATH
[2023-05-04 12:25] LABS: BACTERIA,URINE FEW /HPF (Neg); MUCUS STRANDS FEW /LPF (Neg); RBC,URINE 0-2 /HPF (0-2); SQUAMOUS EPITHELIAL CELL,UR FEW /LPF (FEW); WBC,URINE 0-4 /HPF (0-4)
[2023-05-04] MEDS ORDERED: potassium CL 10mEq/100ml bag 100 ML IV STA (12:58)
[2023-05-04] MEDS ORDERED: normal saline 1000ML IV soln IVB ONE (13:00)
--- NOTE | 2023-05-04 13:41 | NUR ---
PT AWAKE, ALERT AND ORIENTED. PT IN NAD.
--- NOTE | 2023-05-04 14:45 | NUR ---
PHARM WILL COME TO DO MED REC
[2023-05-04] MEDS ORDERED: CYAN10007 IM (15:27)
[2023-05-04] MEDS ORDERED: ZOLP12.543 PO (15:27)
[2023-05-04] MEDS ORDERED: TRAM50TA2 PO (15:27)
[2023-05-04] MEDS ORDERED: LEVO100T9 PO (15:28)
[2023-05-04] MEDS ORDERED: DULO60CA65 PO (15:29)
[2023-05-04] MEDS ORDERED: ALEN70TA80 PO (15:29)
[2023-05-04] MEDS ORDERED: FLO0.4C PO (15:29)
[2023-05-04] MEDS ORDERED: POTA-366 PO (15:29)
[2023-05-04] MEDS ORDERED: ATOR40TA72 PO (15:29)
[2023-05-04] MEDS ORDERED: magnesium 4gm in 100ml NS 100 ML IV PRN (16:40)
[2023-05-04] MEDS ORDERED: non-formulary drug (Alendronate Sodium 1 TAB) PO SCH (16:40)
[2023-05-04] MEDS ORDERED: ondansetron/PF 4mg/2ml inj IV PRN (16:40)
[2023-05-04] MEDS ORDERED: mag hydrox/Alum hydrox/simeth 30ml oral suspension PO PRN (16:40)
[2023-05-04] MEDS ORDERED: potassium Cl 40MEQ/1/2NS 520ml 520 ML IV PRN (16:40)
[2023-05-04] MEDS ORDERED: magnesium hydroxide 30ml (MOM) UD suspension PO PRN (16:40)
[2023-05-04] MEDS ORDERED: normal saline 1000ml 1,000 ML IV SCH (16:40)
[2023-05-04] MEDS ORDERED: docusate sod 100mg capsule PO PRN (16:40)
[2023-05-04] MEDS ORDERED: HYDROcodone/acetaminophen 5mg/325mg tablet PO PRN (16:40)
[2023-05-04] MEDS ORDERED: potassium Cl 20 mEq SR tablet PO PRN ×2 (16:40)
[2023-05-04] MEDS ORDERED: magnesium Cl slow-release 64mg tablet PO PRN (16:40)
[2023-05-04] MEDS ORDERED: morphine 2 MG/ML inj. syringe IV PRN ×2 (16:40)
[2023-05-04] MEDS ORDERED: acetaminophen 325mg tablet PO PRN (16:40)
[2023-05-04] MEDS: cyanocobalamin 1,000 mcg/ml inj IM SCH ×2 (18:49→22:06)
[2023-05-04] MEDS ORDERED: tamsulosin 0.4mg capsule PO SCH (21:00)
--- NOTE | 2023-05-04 23:30 | NUR ---
ATTEMPTED TO CALL REPORT TO FLOOR, RN UNAVAILABLE AND TO CALL BACK
[2023-05-05 00:55] VITALS: RESP 16; O2SAT 93
[2023-05-05 02:00] VITALS: BP 151/90; PULSE 99; RESP 16; TEMP 97.8; O2SAT 96
[2023-05-05 07:00] VITALS: BP 170/88; PULSE 101; RESP 20; TEMP 97.4; O2SAT 96
[2023-05-05] MEDS ORDERED: levoTHYROXINE 100mcg tablet PO SCH (07:00)
--- NOTE | 2023-05-05 07:30 | NUR ---
This RN notes that the TOOL SPECIALIST's physical assessment has been misdated to 05/04/23. This patient arrived to PCU 05/05/23 after midnight.
[2023-05-05 07:46] LABS: BASOPHILS % (AUTO) 0.4 % (0-1); EOSINOPHILS # (AUTO) 0.1 X10'3 (0-0.9); EOSINOPHILS % (AUTO) 1.5 % (0-6); HEMATOCRIT 32.1 % (42.0-52.0); HEMOGLOBIN 10.9 g/dl (14.0-17.9); LYMPHOCYTES # (AUTO) 0.5 X10'3 (1.1-4.8); LYMPHOCYTES % (AUTO) 9.4 % (21-51); MEAN CORPUSCULAR HEMOGLOBIN 34.4 PG (27.0-31.0); MEAN CORPUSCULAR VOLUME 101.2 FL (78-98); MONOCYTES # (AUTO) 0.6 X10'3 (0-0.9); NEUTROPHILS # (AUTO) 3.9 X10'3 (1.8-7.7); NEUTROPHILS % (AUTO) 77.7 % (42-75); PLATELET COUNT 209 X10'3 (140-440); RED BLOOD COUNT 3.18 X10'6 (4.70-6.10); WHITE BLOOD COUNT 5.1 X10'3 (4.5-11.0)
--- NOTE | 2023-05-05 07:46 | NUR ---
Page Sent to Dr Martinez regarding BP promotional table spacer PAGER ID: [phone] MESSAGE: [phone] Doni Thomas. Pt BP 170/88 HR 101. No home BP meds no PRN BP meds. PRN please ? Aurora @[phone] (97 character message out of a maximum of 240)
[2023-05-05 08:00] VITALS: RESP 20; O2SAT 96
[2023-05-05] MEDS ORDERED: CefTRIAXone/D5W-Rocephin 1gm 50 ML IV SCH (08:00)
[2023-05-05] MEDS ORDERED: atorvastatin 20mg tablet PO SCH (08:00)
[2023-05-05] MEDS ORDERED: duloxetine 30mg CAPSULE.DR PO SCH (08:00)
[2023-05-05 08:31] LABS: ALANINE AMINOTRANSFERASE 22 U/L (12-78); ALBUMIN 2.6 G/DL (3.4-5.0); ALBUMIN/GLOBULIN RATIO 0.8 (1.1-1.5); ALKALINE PHOSPHATASE 100 IU/L (46-116); ANION GAP 9 (8-16); ASPARTATE AMINO TRANSFERASE 17 U/L (10-37); BILIRUBIN,TOTAL 0.9 MG/DL (0.1-1.0); BLOOD UREA NITROGEN 9 MG/DL (7-18); BUN/CREATININE RATIO 8.3 (10.0-20.0); CALCIUM 8.6 MG/DL (8.5-10.1); CHLORIDE 103 MMOL/L (99-107); CREATININE 1.09 MG/DL (0.60-1.10); GLUCOSE 107 MG/DL (70-104); MAGNESIUM 1.7 MG/DL (1.5-2.4); PHOSPHORUS 3.4 MG/DL (2.3-4.5); POTASSIUM 3.1 MMOL/L (3.5-5.1); SODIUM 138 MMOL/L (135-145); TOTAL CARBON DIOXIDE 26.4 MMOL/L (24-32); eCRCL 40 ML/MIN; eGFR 65 ML/MIN
[2023-05-05 11:00] VITALS: BP 147/79; PULSE 97; RESP 21; TEMP 98.2; O2SAT 97
--- NOTE | 2023-05-05 13:32 | NUR ---
Patient DC to home with family. PIV was removed with cannula intact. No new Rx. All belongings, shirt, pants, shoes, cane and cell phone went home with patient. DC instructions and warning s/s were reviewed with patient and he verbalized understanding. 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 Patient was alert, oriented, and appropriate at time of DC. Patient twas wheeled out by family member Guillermo.
== END 2023-05-05 13:00 | disposition home health service (06) | DRG 641 ==
LOC: ER 08:49 → ED HOLD 16:48 → PCU 3S 05-05 00:52
PROVIDERS: ADMIT Family Medicine; ATTEND Family Medicine
DX: E87.6 Hypokalemia (principal); R65.10 Systemic inflammatory response syndrome (SIRS) of non-infectious origin without acute organ dysfunction; N17.9 Acute kidney failure, unspecified; T83.018A Breakdown (mechanical) of other urinary catheter, initial encounter; E87.1 Hypo-osmolality and hyponatremia; E78.00 Pure hypercholesterolemia, unspecified; E03.9 Hypothyroidism, unspecified; I12.9 Hypertensive chronic kidney disease with stage 1 through stage 4 chronic kidney disease, or unspecified chronic kidney disease; N18.2 Chronic kidney disease, stage 2 (mild); D53.9 Nutritional anemia, unspecified; D50.9 Iron deficiency anemia, unspecified; D75.89 Other specified diseases of blood and blood-forming organs; R79.89 Other specified abnormal findings of blood chemistry; M19.90 Unspecified osteoarthritis, unspecified site; G89.29 Other chronic pain; Y73.2 Prosthetic and other implants, materials and accessory gastroenterology and urology devices associated with adverse incidents; Z86.73 Personal history of transient ischemic attack (TIA), and cerebral infarction without residual deficits; Z85.46 Personal history of malignant neoplasm of prostate; Y92.89 Other specified places as the place of occurrence of the external cause
CPT/HCPCS: 36415; 71045; 80053; 81001; 82607; 83605; 83735; 84100; 84145; 85025; 87040; 87081; 87088; 96365; 99285; A4358; G0378; J0696; J3420; J3480; J7030